=== PATIENT | female | born 1955 | race Hispanic/Latino ===

== ENCOUNTER 2018-11-20 06:31 | Emergency (ER) | payer OTHER ==
[~2018-11-20] VITALS: Ht 157.5 cm; Wt 84.8 kg
--- OUTSIDE RECORDS SUMMARY | 2018-11-20 06:33 | XMS REPORT | Continuity of Care Document ---
Author Author [facility] Interface Address Unknown Phone Unavailable Problems Problem Status Onset Date Classification Date Reported Comments Source Hematuria, gross 01/29/2018 02/01/2018 [facility] BLOOD IN URINE Active 01/29/2018 [facility] Pseudohyperkalemia [place] 01/21/2018 01/24/2018 [facility] ABNORMAL LABS Active 01/21/2018 [facility] Near syncope 01/16/2018 01/19/2018 [facility] HYPOTENSION Active 01/16/2018 [facility] Acute pain of right knee Active Diagnosis 09/09/2018 [facility] Renal cell carcinoma of right kidney Active Diagnosis 10/06/2018 [facility] Prediabetes Active Diagnosis 10/06/2018 [facility] Hyperlipidemia, unspecified hyperlipidemia type Active Diagnosis 10/06/2018 [facility] Essential hypertension Active Diagnosis 10/06/2018 [facility] Encounter for screening mammogram for malignant neoplasm of breast Active Diagnosis 10/06/2018 [facility] Special screening for malignant neoplasms, colon Active Diagnosis 10/06/2018 [facility] Medications Medication Details Route Status Patient Instructions Ordering Provider Order Date Source Sulfamethoxazole 800 MG / Trimethoprim 160 MG Oral Tablet [Bactrim] 1 tab, PO, BID, for UTI, X 3 day, # 6 tab, 0 Refill(s) Active 01/29/2018 [facility] Sodium Chloride 0.9% (Bolus) IV 1,000 mL, 1000 ml/hr, Infuse Over: 1 hr, Route: IV, 1,000, Drug form: INJ, ONCE, Priority: STAT, Dosing Weight 75.455 kg, Start date: 01/16/18 11:52:00 CDT, Stop date: 01/16/18 11:52:00 CDT Inactive 01/16/2018 [facility] Saline Flush 0.9% 10 mL, Route: IVP, Drug Form: INJ, Dosing Weight 75.455, kg, PRN, PRN Line Flush, Start date: 01/16/18 11:52:00 CDT, Duration: 30 day, Stop date: 02/15/18 11:51:00 CDTNotes: (Same as: BD Posiflush) Inactive 01/16/2018 [facility] Opdivo IV Intravenous Active 240 MG/24ML Intravenous once per month [facility] Carvedilol 1 tablet Orally Active 6.25 MG Orally twice a day (bid) [facility] Eliquis as directed Orally Active 5 MG Orally twice a day (bid) [facility] Amlodipine Besylate TK 1 T PO QD Oral Active 10 MG Oral [facility] NIFEdipine ER 1 tablet on an empty stomach Orally Active 30 mg Orally Once a day [facility] Atorvastatin Calcium 1 tablet Orally Active 40 mg Orally Once a day [facility] MetFORMIN HCl ER TK 1 T PO QPM WITH DINNER Oral Active 500 MG Oral [facility] Allergies, Adverse Reactions, Alerts Substance Category Reaction Severity Reaction type Status Date Reported Comments Source Levothyroxine Sodium Adverse Reaction vomiting Adverse Reaction Active 09/27/2018 [facility] levothyroxine Assertion Drug allergy Active [facility] Immunizations Immunization Date Given Site Status Last Updated Comments Source Results Order Name Results Value Reference Range Date Interpretation Comments Source URINE AND STOOL UA Color Red *ABN* (01/29/18 10:20 AM) Yellow 01/29/2018 [facility] URINE AND STOOL UA Urobilinogen <=1.0 mg/dL 0.1 - 1.0 01/29/2018 [facility] URINE AND STOOL UA Mucus Few /LPF None Seen /LPF 01/29/2018 [facility] URINE AND STOOL UA Bacteria Few /HPF None Seen /HPF 01/29/2018 [facility] URINE AND STOOL UA WBC 182 /HPF 0 - 5 01/29/2018 [facility] URINE AND STOOL UA RBC null 0 - 2 01/29/2018 [facility] URINE AND STOOL UA Sq Epi Occasional /LPF Few /LPF 01/29/2018 [facility] URINE AND STOOL UA Leuk Est Trace *ABN* (01/29/18 10:20 AM) Negative 01/29/2018 [facility] URINE AND STOOL UA Blood Moderate *ABN* (7/7/18 10:20 AM) Negative 01/29/2018 [facility] URINE AND STOOL UA Nitrite Negative (01/29/18 10:20 AM) Negative 01/29/2018 [facility] URINE AND STOOL UA Turbidity Clear (01/29/18 10:20 AM) Clear 01/29/2018 [facility] URINE AND STOOL UA Protein 100 mg/dL Negative mg/dL 01/29/2018 [facility] URINE AND STOOL UA Spec Grav 1.008 <=1.030 01/29/2018 [facility] URINE AND STOOL UA pH 6.0 5.0 - 8.0 01/29/2018 [facility] URINE AND STOOL UA Bili Negative *NA* (01/29/18 10:20 AM) Negative 01/29/2018 [facility] URINE AND STOOL UA Ketones Negative mg/dL Negative mg/dL 01/29/2018 [facility] URINE AND STOOL UA Glucose 50 mg/dL Negative mg/dL 01/29/2018 [facility] Culture: Urine No Growth 01/29/2018 [facility] CHEM PANEL A/G Ratio 1.0 0.7 - 1.6 01/29/2018 [facility] CHEM PANEL Globulin 3.7 g/dL 2.7 - 4.2 01/29/2018 [facility] CHEM PANEL AGAP 14.7 meq/L 10.0 - 20.0 01/29/2018 [facility] CHEM PANEL B/C Ratio 20 6 - 25 01/29/2018 [facility] CHEM PANEL eGFR 55 mL/min/1.73m2 01/29/2018 Result Comment: The eGFR is calculated using the CKD-EPI formula. In most young, healthy individuals the eGFR will be >90 mL/min/1.73m2. The eGFR declines with age. An eGFR of 60-89 may be normal in some populations, particularly the elderly, for whom the CKD-EPI formula has not been extensively validated. Use of the eGFR is not recommended in the following populations: Individuals with unstable creatinine concentrations, including patients and those with serious co-morbid conditions. Patients with extremes in muscle mass or diet. The data above are obtained from the National Kidney Disease Education Program (NKDEP) which additionally recommends that when the eGFR is used in patients with extremes of body mass index for purposes of drug dosing, the eGFR should be multiplied by the estimated BMI. [facility] CHEM PANEL Glucose Lvl 120 mg/dL 70 - 99 01/29/2018 [facility] CHEM PANEL Sodium Lvl 141 meq/L 135 - 145 01/29/2018 [facility] CHEM PANEL Creatinine Lvl 1.10 mg/dL 0.50 - 1.40 01/29/2018 [facility] CHEM PANEL BUN 22 mg/dL 7 - 22 01/29/2018 [facility] CHEM PANEL Chloride Lvl 107 meq/L 95 - 109 01/29/2018 [facility] CHEM PANEL Potassium Lvl 4.7 meq/L 3.5 - 5.1 01/29/2018 [facility] CHEM PANEL Albumin Lvl 3.7 g/dL 3.5 - 5.0 01/29/2018 [facility] CHEM PANEL Total Protein 7.4 g/dL 6.4 - 8.4 01/29/2018 [facility] CHEM PANEL Calcium Lvl 9.0 mg/dL 8.5 - 10.5 01/29/2018 [facility] CHEM PANEL CO2 24 meq/L 24 - 32 01/29/2018 [facility] CHEM PANEL ALT 36 unit/L 0 - 65 01/29/2018 [facility] CHEM PANEL Bili Total 0.3 mg/dL 0.2 - 1.3 01/29/2018 [facility] CHEM PANEL Alk Phos 143 unit/L 39 - 136 01/29/2018 [facility] CHEM PANEL AST 22 unit/L 0 - 37 01/29/2018 [facility] HEMATOLOGY Monocytes 4.3 % 2.0 - 12.0 01/29/2018 [facility] HEMATOLOGY Eosinophils 0.6 % 0.0 - 4.0 01/29/2018 [facility] HEMATOLOGY Lymphocytes 20.6 % 20.0 - 40.0 01/29/2018 [facility] HEMATOLOGY Segs 74.3 % 45.0 - 75.0 01/29/2018 [facility] HEMATOLOGY Lymphocytes # 1.3 K/CMM 1.0 - 5.5 01/29/2018 [facility] HEMATOLOGY Segs-Bands # 4.6 K/CMM 1.5 - 8.1 01/29/2018 [facility] HEMATOLOGY Basophils 0.2 % 0.0 - 1.0 01/29/2018 [facility] HEMATOLOGY Monocytes # 0.3 K/CMM 0.0 - 0.8 01/29/2018 [facility] HEMATOLOGY PTT 32.6 s 22.9 - 35.8 01/29/2018 [facility] HEMATOLOGY PT 14.7 s 12.0 - 14.7 01/29/2018 [facility] HEMATOLOGY INR 1.15 0.85 - 1.17 01/29/2018 [facility] RDW 20.2 % 11.5 - 14.5 01/29/2018 [facility] MPV 8.0 fL 7.4 - 10.4 01/29/2018 [facility] Platelet 203 K/CMM 133 - 450 01/29/2018 [facility] RBC 3.74 M/CMM 4.20 - 5.40 01/29/2018 [facility] Hgb 11.1 g/dL 12.0 - 16.0 01/29/2018 [facility] MCV 89.9 fL 80.0 - 98.0 01/29/2018 [facility] MCH 29.8 pg 27.0 - 31.0 01/29/2018 [facility] MCHC 33.2 g/dL 32.0 - 36.0 01/29/2018 [facility] WBC 6.2 K/CMM 3.7 - 10.4 01/29/2018 [facility] Hct 33.6 % 36.0 - 48.0 01/29/2018 [facility] Retroperitoneal Complete US Retroperitoneal Complete US Patient Name: ANGELLA MAHONEY : 1955 Age: 62 years, Female MR: [id number] Study: Retroperitoneal Complete US 01/29/2018 9:25 AM CDT Examination: Renal ultrasound (retroperitoneal) Indication: Hematuria. Clinical information: Hematuria - hx of right nephrectomy, on eliquis, with blood clots in urine. Comparison: None Technique: Transverse and longitudinal images of the kidneys and bladder were obtained. Findings: Right kidney: Right nephrectomy. Left kidney: Length 13.2 x 6.6 x 5.4 cm. Cortex: normal Echogenicity: Normal Collecting system: No echogenic calculi. No hydronephrosis. Cyst/mass: None Urinary bladder: Pulido catheter is present in the decompressed urinary bladder. Aorta: Normal. No aneurysm is identified. Inferior vena cava: Not visualized. Ascites: None IMPRESSION: No acute sonographic abnormality. Right nephrectomy. SL: WR2-M 01/29/2018 - - Read by: Wyatt Mcgrath MD Dictated Date/time: 01/29/18 10:44 Electronically Signed by: Wyatt Mcgrath MD 01/29/18 10:50 FINAL REPORT [facility] Retroperitoneal Complete US Retroperitoneal Complete US Common iliac arteries: Normal. Patient Name: ANGELLA MAHONEY : 1955 Age: 62 years, Female MR: [id number] Study: Retroperitoneal Complete US 01/29/2018 9:25 AM CDT Examination: Renal ultrasound (retroperitoneal) Indication: Hematuria. Clinical information: Hematuria - hx of right nephrectomy, on eliquis, with blood clots in urine. Comparison: None Technique: Transverse and longitudinal images of the kidneys and bladder were obtained. Findings: Right kidney: Right nephrectomy. Left kidney: Length 13.2 x 6.6 x 5.4 cm. Cortex: normal Echogenicity: Normal Collecting system: No echogenic calculi. No hydronephrosis. Cyst/mass: None Urinary bladder: Pulido catheter is present in the decompressed urinary bladder. Aorta: Normal. No aneurysm is identified. Inferior vena cava: Not visualized. Ascites: None IMPRESSION: No acute sonographic abnormality. Right nephrectomy. SL: WR2-M 01/29/2018 - - Read by: Wyatt Mcgrath MD Dictated Date/time: 03/24/18 16:15 Electronically Signed by: Wyatt Mcgrath MD 03/24/18 16:18 FINAL REPORT - - Read by: Wyatt Mcgrath MD Dictated Date/time: 01/29/18 10:44 Electronically Signed by: Wyatt Mcgrath MD 01/29/18 10:50 FINAL REPORT [facility] CHEM PANEL eGFR 66 mL/min/1.73m2 01/21/2018 Result Comment: The eGFR is calculated using the CKD-EPI formula. In most young, healthy individuals the eGFR will be >90 mL/min/1.73m2. The eGFR declines with age. An eGFR of 60-89 may be normal in some populations, particularly the elderly, for whom the CKD-EPI formula has not been extensively validated. Use of the eGFR is not recommended in the following populations: Individuals with unstable creatinine concentrations, including patients and those with serious co-morbid conditions. Patients with extremes in muscle mass or diet. The data above are obtained from the National Kidney Disease Education Program (NKDEP) which additionally recommends that when the eGFR is used in patients with extremes of body mass index for purposes of drug dosing, the eGFR should be multiplied by the estimated BMI. [facility] CHEM PANEL Calcium Lvl 8.7 mg/dL 8.5 - 10.5 01/21/2018 [facility] CHEM PANEL CO2 24 meq/L 24 - 32 01/21/2018 [facility] CHEM PANEL Glucose Lvl 76 mg/dL 70 - 99 01/21/2018 [facility] CHEM PANEL BUN 19 mg/dL 7 - 01/21/2018 [facility] CHEM PANEL Creatinine Lvl 0.95 mg/dL 0.50 - 1.40 01/21/2018 [facility] CHEM PANEL Sodium Lvl 136 meq/L 135 - 145 01/21/2018 [facility] CHEM PANEL Chloride Lvl 105 meq/L 95 - 109 01/21/2018 [facility] CHEM PANEL Potassium Lvl 4.4 meq/L 3.5 - 5.1 01/21/2018 [facility] CHEM PANEL AGAP 11.4 meq/L 10.0 - 20.0 01/21/2018 [facility] CHEM PANEL eGFR 56 mL/min/1.73m2 01/21/2018 Result Comment: The eGFR is calculated using the CKD-EPI formula. In most young, healthy individuals the eGFR will be >90 mL/min/1.73m2. The eGFR declines with age. An eGFR of 60-89 may be normal in some populations, particularly the elderly, for whom the CKD-EPI formula has not been extensively validated. Use of the eGFR is not recommended in the following populations: Individuals with unstable creatinine concentrations, including patients and those with serious co-morbid conditions. Patients with extremes in muscle mass or diet. The data above are obtained from the National Kidney Disease Education Program (NKDEP) which additionally recommends that when the eGFR is used in patients with extremes of body mass index for purposes of drug dosing, the eGFR should be multiplied by the estimated BMI. [facility] CHEM PANEL Calcium Lvl 8.8 mg/dL 8.5 - 10.5 01/21/2018 [facility] CHEM PANEL CO2 26 meq/L 24 - 32 01/21/2018 [facility] CHEM PANEL Chloride Lvl 106 meq/L 95 - 109 01/21/2018 [facility] CHEM PANEL Potassium Lvl 5.4 meq/L 3.5 - 5.1 01/21/2018 [facility] CHEM PANEL Sodium Lvl 139 meq/L 135 - 145 01/21/2018 [facility] CHEM PANEL Glucose Lvl 81 mg/dL 70 - 99 01/21/2018 [facility] CHEM PANEL Creatinine Lvl 1.08 mg/dL 0.50 - 1.40 01/21/2018 [facility] CHEM PANEL BUN 20 mg/dL 7 - 01/21/2018 [facility] CHEM PANEL AGAP 12.4 meq/L 10.0 - 20.0 01/21/2018 [facility] HEMATOLOGY RDW 19.2 % 11.5 - 14.5 01/21/2018 [facility] Platelet 166 K/CMM 133 - 450 01/21/2018 [facility] MPV 8.0 fL 7.4 - 10.4 01/21/2018 [facility] WBC 3.2 K/CMM 3.7 - 10.4 01/21/2018 [facility] MCV 89.3 fL 80.0 - 98.0 01/21/2018 [facility] MCH 29.9 pg 27.0 - 31.0 01/21/2018 [facility] Hgb 12.3 g/dL 12.0 - 16.0 01/21/2018 [facility] MCHC 33.4 g/dL 32.0 - 36.0 01/21/2018 [facility] RBC 4.10 M/CMM 4.20 - 5.40 01/21/2018 [facility] Hct 36.6 % 36.0 - 48.0 01/21/2018 [facility] PT 14.5 s 12.0 - 14.7 01/21/2018 [facility] PTT 36.2 s 22.9 - 35.8 01/21/2018 [facility] INR 1.13 0.85 - 1.17 01/21/2018 [facility] Eosinophils # 0.1 K/CMM 0.0 - 0.5 01/21/2018 [facility] HEMATOLOGY Monocytes # 0.2 K/CMM 0.0 - 0.8 01/21/2018 [facility] Lymphocytes # 1.3 K/CMM 1.0 - 5.5 01/21/2018 [facility] Segs-Bands # 1.6 K/CMM 1.5 - 8.1 01/21/2018 [facility] HEMATOLOGY Basophils 0.8 % 0.0 - 1.0 01/21/2018 [facility] HEMATOLOGY Eosinophils 3.2 % 0.0 - 4.0 01/21/2018 [facility] HEMATOLOGY Lymphocytes 41.5 % 20.0 - 40.0 01/21/2018 [facility] HEMATOLOGY Monocytes 5.3 % 2.0 - 12.0 01/21/2018 [facility] HEMATOLOGY Segs 49.2 % 45.0 - 75.0 01/21/2018 [facility] URINE AND STOOL UA pH 5.0 5.0 - 8.0 01/16/2018 [facility] URINE AND STOOL UA Glucose Negative mg/dL Negative mg/dL 01/16/2018 [facility] URINE AND STOOL UA Protein Negative mg/dL Negative mg/dL 01/16/2018 [facility] URINE AND STOOL UA Urobilinogen <=1.0 mg/dL 0.1 - 1.0 01/16/2018 [facility] URINE AND STOOL UA Sq Epi None Seen 01/16/2018 [facility] URINE AND STOOL UA Hyal Cast 3 /LPF 0 - 2 01/16/2018 [facility] URINE AND STOOL UA Leuk Est Negative (01/16/18 2:28 PM) Negative 01/16/2018 [facility] URINE AND STOOL UA Bacteria Occasional /HPF None Seen /HPF 01/16/2018 [facility] URINE AND STOOL UA RBC 6 /HPF 0 - 2 01/16/2018 [facility] URINE AND STOOL UA WBC 1 /HPF 0 - 5 01/16/2018 [facility] URINE AND STOOL UA Blood Moderate *ABN* (01/16/18 2:28 PM) Negative 01/16/2018 [facility] URINE AND STOOL UA Bili Negative *NA* (01/16/18 2:28 PM) Negative 01/16/2018 [facility] URINE AND STOOL UA Ketones Negative mg/dL Negative mg/dL 01/16/2018 [facility] URINE AND STOOL UA Nitrite Negative (01/16/18 2:28 PM) Negative 01/16/2018 [facility] URINE AND STOOL UA Color Yellow *NA* (01/16/18 2:28 PM) Yellow 01/16/2018 [facility] URINE AND STOOL UA Spec Grav 1.006 <=1.030 01/16/2018 [facility] URINE AND STOOL UA Turbidity Clear (01/16/18 2:28 PM) Clear 01/16/2018 [facility] CARDIAC ENZYMES Total CK 57 unit/L 12 - 191 01/16/2018 [facility] CARDIAC ENZYMES BNP 113 pg/mL <=100 pg/mL 01/16/2018 [facility] CARDIAC ENZYMES CK MB null 0.5 - 3.6 01/16/2018 [facility] CARDIAC ENZYMES Troponin-I null 0.00 - 0.40 01/16/2018 [facility] CARDIAC ENZYMES CK MB Index null 0.0 - 2.5 01/16/2018 [facility] CHEM PANEL eGFR 39 mL/min/1.73m2 01/16/2018 Result Comment: The eGFR is calculated using the CKD-EPI formula. In most young, healthy individuals the eGFR will be >90 mL/min/1.73m2. The eGFR declines with age. An eGFR of 60-89 may be normal in some populations, particularly the elderly, for whom the CKD-EPI formula has not been extensively validated. Use of the eGFR is not recommended in the following populations: Individuals with unstable creatinine concentrations, including patients and those with serious co-morbid conditions. Patients with extremes in muscle mass or diet. The data above are obtained from the National Kidney Disease Education Program (NKDEP) which additionally recommends that when the eGFR is used in patients with extremes of body mass index for purposes of drug dosing, the eGFR should be multiplied by the estimated BMI. [facility] CHEM PANEL Total Protein 7.7 g/dL 6.4 - 8.4 01/16/2018 [facility] CHEM PANEL Albumin Lvl 3.7 g/dL 3.5 - 5.0 01/16/2018 [facility] CHEM PANEL Calcium Lvl 8.8 mg/dL 8.5 - 10.5 01/16/2018 [facility] CHEM PANEL ALT 148 unit/L 0 - 65 01/16/2018 [facility] CHEM PANEL A/G Ratio 0.9 0.7 - 1.6 01/16/2018 [facility] CHEM PANEL Chloride Lvl 103 meq/L 95 - 109 01/16/2018 [facility] CHEM PANEL CO2 22 meq/L 24 - 32 01/16/2018 [facility] CHEM PANEL B/C Ratio 18 6 - 25 01/16/2018 [facility] CHEM PANEL Globulin 4.0 g/dL 2.7 - 4.2 01/16/2018 [facility] CHEM PANEL Bili Total 0.4 mg/dL 0.2 - 1.3 01/16/2018 [facility] CHEM PANEL AGAP 16.3 meq/L 10.0 - 20.0 01/16/2018 [facility] CHEM PANEL Alk Phos 279 unit/L 39 - 136 01/16/2018 [facility] CHEM PANEL AST 70 unit/L 0 - 37 01/16/2018 [facility] CHEM PANEL Glucose Lvl 106 mg/dL 70 - 99 01/16/2018 [facility] CHEM PANEL Sodium Lvl 137 meq/L 135 - 145 01/16/2018 [facility] CHEM PANEL Creatinine Lvl 1.47 mg/dL 0.50 - 1.40 01/16/2018 [facility] CHEM PANEL Potassium Lvl 4.3 meq/L 3.5 - 5.1 01/16/2018 [facility] CHEM PANEL BUN 27 mg/dL 7 - 22 01/16/2018 [facility] MCH 29.0 pg 27.0 - 31.0 01/16/2018 [facility] MCHC 33.1 g/dL 32.0 - 36.0 01/16/2018 [facility] RDW 18.6 % 11.5 - 14.5 01/16/2018 [facility] Platelet 112 K/CMM 133 - 450 01/16/2018 [facility] MCV 87.8 fL 80.0 - 98.0 01/16/2018 [facility] MPV 8.9 fL 7.4 - 10.4 01/16/2018 [facility] Hct 37.0 % 36.0 - 48.0 01/16/2018 [facility] Hgb 12.2 g/dL 12.0 - 16.0 01/16/2018 [facility] RBC 4.21 M/CMM 4.20 - 5.40 01/16/2018 [facility] WBC 2.8 K/CMM 3.7 - 10.4 01/16/2018 [facility] Segs 61.9 % 45.0 - 75.0 01/16/2018 [facility] Lymphocytes 27.0 % 20.0 - 40.0 01/16/2018 [facility] Monocytes 6.1 % 2.0 - 12.0 01/16/2018 [facility] Eosinophils 4.1 % 0.0 - 4.0 01/16/2018 [facility] Basophils 0.9 % 0.0 - 1.0 01/16/2018 [facility] Segs-Bands # 1.7 K/CMM 1.5 - 8.1 01/16/2018 [facility] Lymphocytes # 0.8 K/CMM 1.0 - 5.5 01/16/2018 [facility] Monocytes # 0.2 K/CMM 0.0 - 0.8 01/16/2018 [facility] Eosinophils # 0.1 K/CMM 0.0 - 0.5 01/16/2018 [facility] Chest 1view DX Chest 1view DX Clinical Indication: - near syncope Comparison: None FINDINGS: The frontal chest radiograph shows normal lung volumes without interstitial or airspace opacities, pleural effusions or pneumothorax. The cardiomediastinal contours are normal. The trachea is midline. There is mild elevation of the right hemidiaphragm. There are no clinically significant osseous abnormalities noted. IMPRESSION: No chest radiographic evidence of acute cardiopulmonary disease. SL: [id number] 01/16/2018 - - Read by: Alyssa Mendoza DO Dictated Date/time: 01/16/18 13:29 Electronically Signed by: Alyssa Mendoza DO 01/16/18 13:30 FINAL REPORT [facility] Brain wo contrast CT Brain wo contrast CT Clinical Indication: - syncope; Comparison: None TECHNIQUE: CT images were obtained from the foramen magnum to the vertex without the use of intravenous contrast on a multidetector CT. Coronal and sagittal reconstructions were obtained. CT radiation dose DLP: 1196.82 mGy-cm FINDINGS: BRAIN PARENCHYMA: There are normal sykes-white interfaces, sulci and gyri. There are no focal mass lesions on this noncontrast head CT. There is no mass effect, midline shift or edema. There are no intra-axial or extra-axial fluid collections, intraventricular or intraparenchymal hemorrhage. The pineal, sellar, brainstem, cerebellum and skull base regions appear unremarkable. VENTRICLES: The lateral ventricles, third and fourth ventricles appear unremarkable. The basilar cisterns are normal. ORBITS, MASTOIDS AND PARANASAL SINUSES: The visualized orbits and paranasal sinuses are unremarkable. The mastoid air cells are clear. SKULL: There are no osseous abnormalities. If there is further concern for intracranial pathology or acute stroke, MRI of the brain may be performed for complete assessment. IMPRESSION: Unremarkable noncontrast head CT with no mass, hemorrhage or subacute stroke. SL: WR3-M 01/16/2018 - - Read by: Derrick Wooten MD Dictated Date/time: 01/16/18 13:19 Electronically Signed by: Derrick Wooten MD 01/16/18 13:20 FINAL REPORT [facility] Vital Signs Vital Sign Value Date Comments Source Weight 196 09/27/2018 [facility] Height 62 09/27/2018 [facility] Heart Rate 94 09/27/2018 [facility] Diastolic (mm Hg) 68 09/27/2018 [facility] Systolic (mm Hg) 130 09/27/2018 [facility] Weight 192 08/23/2018 [facility] Height 62 08/23/2018 [facility] Heart Rate 85 08/23/2018 [facility] Diastolic (mm Hg) 70 08/23/2018 [facility] Systolic (mm Hg) 134 08/23/2018 [facility] Systolic (mm Hg) 123 01/29/2018 [facility] Diastolic (mm Hg) 85 01/29/2018 [facility] Temperature Oral (F) 98.0 F 01/29/2018 [facility] Heart Rate 68 01/29/2018 [facility] Respitory Rate 8 01/29/2018 [facility] Respitory Rate 18 01/29/2018 [facility] Diastolic (mm Hg) 62 01/29/2018 [facility] Heart Rate 70 01/29/2018 [facility] Systolic (mm Hg) 115 01/29/2018 [facility] Temperature Oral (F) 98.0 F 01/29/2018 [facility] Respitory Rate 18 01/29/2018 [facility] Heart Rate 80 01/29/2018 [facility] Systolic (mm Hg) 135 01/29/2018 [facility] Diastolic (mm Hg) 73 01/29/2018 [facility] Systolic (mm Hg) 178 01/21/2018 [facility] Diastolic (mm Hg) 77 01/21/2018 [facility] Respitory Rate 15 01/21/2018 [facility] Systolic (mm Hg) 126 01/21/2018 [facility] Diastolic (mm Hg) 66 01/21/2018 [facility] Respitory Rate 18 01/21/2018 [facility] Heart Rate 72 01/21/2018 [facility] Temperature Oral (F) 98.3 F 01/21/2018 [facility] Respitory Rate 18 01/16/2018 [facility] Systolic (mm Hg) 147 01/16/2018 [facility] Diastolic (mm Hg) 62 01/16/2018 [facility] Heart Rate 63 01/16/2018 [facility] Systolic (mm Hg) 123 01/16/2018 [facility] Diastolic (mm Hg) 55 01/16/2018 [facility] Respitory Rate 18 01/16/2018 [facility] Weight 75.455 01/16/2018 [facility] Height 157.48 cm 01/16/2018 [facility] BMI Calculated 30.43 01/16/2018 [facility] Heart Rate 63 01/16/2018 [facility] Temperature Oral (F) 98.6 F 01/16/2018 [facility] Systolic (mm Hg) 106 01/16/2018 [facility] Diastolic (mm Hg) 65 01/16/2018 [facility] Respitory Rate 18 01/16/2018 [facility] Encounters Location Location Details Encounter Type Encounter Number Reason For Visit Attending Provider ADM Date DC Date Status Source [facility] Emergency [id number] Charles Ly 01/16/2018 01/16/2018 [facility] Emergency [id number] Charles Ly 01/21/2018 01/21/2018 [facility] Emergency [id number] Chapis William 01/29/2018 01/29/2018 [facility] Procedures Procedure Code Date Perfomer Comments Source
--- OUTSIDE RECORDS SUMMARY | 2018-11-20 06:33 | XMS REPORT | Clinical Summary ---
Author Author [facility] Organization [facility] Address Unknown Phone Unavailable Care Team Providers Care Student Support Services Director Name Role Phone Mustapha White PCP Wyatt Beltre 33 Unavailable Allergies Comments Active Allergy Reactions Severity Noted Date Other reaction(s): vomiting Levothyroxine 12/10/2017 Lisinopril 12/10/2017 Medications End Date Status Medication Sig Dispensed Refills Start Date Active metFORMIN (GLUCOPHAGE-XR) . 0 500 MG 24 hr tablet 8 Active atorvastatin (LIPITOR) 40 Take 40 mg by 0 MG tablet mouth daily. Active NIFEdipine (ADALAT CC) 30 Take 30 mg by 0 MG 24 hr tablet mouth daily. Active carvedilol (COREG) 6.25 Take 6.25 mg 0 MG tablet by mouth 2 (two) times daily with breakfast and dinner. Active apixaban (ELIQUIS) 5 mg Take 5 mg by 0 Tab tablet mouth 2 (two) times daily. Active NIVOLUMAB IV Inject 0 intravenously . 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) 09/27/2017 (S/P Neprectomy, Right 09/26/2017) S/P nephrectomy, right (09/26/2017) 09/27/2017 Obesity, Class I, BMI 30-34.9 09/27/2017 S/P tubal ligation 09/27/2017 CKD (chronic kidney disease) 09/27/2017 Anemia (Hgb 7.7 on admit) 09/27/2017 Diastolic dysfunction (L atrium, grade 1) 09/27/2017 Encounters Care Team Description Date Type Specialty Lianet He MD Liver metastases (HCC) 10/17/2018 Hospital Encounter Lianet He MD Right renal mass 10/17/2018 Hospital Encounter Lianet He MD Liver metastases (HCC) (Primary Dx); Right renal mass 10/03/2018 Outside Orders Central Scheduling [facility]ignant neoplasm of right kidney, except renal pelvis (HCC) 09/19/2018 Hospital Computed Tomography Encounter Lianet He MD 1, [facility] [address] Room Malignant neoplasm of right kidney, except renal pelvis (HCC) 09/19/2018 Hospital Computed Tomography Encounter Lianet He MD Malignant neoplasm of right kidney, except renal pelvis (HCC) (Primary Dx) 09/02/2018 Outside Orders Central Scheduling after 11/19/2017 Social History Date Tobacco Use Types Packs/Day Years Used Never Smoker Smokeless Tobacco: Never Used Alcohol Use Drinks/Week oz/Week Comments No Sex Assigned at Date Recorded Not on file Industry Job Start Date Occupation Not on file Not on file Not on file Travel End Travel History Travel Start No recent travel history available. Last Filed Vital Signs Time Taken Vital Sign Reading 10/17/2018 7:47 PM CDT Blood Pressure 158/72 10/17/2018 7:47 PM CDT Pulse 75 10/17/2018 12:15 PM CDT Temperature 37.1 C (98.7 F) 10/17/2018 7:47 PM CDT Respiratory Rate 20 10/17/2018 3:00 PM CDT Oxygen Saturation 98% - Inhaled Oxygen - Concentration 10/17/2018 6:19 AM CDT Weight 85.7 kg (189 lb) 10/17/2018 6:19 AM CDT Height 157.5 cm (5' 2") 10/17/2018 6:19 AM CDT Body Mass Index 34.57 Plan of Treatment Not on file Implants Device Identifier Shelf Expiration Date Model / Serial / Lot Implanted Type Area Manufactur er 06/22/2022 [id number] / NONE / [id number] Patch Vasc Dwarf 1.65mm 1x6in Graft/Patc [id number] - Snone h BARD:PERIP Implanted: Qty: 1 on 09/26/2017 by Ming Rush MD Procedures Comments Procedure Name Priority Date/Time Associated Diagnosis TISSUE EXAM AP Routine 10/17/2018 2:26 PM CDT US LIVER BIOPSY Routine 10/17/2018 1:15 PM CDT IR PORT-A-CATH PLACEMENT Routine 10/17/2018 11:05 AM CDT CBC W/PLT COUNT & AUTO STAT 10/17/2018 DIFFERENTIAL 7:17 AM CDT PT/APTT STAT 10/17/2018 7:17 AM CDT CBC W/PLT COUNT & AUTO STAT 10/17/2018 DIFFERENTIAL 7:[address] CHEST WITH IV CONTRAST Routine 09/19/2018 Malignant neoplasm of 7:38 AM [employer] right kidney, except renal pelvis (HCC) CT ABDOMEN/PELVIS WITH IV Routine 09/19/2018 Malignant neoplasm of CONTRAST 7:38 AM [employer] right kidney, except renal pelvis (HCC) POCT-CREATININE Routine 09/19/2018 7:03 AM [employer] after 11/19/2017 Results * Tissue Exam (10/17/2018 2:26 PM CDT) Case Report Surgical Pathology [facility] Report [facility] Case: [id number] Authorizing Provider:Lianet eH MD Collected: 10/17/2018 1426 Ordering Location: [facility] Radiology AngioReceived: 10/17/2018 1524 Pathologist: Eddie Zuniga MD Specimen:Biopsy, Liver DIAGNOSIS LIVER, MASS, BIOPSY: [facility] - CARCINOMA WITH [facility] EOSINOPHILIC AND CLEAR CELL FEATURES, COMPATIBLE WITH METASTASIS FROM PATIENT'S RENAL PRIMARY (SEE COMMENT) Signing Pathologist Direct Phone Line: [phone] COMMENT Sections show sheets of [facility] malignant cells with abundant [facility] eosinophilic and clear cell features. Small pieces of benign liver parenchyma are noted in the background. By immunohistochemistry, the tumor cells are positive for PAX8, while predominantly negative for arginase and HepPar. MOC31 shows weak focal staining in tumor cells. In light of patient's history of renal cell carcinoma, the findings are supportive of a diagnosis of metastatic carcinoma of renal origin. CPT Code(s) 75580, 75354, 91826 x 3 [facility] CLINICAL HISTORY Platinum liver mass 4.8 x 4.4 x [facility] 5.3 cm, malignant neoplasm of [facility] liver SPECIMEN SOURCE Platinum liver biopsy [facility] GROSS DESCRIPTION The specimen is received in a [facility] formalin-filled container [facility] labeled with the patient's information and labeled "pechanga liver mass biopsy" and consists of multiple stringy fragments of smalls cores ranging from 0.1 to 0.5 cm, submitted entirely in A1. CG/ew SPECIAL STUDIES The interpretation of this [facility] case included the use of [facility] immunohistochemistry or special stains. Please see the immunohistochemistry results in the COMMENT section. Immunohistochemistry technical testing was performed at [facility], Pathology Laboratory where it was developed and its performance characteristics were determined. It has not been cleared or approved by the U.S. Food and Drug Administration. The FDA has determined that such clearance or approval is not necessary. The test is used for clinical purposes. It should not be regarded as investigational or for research. This laboratory is certified under the Clinical Laboratory Improvement Amendments of 1988 (CLIA-88) as qualified to perform high complexity clinical laboratory testing. Specimen Tissue - Biopsy, Liver Performing Organization Address City/State/Zipcode Phone Number [facility] [address] [place] [address] [facility] * US liver biopsy (10/17/2018 1:15 PM CDT) Specimen Narrative Performed At FINAL REPORT [employer] PROCEDURE: Ultrasound-guided core biopsy of a liver mass. INDICATION: Liver mass. COMPARISON: CT from 09/19/2018. SEDATION: Intravenous moderate sedation was administered by radiology nursing and monitored under the direction of the undersigned radiologist. The patient's vital signs were monitored throughout the procedure and recorded in the patient's medical record by radiology nursing. Total intraservice time of sedation was 25 minutes. MEDICATIONS: 0.5 mg Versed, 25 mcg fentanyl DESCRIPTION: After obtaining informed written consent, the patient was brought to the procedure room and placed in the supine position. Preliminary ultrasound scan revealed a 5.1 x 4.8 x 4.4 cm mass in the inferior right hepatic lobe. This mass was targeted for biopsy. The overlying skin was prepped and draped in the usual, sterile fashion and local 1% lidocaine anesthesia was administered. Under ultrasound guidance, a 19-gauge introducer needle was placed into the mass, and three, 20-gauge core biopsy samples were obtained. The introducer needle was repositioned, and two additional 20-gauge core biopsies were obtained in a slightly different location within the mass. Gelfoam was instilled to obtain hemostasis. Follow-up exam revealed no evidence for hematoma. There were no immediate complications. IMPRESSION: Successful core biopsy of a right inferior hepatic lobe mass. Signed: Nilson Nielson MD Report Verified Date/Time:10/17/2018 19:32:11 Reading Location: [facility] [id number] Ultrasound Reading Room Procedure Note Interface, External Ris In - 10/17/2018 7:34 PM CDT FINAL REPORT PROCEDURE: Ultrasound-guided core biopsy of a liver mass. INDICATION: Liver mass. COMPARISON: CT from 09/19/2018. SEDATION: Intravenous moderate sedation was administered by radiology nursing and monitored under the direction of the undersigned radiologist. The patient's vital signs were monitored throughout the procedure and recorded in the patient's medical record by radiology nursing. Total intraservice time of sedation was 25 minutes. MEDICATIONS: 0.5 mg Versed, 25 mcg fentanyl DESCRIPTION: After obtaining informed written consent, the patient was brought to the procedure room and placed in the supine position. Preliminary ultrasound scan revealed a 5.1 x 4.8 x 4.4 cm mass in the inferior right hepatic lobe. This mass was targeted for biopsy. The overlying skin was prepped and draped in the usual, sterile fashion and local 1% lidocaine anesthesia was administered. Under ultrasound guidance, a 19-gauge introducer needle was placed into the mass, and three, 20-gauge core biopsy samples were obtained. The introducer needle was repositioned, and two additional 20-gauge core biopsies were obtained in a slightly different location within the mass. Gelfoam was instilled to obtain hemostasis. Follow-up exam revealed no evidence for hematoma. There were no immediate complications. IMPRESSION: Successful core biopsy of a right inferior hepatic lobe mass. Signed: Nilson Nielson MD Report Verified Date/Time: 10/17/2018 19:32:11 Reading Location: [facility] [id number] Ultrasound Reading Room Performing Organization Address City/State/Zipcode Phone Number [facility] * IR Port-a-Cath Placement (10/17/2018 11:05 AM CDT) Specimen Narrative Performed At FINAL REPORT [facility] HISTORY: Hepatocellular carcinoma PROCEDURE: Following informed written consent, the patient's right cervical region and anterior chest wall were prepped draped in the usual sterile manner and maximum sterile barrier techniques were utilized. 2% lidocaine was given locally for anesthesia. Additionally, the patient received 1 mg IV Versed and 50 mcg IV fentanyl for conscious sedation and pain control. Vital signs were monitored and remained stable. 1 g IV Ancef was given prior to the procedure for antibiotic prophylaxis. Conscious sedation and continuous patient monitoring were performed by the attending radiologist and a registered nurse for approximately 30 minutes during the procedure. Access was gained to the right internal jugular vein using ultrasound guidance a micropuncture needle. A short transverse incision was made in the right anterior chest wall. Using blunt dissection, a subcutaneous pocket was created just beneath the incision. The va catheter was tunneled from the pocket to the jugular access site in place through a peel-away sheath into position centrally under fluoroscopic control. The catheter was cut to appropriate length and attached to the portacatheter reservoir which was subsequently buried in the subcutaneous. The pocket was irrigated using an antibiotic solution enclosed using 3-0 Monocryl resorbable suture. Steri-Strips, dermabond and a sterile bandage were applied. There were no immediate complications. Patient was discharged from the department in stable condition. FINDINGS: Spot film of the chest following portacatheter placement demonstrates the portacatheter to lie in expected position with its tip over the caval atrial junction. There is no pneumothorax. Ultrasound image obtained prior to port placement demonstrates a patent and compressible right internal jugular vein without evidence for thrombosis. Ultrasound image of the right internal jugular vein was obtained and archived on PACs. IMPRESSION: 1. Successful uncomplicated placement of a right internal jugular chest port. Fluoroscopy time: 1.4 minutes Estimated dose in (Ka,r): 10.7 mGy Signed: Nupur Luke MD Report Verified Date/Time:10/17/2018 18:04:41 Reading Location: [place] [id number] Angio Body Reading Room Procedure Note Interface, External Ris In - 10/17/2018 6:06 PM CDT FINAL REPORT HISTORY: Hepatocellular carcinoma PROCEDURE: Following informed written consent, the patient's right cervical region and anterior chest wall were prepped draped in the usual sterile manner and maximum sterile barrier techniques were utilized. 2% lidocaine was given locally for anesthesia. Additionally, the patient received 1 mg IV Versed and 50 mcg IV fentanyl for conscious sedation and pain control. Vital signs were monitored and remained stable. 1 g IV Ancef was given prior to the procedure for antibiotic prophylaxis. Conscious sedation and continuous patient monitoring were performed by the attending radiologist and a registered nurse for approximately 30 minutes during the procedure. Access was gained to the right internal jugular vein using ultrasound guidance a micropuncture needle. A short transverse incision was made in the right anterior chest wall. Using blunt dissection, a subcutaneous pocket was created just beneath the incision. The va catheter was tunneled from the pocket to the jugular access site in place through a peel-away sheath into position centrally under fluoroscopic control. The catheter was cut to appropriate length and attached to the portacatheter reservoir which was subsequently buried in the subcutaneous. The pocket was irrigated using an antibiotic solution enclosed using 3-0 Monocryl resorbable suture. Steri-Strips, dermabond and a sterile bandage were applied. There were no immediate complications. Patient was discharged from the department in stable condition. FINDINGS: Spot film of the chest following portacatheter placement demonstrates the portacatheter to lie in expected position with its tip over the caval atrial junction. There is no pneumothorax. Ultrasound image obtained prior to port placement demonstrates a patent and compressible right internal jugular vein without evidence for thrombosis. Ultrasound image of the right internal jugular vein was obtained and archived on PACs. IMPRESSION: 1. Successful uncomplicated placement of a right internal jugular chest port. Fluoroscopy time: 1.4 minutes Estimated dose in (Ka,r): 10.7 mGy Signed: Nupur Luke MD Report Verified Date/Time: 10/17/2018 18:04:41 Reading Location: [facility] P048 Angio Body Reading Room Performing Organization Address City/State/Zipcode Phone Number [facility] * PT/aPTT (10/17/2018 7:17 AM CDT) Protime 13.7 11.7 - 14.7 seconds [facility] INR 1.0 <=5.9 [facility] PTT 31.0 22.5 - 36.0 seconds [facility] Specimen Blood Narrative Performed At RECOMMENDED COUMADIN/WARFARIN INR THERAPY RANGES [facility] STANDARD DOSE: 2.0 - 3.0 Includes: PROPHYLAXIS for venous thrombosis, [facility] systemic embolization; TREATMENT for venous thrombosis and/or pulmonary embolus. HIGH RISK: Target INR is 2.5-3.5 for patients with mechanical heart valves. Performing Organization Address City/[facility]/Zipcode Phone Number [place] [phone] [place] [address] [facility] * CBC with platelet count + automated diff (10/17/2018 7:17 AM CDT) WBC 7.5 3.5 - 10.5 K/L [facility] RBC 3.75 (L) 3.93 - 5.22 M/L [facility] Hemoglobin 11.0 (L) 11.2 - 15.7 GM/DL [facility] Hematocrit 36.1 34.1 - 44.9 % [facility] MCV 96.3 (H) 79.4 - 94.8 fL [facility] MCH 29.3 25.6 - 32.2 pg [facility] MCHC 30.5 (L) 32.2 - 35.5 GM/DL [facility] RDW 14.1 11.7 - 14.4 % [facility] Platelets 229 150 - 450 K/CU MM [facility] MPV 11.3 9.4 - 12.3 fL [facility] nRBC 0 0 - 0 /100 WBC [facility] % Neutros 71 % [facility] % Lymphs 22 % [facility] % Monos 5 % [facility] % Eos 1 % [facility] % Baso 1 % [facility] # Neutros 5.35 1.56 - 6.13 K/L [facility] # Lymphs 1.66 1.18 - 3.74 K/L [facility] # Monos 0.36 0.24 - 0.36 K/L [facility] # Eos 0.08 0.04 - 0.36 K/L [facility] # Baso 0.05 0.01 - 0.08 K/L [facility] Immature 0 0 - 1 % [facility] Granulocytes-[facility] Specimen Blood Performing Organization Address City/State/Zipcode Phone Number [facility] [address] [place] [address] MED[facility]ENTER * CT Abdomen/Pelvis with IV Contrast (09/19/2018 7:38 AM [employer]) Specimen Narrative Performed At FINAL REPORT [facility] EXAM: CT Chest, Abdomen and Pelvis WITH contrast INDICATION: Renal cell [id number] COMPARISON: May 09, 2018 TECHNIQUE: Chest, abdomen and pelvis were scanned utilizing a multidetector helical scanner from the lung apex to the pubic symphysis after administration of IV contrast. Coronal and sagittal reformations were obtained. Routine protocol was performed. Scan was performed when during portal venous phase. IV CONTRAST: 150 mL of Omnipaque 300 ORAL CONTRAST: Water COMPLICATIONS: None RADIATION DOSE: Total DLP: 1067 mGy*cm Estimated effective dose: (DLP x 0.015 x size factor) mSv CTDIvol has been reviewed. It is below the limits set by the Radiation Protocol Committee (RPC).Dose modulation, iterative reconstruction, and/or weight based adjustment of the mA/kV was utilized to reduce the radiation dose to as low as reasonably achievable. FINDINGS: LINES and TUBES: None LUNGS AND AIRWAYS: Right lung nodules: *Right middle lobe nodule 1.1 cm image 60, stable *Right lower lobe nodule 0.8 cm image 80, stable PLEURA: The pleural spaces are clear. HEART AND MEDIASTINUM: The thyroid gland is normal.No mediastinal, hilar or axillary lymphadenopathy.The heart is normal in size. There is no pericardial effusion. HEPATOBILIARY: Hepatic lesions: The phase of the contrast currently is in the venous phase and in the prior scan more arterial. *Right hepatic lobe 2.3 cm lesion image 46, previously 1.4 cm *Right hepatic lobe 5 cm lesion image 59, previously 4.9 cm *Left hepatic lobe 1.2 cm lesion image 46, previously 0.8 cm *Additional subcentimeter scattered lesions. GALLBLADDER: No radio-opaque stones or sludge.No wall thickening. SPLEEN: No splenomegaly. PANCREAS: No focal masses or ductal dilatation. ADRENALS: Right adrenal gland not well visualized. KIDNEYS/URETERS: Right nephrectomy with extensive postsurgical clips. Left kidney normal. No cystic or solid mass lesions.No stones. GI TRACT: No abnormal distention, wall thickening, or evidence of bowel obstruction. Appendix is normal. PELVIC ORGANS/BLADDER: Unremarkable. LYMPH NODES: No lymphadenopathy. VESSELS: Unremarkable. PERITONEUM / RETROPERITONEUM: No free air or fluid. BONES: Unremarkable. SOFT TISSUES: Unremarkable. IMPRESSION: 1.Right nephrectomy. Increase in size of the hepatic lobe lesions and stable size of pulmonary lesions. Signed: Derek Suh MD Report Verified Date/Time:09/19/2018 09:47:22 Procedure Note Interface, External Ris In - 09/19/2018 9:49 AM [employer] FINAL REPORT EXAM: CT Chest, Abdomen and Pelvis WITH contrast INDICATION: Renal cell carcinoma C64.1 COMPARISON: May 09, 2018 TECHNIQUE: Chest, abdomen and pelvis were scanned utilizing a multidetector helical scanner from the lung apex to the pubic symphysis after administration of IV contrast. Coronal and sagittal reformations were obtained. Routine protocol was performed. Scan was performed when during portal venous phase. IV CONTRAST: 150 mL of Omnipaque 300 ORAL CONTRAST: Water COMPLICATIONS: None RADIATION DOSE: Total DLP: 1067 mGy*cm Estimated effective dose: (DLP x 0.015 x size factor) mSv CTDIvol has been reviewed. It is below the limits set by the Radiation Protocol Committee (RPC).Dose modulation, iterative reconstruction, and/or weight based adjustment of the mA/kV was utilized to reduce the radiation dose to as low as reasonably achievable. FINDINGS: LINES and TUBES: None LUNGS AND AIRWAYS: Right lung nodules: *Right middle lobe nodule 1.1 cm image 60, stable *Right lower lobe nodule 0.8 cm image 80, stable PLEURA: The pleural spaces are clear. HEART AND MEDIASTINUM: The thyroid gland is normal. No mediastinal, hilar or axillary lymphadenopathy. The heart is normal in size. There is no pericardial effusion. HEPATOBILIARY: Hepatic lesions: The phase of the contrast currently is in the venous phase and in the prior scan more arterial. *Right hepatic lobe 2.3 cm lesion image 46, previously 1.4 cm *Right hepatic lobe 5 cm lesion image 59, previously 4.9 cm *Left hepatic lobe 1.2 cm lesion image 46, previously 0.8 cm *Additional subcentimeter scattered lesions. GALLBLADDER: No radio-opaque stones or sludge. No wall thickening. SPLEEN: No splenomegaly. PANCREAS: No focal masses or ductal dilatation. ADRENALS: Right adrenal gland not well visualized. KIDNEYS/URETERS: Right nephrectomy with extensive postsurgical clips. Left kidney normal. No cystic or solid mass lesions. No stones. GI TRACT: No abnormal distention, wall thickening, or evidence of bowel obstruction. Appendix is normal. PELVIC ORGANS/BLADDER: Unremarkable. LYMPH NODES: No lymphadenopathy. VESSELS: Unremarkable. PERITONEUM / RETROPERITONEUM: No free air or fluid. BONES: Unremarkable. SOFT TISSUES: Unremarkable. IMPRESSION: 1.Right nephrectomy. Increase in size of the hepatic lobe lesions and stable size of pulmonary lesions. Signed: Derek Suh MD Report Verified Date/Time: 09/19/2018 09:47:22 Performing Organization Address City/State/Zipcode Phone Number [facility] * CT Chest with IV Contrast (09/19/2018 7:38 AM [employer]) Specimen Narrative Performed At FINAL REPORT [facility] EXAM: CT Chest, Abdomen and Pelvis WITH contrast INDICATION: Renal cell [id number] COMPARISON: May 09, 2018 TECHNIQUE: Chest, abdomen and pelvis were scanned utilizing a multidetector helical scanner from the lung apex to the pubic symphysis after administration of IV contrast. Coronal and sagittal reformations were obtained. Routine protocol was performed. Scan was performed when during portal venous phase. IV CONTRAST: 150 mL of Omnipaque 300 ORAL CONTRAST: Water COMPLICATIONS: None RADIATION DOSE: Total DLP: 1067 mGy*cm Estimated effective dose: (DLP x 0.015 x size factor) mSv CTDIvol has been reviewed. It is below the limits set by the Radiation Protocol Committee (RPC).Dose modulation, iterative reconstruction, and/or weight based adjustment of the mA/kV was utilized to reduce the radiation dose to as low as reasonably achievable. FINDINGS: LINES and TUBES: None LUNGS AND AIRWAYS: Right lung nodules: *Right middle lobe nodule 1.1 cm image 60, stable *Right lower lobe nodule 0.8 cm image 80, stable PLEURA: The pleural spaces are clear. HEART AND MEDIASTINUM: The thyroid gland is normal.No mediastinal, hilar or axillary lymphadenopathy.The heart is normal in size. There is no pericardial effusion. HEPATOBILIARY: Hepatic lesions: The phase of the contrast currently is in the venous phase and in the prior scan more arterial. *Right hepatic lobe 2.3 cm lesion image 46, previously 1.4 cm *Right hepatic lobe 5 cm lesion image 59, previously 4.9 cm *Left hepatic lobe 1.2 cm lesion image 46, previously 0.8 cm *Additional subcentimeter scattered lesions. GALLBLADDER: No radio-opaque stones or sludge.No wall thickening. SPLEEN: No splenomegaly. PANCREAS: No focal masses or ductal dilatation. ADRENALS: Right adrenal gland not well visualized. KIDNEYS/URETERS: Right nephrectomy with extensive postsurgical clips. Left kidney normal. No cystic or solid mass lesions.No stones. GI TRACT: No abnormal distention, wall thickening, or evidence of bowel obstruction. Appendix is normal. PELVIC ORGANS/BLADDER: Unremarkable. LYMPH NODES: No lymphadenopathy. VESSELS: Unremarkable. PERITONEUM / RETROPERITONEUM: No free air or fluid. BONES: Unremarkable. SOFT TISSUES: Unremarkable. IMPRESSION: 1.Right nephrectomy. Increase in size of the hepatic lobe lesions and stable size of pulmonary lesions. Signed: Derek Suh MD Report Verified Date/Time:09/19/2018 09:47:22 Procedure Note Interface, External Ris In - 09/19/2018 9:49 AM RESOURCE MANAGER FORESTER FINAL REPORT EXAM: CT Chest, Abdomen and Pelvis WITH contrast INDICATION: Renal cell carcinoma C64.1 COMPARISON: May 09, 2018 TECHNIQUE: Chest, abdomen and pelvis were scanned utilizing a multidetector helical scanner from the lung apex to the pubic symphysis after administration of IV contrast. Coronal and sagittal reformations were obtained. Routine protocol was performed. Scan was performed when during portal venous phase. IV CONTRAST: 150 mL of Omnipaque 300 ORAL CONTRAST: Water COMPLICATIONS: None RADIATION DOSE: Total DLP: 1067 mGy*cm Estimated effective dose: (DLP x 0.015 x size factor) mSv CTDIvol has been reviewed. It is below the limits set by the Radiation Protocol Committee (RPC).Dose modulation, iterative reconstruction, and/or weight based adjustment of the mA/kV was utilized to reduce the radiation dose to as low as reasonably achievable. FINDINGS: LINES and TUBES: None LUNGS AND AIRWAYS: Right lung nodules: *Right middle lobe nodule 1.1 cm image 60, stable *Right lower lobe nodule 0.8 cm image 80, stable PLEURA: The pleural spaces are clear. HEART AND MEDIASTINUM: The thyroid gland is normal. No mediastinal, hilar or axillary lymphadenopathy. The heart is normal in size. There is no pericardial effusion. HEPATOBILIARY: Hepatic lesions: The phase of the contrast currently is in the venous phase and in the prior scan more arterial. *Right hepatic lobe 2.3 cm lesion image 46, previously 1.4 cm *Right hepatic lobe 5 cm lesion image 59, previously 4.9 cm *Left hepatic lobe 1.2 cm lesion image 46, previously 0.8 cm *Additional subcentimeter scattered lesions. GALLBLADDER: No radio-opaque stones or sludge. No wall thickening. SPLEEN: No splenomegaly. PANCREAS: No focal masses or ductal dilatation. ADRENALS: Right adrenal gland not well visualized. KIDNEYS/URETERS: Right nephrectomy with extensive postsurgical clips. Left kidney normal. No cystic or solid mass lesions. No stones. GI TRACT: No abnormal distention, wall thickening, or evidence of bowel obstruction. Appendix is normal. PELVIC ORGANS/BLADDER: Unremarkable. LYMPH NODES: No lymphadenopathy. VESSELS: Unremarkable. PERITONEUM / RETROPERITONEUM: No free air or fluid. BONES: Unremarkable. SOFT TISSUES: Unremarkable. IMPRESSION: 1.Right nephrectomy. Increase in size of the hepatic lobe lesions and stable size of pulmonary lesions. Signed: Derek Suh MD Report Verified Date/Time: 09/19/2018 09:47:22 Performing Organization Address [facility] Number GE RIS * POC-Creatinine (09/19/2018 7:03 AM RESOURCE MANAGER FORESTER) POC-Creatinine 1.1Comment: TESTED AT [facility] 0.6 - 1.3 mg/dL [facility] [address] [place] [facility] [place] [address] POC-EGFR 51 mL/min/1.73M2 [facility] Specimen Blood Performing Organization Address [facility] Cent[facility]ode Phone Number [address] [address] [facility] after 11/19/2017 Insurance Payer Benefit Subscriber ID Type Phone Address Plan / Group [employer] xxxxxxxxxx [employer] EXCHANGE Advance Directives For more information, please contact: [address] [address] Date Inactivated Comments Code Status Date Activated 10/17/2018 4:44 PM Full Code 10/17/2018 2:21 PM This code status was determined by: Patient 10/07/2017 3:09 PM Full Code 09/24/2017 5:35 PM This code status was determined by: Patient 09/24/2017 5:35 PM Full Code 09/24/2017 4:47 PM This code status was determined by: Patient
--- OUTSIDE RECORDS SUMMARY | 2018-11-20 06:33 | XMS REPORT ---
Author Author Amberly Dubois Organization [employer] Address Unknown Phone Unavailable Care Team Providers Care Produce Sorter Name Role Phone Gopal Torres Amberly CP Unavailable Allergies, Adverse Reactions, Alerts Substance Reaction Event Type Levothyroxine Sodium vomiting Drug Allergy Problems Problem Type Condition Code Onset Dates Condition Status Assessment Hyperlipidemia, unspecified hyperlipidemia type E78.5 Active Assessment Encounter for screening mammogram for malignant neoplasm of breast Z12.31 Active Assessment Essential hypertension I10 Active Assessment Prediabetes R73.03 Active Assessment Renal cell carcinoma of right kidney C64.1 Active Problem Hyperlipidemia, unspecified hyperlipidemia type E78.5 Active Problem Prediabetes R73.03 Active Problem Essential hypertension I10 Active Assessment Encounter for routine gynecological examination Z01.419 Active Assessment Special screening for malignant neoplasms, colon Z12.11 Active Problem Renal cell carcinoma of right kidney C64.1 Active Medications Medication Code System Code Instructions Start Date End Date Status Dosage NIFEdipine ER [facility] 34858722095 30 mg Orally Once a day Active 1 tablet on an empty stomach Eliquis [facility] 76124326570 5 MG Orally twice a day (bid) Active as directed Atorvastatin Calcium [facility] 29234491546 40 mg Orally Once a day Active 1 tablet Carvedilol [facility] 96676948059 6.25 MG Orally twice a day (bid) Active 1 tablet Opdivo [facility] 25723822185 240 MG/24ML Intravenous once per month Active IV Vital Signs Date/Time: September 27, 2018 BMI 35.84 Index Weight 196 lbs Height 62 in Cardiac Monitoring Heart Rate 94 /min Blood Pressure Diastolic 68 mm Hg Blood Pressure Systolic 130 mm Hg Results Name Result Date Reference Range Unit Abnormality Flag THINPREP TIS PAP W/REFL HPV RNA HR E6/E7,TMA ----SOURCE: None given [id number] N ----CLINICAL INFORMATION: None given [id number] N ----LMP: NONE GIVEN [id number] N ----PREV. PAP: NONE GIVEN [id number] N ----PREV. BX: NONE GIVEN [id number] N Summary Purpose [employer] Submission
--- OUTSIDE RECORDS SUMMARY | 2018-11-20 06:33 | XMS REPORT ---
Author Author Amberly Dubois Organization [employer] Address Unknown Phone Unavailable Care Team Providers Care Salesperson [employer] Name Role Phone Amberly Dubois CP Unavailable Allergies, Adverse Reactions, Alerts Substance Reaction Event Type Levothyroxine Sodium vomiting Drug Allergy Problems Problem Type Condition Code Onset Dates Condition Status Assessment Acute pain of right knee M25.561 Active Assessment Renal cell carcinoma of right kidney C64.1 Active Assessment Prediabetes R73.03 Active Problem Hyperlipidemia, unspecified hyperlipidemia type E78.5 Active Problem Prediabetes R73.03 Active Problem Essential hypertension I10 Active Assessment Essential hypertension I10 Active Assessment Hyperlipidemia, unspecified hyperlipidemia type E78.5 Active Problem Renal cell carcinoma of right kidney C64.1 Active Medications Medication Code System Code Instructions Start Date End Date Status Dosage Opdivo [facility] 71136457433 240 MG/24ML Intravenous once per month Active IV Carvedilol [facility] 88153439671 6.25 MG Orally twice a day (bid) Active 1 tablet Eliquis [facility] 09456766591 5 MG Orally twice a day (bid) Active as directed Amlodipine Besylate [facility] 09494012583 10 MG Oral Active TK 1 T PO QD NIFEdipine ER [facility] 46792070495 30 mg Orally Once a day Active 1 tablet on an empty stomach Atorvastatin Calcium [facility] 81780957992 40 mg Orally Once a day Active 1 tablet MetFORMIN HCl ER [facility] 32345944089 500 MG Oral Active TK 1 T PO QPM WITH DINNER Vital Signs Date/Time: Aug 23, 2018 BMI 35.11 Index Weight 192 lbs Height 62 in Cardiac Monitoring Heart Rate 85 /min Blood Pressure Diastolic 70 mm Hg Blood Pressure Systolic 134 mm Hg Results No Known Results Summary Purpose [employer] Submission
--- OUTSIDE RECORDS SUMMARY | 2018-11-20 06:34 | XMS REPORT | Summary of Care ---
Author Author [facility] Organization [facility] Address Unknown Phone Unavailable Encounter HQ Julita(FIN) [id number] Date(s): 01/29/18 - 01/29/18 [facility] [address] [place] [address]- Encounter Diagnosis Hematuria, gross (Discharge Diagnosis) - 01/29/18 Discharge Disposition: Home or Self Care Attending Physician: Chapis William MD Vital Signs 1 2 3 Most recent to oldest [Reference Range]: 98.0 DegF (01/29/18 11:33 AM) 98.0 DegF (01/29/18 8:52 AM) Temperature Oral [96.4-99.1 DegF] 123/85 mmHg (01/29/18 11:33 AM) 135/73 mmHg (01/29/18 8:52 AM) Blood Pressure [90-140/60-90 mmHg] 115 mmHg (01/29/18 10:20 AM) Systolic Blood Pressure [90-140 mmHg] 62 mmHg (01/29/18 10:20 AM) Diastolic Blood Pressure [60-90 mmHg] 8 BRMIN *LOW* (01/29/18 11:33 AM) 18 BRMIN (01/29/18 10:20 AM) 18 BRMIN (01/29/18 8:52 AM) Respiratory Rate [14-20 BRMIN] 68 bpm (01/29/18 11:33 AM) 70 bpm (01/29/18 10:20 AM) 80 bpm (01/29/18 8:52 AM) Peripheral Pulse Rate [60-100 bpm] Problem List No data available for this section Allergies, Adverse Reactions, Alerts Substance Reaction Severity Status levothyroxine Active Medications Bactrim DS 800 mg- 160 mg oral tablet 1 tab, PO, BID, for UTI, X 3 day, # 6 tab, 0 Refill(s) Start Date: 01/29/18 Stop Date: 02/01/18 Status: Ordered Results ELECTROLYTES Most recent to 1 oldest [Reference Range]: Sodium Lvl [135-145 141 mEq/L mEq/L] (01/29/18 9:41 AM) Potassium Lvl 4.7 mEq/L [3.5-5.1 mEq/L] (01/29/18 9:41 AM) Chloride Lvl [95-109 107 mEq/L mEq/L] (01/29/18 9:41 AM) CO2 [24-32 mEq/L] 24 mEq/L (01/29/18 9:41 AM) AGAP [10.0-20.0 14.7 mEq/L mEq/L] (01/29/18 9:41 AM) CHEM PANEL Most recent to 1 oldest [Reference Range]: Creatinine Lvl 1.10 mg/dL [0.50-1.40 mg/dL] (01/29/18 9:41 AM) eGFR 55 mL/min/1.73m2 1 *NA* (01/29/18 9:41 AM) BUN [7-22 mg/dL] 22 mg/dL (01/29/18 9:41 AM) B/C Ratio [6-25] 20 (01/29/18 9:41 AM) Glucose Lvl [70-99 120 mg/dL mg/dL] *HI* (01/29/18 9:41 AM) Total Protein 7.4 g/dL [6.4-8.4 g/dL] (01/29/18 9:41 AM) Albumin Lvl [3.5-5.0 3.7 g/dL g/dL] (01/29/18 9:41 AM) Globulin [2.7-4.2 3.7 g/dL g/dL] (01/29/18 9:41 AM) A/G Ratio [0.7-1.6] 1.0 (01/29/18 9:41 AM) Calcium Lvl 9.0 mg/dL [8.5-10.5 mg/dL] (01/29/18 9:41 AM) ALT [0-65 unit/L] 36 unit/L (01/29/18 9:41 AM) AST [0-37 unit/L] 22 unit/L (01/29/18 9:41 AM) Alk Phos [39-136 143 unit/L unit/L] *HI* (01/29/18 9:41 AM) Bili Total [0.2-1.3 0.3 mg/dL mg/dL] (01/29/18 9:41 AM) 1Result Comment: The eGFR is calculated using the [...] from the National Kidney Disease Education Program ( NKDEP) which additionally recommends that when the eGFR is used in patients with extremes of body mass index for purposes of drug dosing, the eGFR should be mul tiplied by the estimated BMI. URINE AND STOOL Most recent to 1 oldest [Reference Range]: UA Turbidity [Clear] Clear (01/29/18 10:20 AM) UA Color [Yellow] Red *ABN* (01/29/18 10:20 AM) UA pH [5.0-8.0] 6.0 (01/29/18 10:20 AM) UA Spec Grav 1.008 [<=1.030] (01/29/18 10:20 AM) UA Glucose [Negative 50 mg/dL mg/dL] *ABN* (01/29/18 10:20 AM) UA Blood [Negative] Moderate *ABN* (01/29/18 10:20 AM) UA Ketones [Negative Negative mg/dL mg/dL] *NA* (01/29/18 10:20 AM) UA Protein [Negative 100 mg/dL mg/dL] *ABN* (01/29/18 10:20 AM) UA Urobilinogen <=1.0 mg/dL [0.1-1.0 mg/dL] *NA* (01/29/18 10:20 AM) UA Bili [Negative] Negative *NA* (01/29/18 10:20 AM) UA Leuk Est Trace [Negative] *ABN* (01/29/18 10:20 AM) UA Nitrite Negative [Negative] (01/29/18 10:20 AM) UA WBC [0-5 /HPF] 182 /HPF *HI* (01/29/18 10:20 AM) UA RBC [0-2 /HPF] >182 /HPF *HI* (01/29/18 10:20 AM) UA Bacteria [None Few /HPF Seen /HPF] *NA* (01/29/18 10:20 AM) UA Sq Epi [Few /LPF] Occasional /LPF *NA* (01/29/18 10:20 AM) UA Mucus [None Seen Few /LPF /LPF] *NA* (01/29/18 10:20 AM) HEMATOLOGY Most recent to 1 oldest [Reference Range]: WBC [3.7-10.4 K/CMM] 6.2 K/CMM (01/29/18 9:41 AM) RBC [4.20-5.40 3.74 M/CMM M/CMM] *LOW* (01/29/18 9:41 AM) Hgb [12.0-16.0 g/dL] 11.1 g/dL *LOW* (01/29/18 9:41 AM) Hct [36.0-48.0 %] 33.6 % *LOW* (01/29/18 9:41 AM) MCV [80.0-98.0 fL] 89.9 fL (01/29/18 9:41 AM) MCH [27.0-31.0 pg] 29.8 pg (01/29/18 9:41 AM) MCHC [32.0-36.0 33.2 g/dL g/dL] (01/29/18 9:41 AM) RDW [11.5-14.5 %] 20.2 % *HI* (01/29/18 9:41 AM) MPV [7.4-10.4 fL] 8.0 fL (01/29/18 9:41 AM) Platelet [133-450 203 K/CMM K/CMM] (01/29/18 9:41 AM) Segs [45.0-75.0 %] 74.3 % (01/29/18 9:41 AM) Lymphocytes 20.6 % [20.0-40.0 %] (01/29/18 9:41 AM) Monocytes [2.0-12.0 4.3 % %] (01/29/18 9:41 AM) Eosinophils [0.0-4.0 0.6 % %] (01/29/18 9:41 AM) Basophils [0.0-1.0 0.2 % %] (01/29/18 9:41 AM) Segs-Bands # 4.6 K/CMM [1.5-8.1 K/CMM] (01/29/18 9:41 AM) Lymphocytes # 1.3 K/CMM [1.0-5.5 K/CMM] (01/29/18 9:41 AM) Monocytes # [0.0-0.8 0.3 K/CMM K/CMM] (01/29/18 9:41 AM) PT [12.0-14.7 14.7 seconds seconds] (01/29/18 9:41 AM) INR [0.85-1.17] 1.15 (01/29/18 9:41 AM) PTT [22.9-35.8 32.6 seconds seconds] (01/29/18 9:41 AM) Microbiology Reports TEST: Culture: Urine STATUS: Auth (Verified) BODY SITE: SOURCE: Urine, Clean Catch COLLECTED DATE/TIME: 01/29/18 10:20 AM FINAL REPORT No Growth Immunizations No data available for this section Procedures No data available for this section Social History Social History Type Response Smoking Status Never smoker; Exposure to Tobacco Smoke None; Cigarette Smoking Last 365 Days No; Reg Smoking Cessation Counseling No entered on: 01/29/18 Assessment and Plan No data available for this section
--- OUTSIDE RECORDS SUMMARY | 2018-11-20 06:34 | XMS REPORT | Summary of Care ---
Author Author [facility] Organization [facility] Address Unknown Phone Unavailable Encounter HQ Julita(FIN) [id number] Date(s): 01/21/18 - 01/21/18 [facility] [address] [place] [address]- [phone] Encounter Diagnosis Pseudohyperkalemia [place] (Discharge Diagnosis) - 01/21/18 Discharge Disposition: Home or Self Care Attending Physician: Charles Ly MD Vital Signs Most recent to 1 2 oldest [Reference Range]: Temperature Oral 98.3 DegF [96.4-99.1 DegF] (01/21/18 11:13 AM) Blood Pressure 178/77 mmHg 126/66 mmHg [90-140/60-90 mmHg] *HI* (01/21/18 11:13 AM) (01/21/18 4:24 PM) Respiratory Rate 15 BRMIN 18 BRMIN [14-20 BRMIN] (01/21/18 4:24 PM) (01/21/18 11:13 AM) Peripheral Pulse 72 bpm Rate [60-100 bpm] (01/21/18 11:13 AM) Problem List No data available for this section Allergies, Adverse Reactions, Alerts Substance Reaction Severity Status levothyroxine Active Medications No data available for this section Results ELECTROLYTES Most recent to 1 2 oldest [Reference Range]: Sodium Lvl [135-145 136 mEq/L 139 mEq/L mEq/L] (01/21/18 3:23 PM) (01/21/18 1:14 PM) Potassium Lvl 4.4 mEq/L 5.4 mEq/L [3.5-5.1 mEq/L] (01/21/18 3:23 PM) *HI* (01/21/18 1:14 PM) Chloride Lvl [95-109 105 mEq/L 106 mEq/L mEq/L] (01/21/18 3:23 PM) (01/21/18 1:14 PM) CO2 [24-32 mEq/L] 24 mEq/L 26 mEq/L (01/21/18 3:23 PM) (01/21/18 1:14 PM) AGAP [10.0-20.0 11.4 mEq/L 12.4 mEq/L mEq/L] (01/21/18 3:23 PM) (01/21/18 1:14 PM) CHEM PANEL Most recent to 1 2 oldest [Reference Range]: Creatinine Lvl 0.95 mg/dL 1.08 mg/dL [0.50-1.40 mg/dL] (01/21/18 3:23 PM) (01/21/18 1:14 PM) eGFR 66 mL/min/1.73m2 1 56 mL/min/1.73m2 2 *NA* *NA* (01/21/18 3:23 PM) (01/21/18 1:14 PM) BUN [7-22 mg/dL] 19 mg/dL 20 mg/dL (01/21/18 3:23 PM) (01/21/18 1:14 PM) Glucose Lvl [70-99 76 mg/dL 81 mg/dL mg/dL] (01/21/18 3:23 PM) (01/21/18 1:14 PM) Calcium Lvl 8.7 mg/dL 8.8 mg/dL [8.5-10.5 mg/dL] (01/21/18 3:23 PM) (01/21/18 1:14 PM) 1Result Comment: The eGFR is calculated using [...] be mul tiplied by the estimated BMI. 2Result Comment: The eGFR is calculated using the [...] be mul tiplied by the estimated BMI. HEMATOLOGY Most recent to 1 2 oldest [Reference Range]: WBC [3.7-10.4 K/CMM] 3.2 K/CMM *LOW* (01/21/18 1:14 PM) RBC [4.20-5.40 4.10 M/CMM M/CMM] *LOW* (01/21/18 1:14 PM) Hgb [12.0-16.0 g/dL] 12.3 g/dL (01/21/18 1:14 PM) Hct [36.0-48.0 %] 36.6 % (01/21/18 1:14 PM) MCV [80.0-98.0 fL] 89.3 fL (01/21/18 1:14 PM) MCH [27.0-31.0 pg] 29.9 pg (01/21/18 1:14 PM) MCHC [32.0-36.0 33.4 g/dL g/dL] (01/21/18 1:14 PM) RDW [11.5-14.5 %] 19.2 % *HI* (01/21/18 1:14 PM) MPV [7.4-10.4 fL] 8.0 fL (01/21/18 1:14 PM) Platelet [133-450 166 K/CMM K/CMM] (01/21/18 1:14 PM) Segs [45.0-75.0 %] 49.2 % (01/21/18 1:14 PM) Lymphocytes 41.5 % [20.0-40.0 %] *HI* (01/21/18 1:14 PM) Monocytes [2.0-12.0 5.3 % %] (01/21/18 1:14 PM) Eosinophils [0.0-4.0 3.2 % %] (01/21/18 1:14 PM) Basophils [0.0-1.0 0.8 % %] (01/21/18 1:14 PM) Segs-Bands # 1.6 K/CMM [1.5-8.1 K/CMM] (01/21/18 1:14 PM) Lymphocytes # 1.3 K/CMM [1.0-5.5 K/CMM] (01/21/18 1:14 PM) Monocytes # [0.0-0.8 0.2 K/CMM K/CMM] (01/21/18 1:14 PM) Eosinophils # 0.1 K/CMM [0.0-0.5 K/CMM] (01/21/18 1:14 PM) PT [12.0-14.7 14.5 seconds seconds] (01/21/18 1:14 PM) INR [0.85-1.17] 1.13 (01/21/18 1:14 PM) PTT [22.9-35.8 36.2 seconds seconds] *HI* (01/21/18 1:14 PM) Immunizations No data available for this section Procedures No data available for this section Social History Social History Type Response Smoking Status Never smoker; Exposure to Tobacco Smoke None; Cigarette Smoking Last 365 Days No; Reg Smoking Cessation Counseling No entered on: 01/16/18 Assessment and Plan No data available for this section
--- OUTSIDE RECORDS SUMMARY | 2018-11-20 06:34 | XMS REPORT | Summary of Care ---
Author Author [facility] Organization [facility] Address Unknown Phone Unavailable Encounter HQ Julita(FIN) [id number] Date(s): 01/16/18 - 01/16/18 [facility] [address] [place] [address]- Encounter Diagnosis Near syncope (Discharge Diagnosis) - 01/16/18 Discharge Disposition: Home or Self Care Attending Physician: Charles Ly MD Vital Signs 1 2 3 Most recent to oldest [Reference Range]: 157.48 cm (01/16/18 11:38 AM) Height 98.6 DegF (01/16/18 11:38 AM) Temperature Oral [96.4-99.1 DegF] 147/62 mmHg *HI* (01/16/18 3:57 PM) 123/55 mmHg (01/16/18 2:00 PM) 106/65 mmHg (01/16/18 11:38 AM) Blood Pressure [90-140/60-90 mmHg] 18 BRMIN (01/16/18 3:57 PM) 18 BRMIN (01/16/18 2:00 PM) 18 BRMIN (01/16/18 11:38 AM) Respiratory Rate [14-20 BRMIN] 63 bpm (01/16/18 3:57 PM) 63 bpm (01/16/18 11:38 AM) Peripheral Pulse Rate [60-100 bpm] 75.455 kg (01/16/18 11:38 AM) Weight 30.43 m2 (01/16/18 11:38 AM) Body Mass Index Problem List No data available for this section Allergies, Adverse Reactions, Alerts Substance Reaction Severity Status levothyroxine Active Medications Saline Flush 0.9% 10 mL, Route: IVP, Drug Form: INJ, Dosing Weight 75.455, kg, PRN, PRN Line Flush , Start date: 01/16/18 11:52:00 CDT, Duration: 30 day, Stop date: 02/15/18 11:51 :00 CDT Notes: (Same as: BD Posiflush) Start Date: 01/16/18 Stop Date: 01/16/18 Status: Discontinued Sodium Chloride 0.9% (Bolus) IV 1,000 mL, 1000 ml/hr, Infuse Over: 1 hr, Route: IV, 1,000, Drug form: INJ, ONCE, Priority: STAT, Dosing Weight 75.455 kg, Start date: 01/16/18 11:52:00 CDT, Stop date: 01/16/18 11:52:00 CDT Start Date: 01/16/18 Stop Date: 01/16/18 Status: Completed Results ELECTROLYTES Most recent to 1 oldest [Reference Range]: Sodium Lvl [135-145 137 mEq/L mEq/L] (01/16/18 12:14 PM) Potassium Lvl 4.3 mEq/L [3.5-5.1 mEq/L] (01/16/18 12:14 PM) Chloride Lvl [95-109 103 mEq/L mEq/L] (01/16/18 12:14 PM) CO2 [24-32 mEq/L] 22 mEq/L *LOW* (01/16/18 12:14 PM) AGAP [10.0-20.0 16.3 mEq/L mEq/L] (01/16/18 12:14 PM) CHEM PANEL Most recent to 1 oldest [Reference Range]: Creatinine Lvl 1.47 mg/dL [0.50-1.40 mg/dL] *HI* (01/16/18 12:14 PM) eGFR 39 mL/min/1.73m2 1 *NA* (01/16/18 12:14 PM) BUN [7-22 mg/dL] 27 mg/dL *HI* (01/16/18 12:14 PM) B/C Ratio [6-25] 18 (01/16/18 12:14 PM) Glucose Lvl [70-99 106 mg/dL mg/dL] *HI* (01/16/18 12:14 PM) Total Protein 7.7 g/dL [6.4-8.4 g/dL] (01/16/18 12:14 PM) Albumin Lvl [3.5-5.0 3.7 g/dL g/dL] (01/16/18 12:14 PM) Globulin [2.7-4.2 4.0 g/dL g/dL] (01/16/18 12:14 PM) A/G Ratio [0.7-1.6] 0.9 (01/16/18 12:14 PM) Calcium Lvl 8.8 mg/dL [8.5-10.5 mg/dL] (01/16/18 12:14 PM) ALT [0-65 unit/L] 148 unit/L *HI* (01/16/18 12:14 PM) AST [0-37 unit/L] 70 unit/L *HI* (01/16/18 12:14 PM) Alk Phos [39-136 279 unit/L unit/L] *HI* (01/16/18 12:14 PM) Bili Total [0.2-1.3 0.4 mg/dL mg/dL] (01/16/18 12:14 PM) 1Result Comment: The eGFR is calculated [...] be mul tiplied by the estimated BMI. CARDIAC ENZYMES Most recent to 1 oldest [Reference Range]: Total CK [12-191 57 unit/L unit/L] (01/16/18 12:14 PM) CK MB [0.5-3.6 <1.0 ng/mL ng/mL] (01/16/18 12:14 PM) CK MB Index <1.8 [0.0-2.5] (01/16/18 12:14 PM) Troponin-I <0.02 ng/mL [0.00-0.40 ng/mL] (01/16/18 12:14 PM) BNP [<=100 pg/mL] 113 pg/mL *HI* (01/16/18 12:14 PM) URINE AND STOOL Most recent to 1 oldest [Reference Range]: UA Turbidity [Clear] Clear (01/16/18 2:28 PM) UA Color [Yellow] Yellow *NA* (01/16/18 2:28 PM) UA pH [5.0-8.0] 5.0 (01/16/18 2:28 PM) UA Spec Grav 1.006 [<=1.030] (01/16/18 2:28 PM) UA Glucose [Negative Negative mg/dL mg/dL] *NA* (01/16/18 2:28 PM) UA Blood [Negative] Moderate *ABN* (01/16/18 2:28 PM) UA Ketones [Negative Negative mg/dL mg/dL] *NA* (01/16/18 2:28 PM) UA Protein [Negative Negative mg/dL mg/dL] (01/16/18 2:28 PM) UA Urobilinogen <=1.0 mg/dL [0.1-1.0 mg/dL] *NA* (01/16/18 2:28 PM) UA Bili [Negative] Negative *NA* (01/16/18 2:28 PM) UA Leuk Est Negative [Negative] (01/16/18 2:28 PM) UA Nitrite Negative [Negative] (01/16/18 2:28 PM) UA WBC [0-5 /HPF] 1 /HPF (01/16/18 2:28 PM) UA RBC [0-2 /HPF] 6 /HPF *HI* (01/16/18 2:28 PM) UA Bacteria [None Occasional /HPF Seen /HPF] *NA* (01/16/18 2:28 PM) UA Sq Epi None Seen *NA* (01/16/18 2:28 PM) UA Hyal Cast [0-2 3 /LPF /LPF] *HI* (01/16/18 2:28 PM) HEMATOLOGY Most recent to 1 oldest [Reference Range]: WBC [3.7-10.4 K/CMM] 2.8 K/CMM *LOW* (01/16/18 12:14 PM) RBC [4.20-5.40 4.21 M/CMM M/CMM] (01/16/18 12:14 PM) Hgb [12.0-16.0 g/dL] 12.2 g/dL (01/16/18 12:14 PM) Hct [36.0-48.0 %] 37.0 % (01/16/18 12:14 PM) MCV [80.0-98.0 fL] 87.8 fL (01/16/18 12:14 PM) MCH [27.0-31.0 pg] 29.0 pg (01/16/18 12:14 PM) MCHC [32.0-36.0 33.1 g/dL g/dL] (01/16/18 12:14 PM) RDW [11.5-14.5 %] 18.6 % *HI* (01/16/18 12:14 PM) MPV [7.4-10.4 fL] 8.9 fL (01/16/18 12:14 PM) Platelet [133-450 112 K/CMM K/CMM] *LOW* (01/16/18 12:14 PM) Segs [45.0-75.0 %] 61.9 % (01/16/18 12:14 PM) Lymphocytes 27.0 % [20.0-40.0 %] (01/16/18 12:14 PM) Monocytes [2.0-12.0 6.1 % %] (01/16/18 12:14 PM) Eosinophils [0.0-4.0 4.1 % %] *HI* (01/16/18 12:14 PM) Basophils [0.0-1.0 0.9 % %] (01/16/18 12:14 PM) Segs-Bands # 1.7 K/CMM [1.5-8.1 K/CMM] (01/16/18 12:14 PM) Lymphocytes # 0.8 K/CMM [1.0-5.5 K/CMM] *LOW* (01/16/18 12:14 PM) Monocytes # [0.0-0.8 0.2 K/CMM K/CMM] (01/16/18 12:14 PM) Eosinophils # 0.1 K/CMM [0.0-0.5 K/CMM] (01/16/18 12:14 PM) Immunizations No data available for this section Procedures No data available for this section Social History Social History Type Response Smoking Status Never smoker; Exposure to Tobacco Smoke None; Cigarette Smoking Last 365 Days No; Reg Smoking Cessation Counseling No entered on: 01/16/18 Assessment and Plan No data available for this section
--- OUTSIDE RECORDS SUMMARY | 2018-11-20 06:34 | XMS REPORT | Clinical Summary ---
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 Active apixaban (ELIQUIS) 5 mg Take 5 mg by 0 tablet mouth 2 times daily. Active metFORMIN (GLUCOPHAGE-XR) Take by mouth 0 500 mg ER extended daily. release tablet Active carvedilol (COREG) 6.25 Take 6.25 mg 0 mg tablet by mouth 2 times daily (with meals). Active valsartan-hydrochlorothia Take 1 tablet 90 tablet 1 zide (DIOVAN HCT) by mouth 8 160-12.5 mg daily. tabletIndications: Essential hypertension 11/11/2017 Discontinued Valsartan-Hydrochlorothia Take 1 tablet 0 zide 80-12.5 mg per by mouth tablet daily. 05/10/2018 tropicamide (MYDRIACYL) Instill 1 15 mL 0 0.5 % ophthalmic Drop in each 8 solutionIndications: Type eye daily as 2 diabetes mellitus with needed for up complication, without to 1 dose long-term current use of (for poor insulin retina scan image). Active Problems Problem Noted Date Essential hypertension 11/11/2017 Type 2 diabetes mellitus with complication, without long-term current use 11/11/2017 of insulin Renal cell cancer, right 11/11/2017 Lung mass 11/11/2017 Encounters Care Team Description Date Type Specialty Trinidad Cain MD Essential hypertension (Primary Dx); Type 2 diabetes mellitus with complication, without long-term current use of insulin; Renal cell cancer, right; Lung mass; Palpitation; Screen for colon cancer 11/11/2017 Office Visit Family Practice Trinidad Cain MD Essential hypertension; Palpitation 11/11/2017 Orders Only Family Practice after 09/25/2017 Family History Relation Name Status Comments Brother Alive 3 brother Father Dm, Heart, Kidney (Age 70+) Mother Brain Tumor Sister Alive 7 sisters Sister 2 sisters Social History Date Tobacco Use Types Packs/Day Years Used Never Smoker Smokeless Tobacco: Never Used Alcohol Use Drinks/Week oz/Week Comments No Sex Assigned at Date Recorded Not on file Industry Job Start Date Occupation Not on file Not on file Not on file Travel End Travel History Travel Start No recent travel history available. Last Filed Vital Signs Time Taken Vital Sign Reading 11/11/2017 1:43 PM CDT Blood Pressure 169/83 11/11/2017 1:43 PM CDT Pulse 77 11/11/2017 1:43 PM CDT Temperature 36.8 C (98.2 F) 11/11/2017 1:43 PM CDT Respiratory Rate 18 - Oxygen Saturation - - Inhaled Oxygen - Concentration 11/11/2017 1:43 PM CDT Weight 76.4 kg (168 lb 6.4 oz) 11/11/2017 1:43 PM CDT Height 160 cm (5' 3") 11/11/2017 1:43 PM CDT Body Mass Index 29.83 Plan of Treatment Health Maintenance Due Date Last Done Comments DM HGBA1C (Yearly) 1955 DM Retinal Exam (Yearly) 11/13/1975 Cervical Cancer Scrn (3 1978 Yrs) Breast Cancer Scrn 1997 (Yearly) IMM Influenza Seasonal 04/25/2018Apr to September (>/=19 yrs) Colorectal Cancer Scrn 11/11/2018 11/11/2017 Annual (FIT/FOBT) Age 50 to 75 DM Foot Exam (Yearly) 11/11/2018 11/11/2017 Procedures Comments Procedure Name Priority Date/Time Associated Diagnosis DIABETIC FOOT EXAM Routine 11/11/2017 Type 2 diabetes mellitus 4:14 PM CDT with complication, without long-term current use of insulin OCCULT BLOOD ICT Routine 11/11/2017 4:00 PM CDT after 09/25/2017 Results * DIABETIC FOOT EXAM (11/11/2017 4:14 PM CDT) Narrative Performed At Trinidad Cain MD 11/11/20179:29 PM Diabetic Foot Exam was performed at 11/11/2017 9:25 PM.Right foot sensation is normal, right foot pulses are normal, right foot appearance is normal.Left foot sensation is normal,left foot pulses are normal, left foot appearance is normal. * OCCULT BLOOD ICT (11/11/2017 4:00 PM CDT) Occult Blood Negative [facility] I[facility] Performing Organization Address City/State/Zipcode Phone Number [facility] after 09/25/2017 Insurance Type Payer Benefit Subscriber ID Effective Phone Address Plan / Dates Group COMMERCIAL GENERIC COMMERCIAL xxxxxxxxxx 2017 GENERIC -Present [employer] [facility] SELF-PAY [facility] PLAN xxxxxxx 2017-3 [address] [address] [place] [address]
--- OUTSIDE RECORDS SUMMARY | 2018-11-20 06:35 | XMS REPORT ---
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 Allergies, Adverse Reactions, Alerts This patient has no known allergies or adverse reactions. Medications This patient has no known medications. Encounters Start Date/Time End Date/Time Encounter Type Admission Type Attending Clinicians Care Facility Care Department Encounter ID 2017-12-02 00:00:00 2017-12-02 00:00:00 Outpatient [facility] [id number] 2017-12-02 00:00:00 2017-12-02 00:00:00 Outpatient [facility] [id number] 2017-11-18 00:00:00 2017-11-18 00:00:00 Outpatient [facility] [id number] 2017-11-11 13:43:16 2017-11-11 13:43:16 Outpatient [facility] [id number] Results Test Description Test Time Test Comments Text Results Atomic Results Result Comments TISSUE EXAM 2018-10-20 10:57:00 Surgical Pathology Report Case: [id number] Authorizing Provider: Lianet Hearn MD Collected: 10/17/2018 1426 Ord ering Location: [facility] Radiology Angio Received: 10/17/2018 1524 Pathologist: Eddie Zuniga MD Specimen: Biopsy, Liver LIVER, MASS, BIOPSY: - CARCINOMA WITH EOSINOPHILIC AND CLEAR CELL FEATURES, COMPATIBLE WITH METASTASIS FROM PATIENT'S RENAL PRIMARY (SEE COMMENT) Signing Pathologist Direct Phone Line: [phone] signed by Eddie Zuniga MD on 10/20/2018 at 10:57 AMSections show sheets of malignant cells with abundant eosinophilic and clear cell features. Small pieces of benign liver parenchyma are noted in the background. By immunohistochemistry, the tumor cells are positive for PAX8, while predominantly negative for arginase and HepPar. MOC31 shows weak focal staining in tumor cells. In light of patient's history of renal cell carcinoma, the findings are supportive of a diagnosis of metastatic carcinoma of renal origin. 96271, 29043, 21601 x 3Native liver mass 4.8 x 4.4 x 5.3 cm, malignant neoplasm of liverNative liver biopsyThe specimen is received in a formalin-filled container labeled with the patient's information and labeled "[place] liver mass biopsy" and consists of multiple stringy fragments of smalls cores ranging from 0.1 to 0.5 cm, submitted entirely in A1. CG/ew The interpretation of this case included the use of immunohistochemistry or special stains. Please see the immunohistochemistry results in the COMMENT section. Immunohistochemistry technical testing was performed at [facility], Pathology Laboratory where it was developed and [...] to perform high complexity clinical laboratory testing. U/S, BIOPSY, LIVER 2018-10-17 19:32:00 Reason for Exam:->C78.7 FINAL REPORT PROCEDURE: Ultrasound-guided core biopsy of [...] of a right inferior hepatic lobe mass. Day d: Nilson Nielson MDReport Verified Date/Time: 10/17/2018 19:32:11 Reading Location: [address] Ultrasound Reading Room , [facility] CATH CENTRAL INS W/PORT C 2018-10-17 18:04:00 FINAL REPORT HISTORY: Hepatocellular carcinoma PROCEDURE: Following [...] internal jugular chest port. Fluoroscopy time: 1.4 minutesEstimated dose in (Ka,r): 10.7 mGy Signed: Nupur Whaley MDReport Verified Date/Time: 10/17/2018 18:04:41 Reading Location: [facility] P048 Angio Body Reading Room /APTT 2018-10-17 07:36:00 PROTIME (BEAKER) (test rcyf=868) 13.7 seconds 11.7-14.7 INR (BEAKER) (test gziw=355) 1.0 <=5.9 PARTIAL THROMBOPLASTIN TIME (BEAKER) (test asqp=736) 31.0 seconds 22.5-36.0 RECOMMENDED COUMADIN/WARFARIN INR THERAPY RANGESSTANDARD DOSE: 2.0 - 3.0 Inclu gloria: PROPHYLAXIS for venous thrombosis, systemic embolization; TREATMENT for gilbert ous thrombosis and/or pulmonary embolus.HIGH RISK: Target INR is 2.5-3.5 for pat ients with mechanical heart valves.CBC W/PLT COUNT & AUTO [id number] 07:26:00* Test Item Value Reference Range Comments WHITE BLOOD CELL COUNT (BEAKER) (test cinc=038) 7.5 K/ L 3.5-10.5 RED BLOOD CELL COUNT (BEAKER) (test aptb=109) 3.75 M/ L 3.93-5.22 HEMOGLOBIN (BEAKER) (test nlhq=761) 11.0 GM/DL 11.2-15.7 HEMATOCRIT (BEAKER) (test xtfo=746) 36.1 % 34.1-44.9 MEAN CORPUSCULAR VOLUME (BEAKER) (test cmyr=813) 96.3 fL 79.4-94.8 MEAN CORPUSCULAR HEMOGLOBIN (BEAKER) (test dugr=351) 29.3 pg 25.6-32.2 MEAN CORPUSCULAR HEMOGLOBIN CONC (BEAKER) (test lwsl=089) 30.5 GM/DL 32.2-35.5 RED CELL DISTRIBUTION WIDTH (BEAKER) (test snjj=737) 14.1 % 11.7-14.4 PLATELET COUNT (BEAKER) (test amex=123) 229 K/CU MM 150-450 MEAN PLATELET VOLUME (BEAKER) (test ukci=992) 11.3 fL 9.4-12.3 NUCLEATED RED BLOOD CELLS (BEAKER) (test ehqm=515) 0 /100 WBC 0-0 NEUTROPHILS RELATIVE PERCENT (BEAKER) (test euth=284) 71 % LYMPHOCYTES RELATIVE PERCENT (BEAKER) (test qvca=498) 22 % MONOCYTES RELATIVE PERCENT (BEAKER) (test qnnp=343) 5 % EOSINOPHILS RELATIVE PERCENT (BEAKER) (test sxvx=518) 1 % BASOPHILS RELATIVE PERCENT (BEAKER) (test garc=663) 1 % NEUTROPHILS ABSOLUTE COUNT (BEAKER) (test cedp=867) 5.35 K/ L 1.56-6.13 LYMPHOCYTES ABSOLUTE COUNT (BEAKER) (test tsgx=166) 1.66 K/ L 1.18-3.74 MONOCYTES ABSOLUTE COUNT (BEAKER) (test rrrs=734) 0.36 K/ L 0.24-0.36 EOSINOPHILS ABSOLUTE COUNT (BEAKER) (test rrsu=084) 0.08 K/ L 0.04-0.36 BASOPHILS ABSOLUTE COUNT (BEAKER) (test ljtn=458) 0.05 K/ L 0.01-0.08 IMMATURE GRANULOCYTES-RELATIVE PERCENT (BEAKER) (test khjn=2783) 0 % 0-1 SCR MAMM BILATERAL CONNOR CAD [id number] 15:02:22 - SCR MAMM BILATERAL CONNOR CAD DIGITALBILATERAL DIGITAL SCREENING MAMMOGRAM 3D/2D WITH CAD: 10/04/2018CLINICAL: Asymptomatic. Digital breast tomosynthesis was performed in addition to routine CC and MLO views. Current mammographic images were evaluated by either a [employer] M-Vu or a [employer] ImageChecker CAD (computer aided detection system). Comparison is made to exams dated 05/21/2017 mammogram, 11/01/2014 mammogram, 09/01/2012 mammogram, and 04/01/2011 mammogram - [facility]-. There are scattered fibroglandular tissues in both breasts. There are benign calcifications in both breasts. No suspicious mass, architectural distortion, malignant type calcification, or lymph node abnormality detected. B reast architecture is stable compared to prior exams.IMPRESSION: BENIGNThere is no mammographic evidence of malignancy. Resume annual screening mammography in o ne year. Based on this patient's reported personal and/or family history, consu ltation with Genetic Counseling (Italia Ryder, Certified Genetic Counselor, ) may be helpful to determine her lifetime risk for breast cancer and to make recommendations for future breast cancer screening. The [place] [employer] [place] [employer] recommends annual screening breast MRI in addition to mammography fo r women with a lifetime risk of breast cancer greater than 20%.Benjamin polanco M.D. ss/:10/04/2018 15:02:22 Internet Sourcer: Julius HERNÁNDEZ, [facility]-FWletter sent: BIRADS 1-2 Normal Mammogram BI-RADS: [address], [id number] 09:47:00FINAL REPORT EXAM: CT Chest, Abdomen and Pelvis WITH contrast INDICATION: Renal cell carcinoma C64.1 COMPARISON: May 09, 2018TECHNIQUE: Chest, abdomen and pelvis were scanned utilizing [...] TUBES: None LUNGS AND AIRWAYS: Right lung nodules:*Right middle lobe nodule 1.1 cm image 60, stable*Right lower lobe nodule 0.8 cm image 80, stable PLEURA: The pleural spaces are clear. HEART AND MEDIASTINUM: The thyroid gland is normal. No mediastinal, hilar or axillary lymphadenopathy. The heart is normal in size. There is no pericardial effusion. HEPATOBILIARY: Hepatic lesions: The phase of the contrast currently is in the venous phase and in the prior scan more arterial.*Right hepatic lobe 2.3 cm lesion image 46, previously 1.4 cm*Right hepatic lobe 5 cm lesion image 59, previously 4.9 cm*Left hepatic lobe 1.2 cm lesion image 46, previously 0.8 cm*Additional subcentimeter scattered lesions. GALLBLADDER: No radio-opaque stones or sludge. No wall thickening. SPLEEN: No splenomegaly. PANCREAS: No focal masses or ductal dilatation. ADRENALS: Right adrenal gland not well visualized. KIDNEYS/URETERS: Right nephrectomy with extensive postsurgical clips. Left kidney normal. No cystic or solid mass lesions. No stones. GI TRACT: No abnormal distention, wall thickening, or evidence of bowel obstructio n. Appendix is normal. PELVIC ORGANS/BLADDER: Unremarkable. LYMPH NODES: N o lymphadenopathy. VESSELS: Unremarkable. PERITONEUM / RETROPERITONEUM: No free air or fluid. BONES: Unremarkable. SOFT TISSUES: Unremarkable. IMPRE SSION: 1.Right nephrectomy. Increase in size of the hepatic lobe lesions and sta ble size of pulmonary lesions. Signed: Aries Suh MDReport Verified Date/Ti me: 09/19/2018 09:47:22 Electronically signed by: Aries Suh on 0 09/19/2018 09:[address], CHEST, WITH IV [id number] 09:47:00FINAL REPORT EXAM: CT Chest, Abdomen and Pelvis WITH contrast INDICATION: Renal cell carcinoma C64.1 COMPARISON: May 09, 2018TECHNIQUE: Chest, abdomen and pelvis were scanned utilizing [...] the Radiation Protocol Committee (RPC).Dose modulation, iterative reconstructio n, and/or weight based adjustment of the mA/kV was utilized to reduce the radiat ion dose to as low as reasonably achievable. FINDINGS: LINES and TUBES: None MCKENZIE GS AND AIRWAYS: Right lung nodules:*Right middle lobe nodule 1.1 cm image 60, stable*Right lower lobe nodule 0.8 cm image 80, stable PLEURA: The pleural spaces are clear. HEART AND MEDIASTINUM: The thyroid gland is normal. No medias tinal, hilar or axillary lymphadenopathy. The heart is normal in size. There is no pericardial effusion. HEPATOBILIARY: Hepatic lesions: The phase of the contrast currently is in the venous phase and in the prior scan more arterial.*R ight hepatic lobe 2.3 cm lesion image 46, previously 1.4 cm*Right hepatic lobe 5 cm lesion image 59, previously 4.9 cm*Left hepatic lobe 1.2 cm lesion image 46, previously 0.8 cm*Additional subcentimeter scattered lesions. GALLBLADDER: No r adio-opaque stones or sludge. No wall thickening. SPLEEN: No splenomegaly. JOSEPH CREAS: No focal masses or ductal dilatation. ADRENALS: Right adrenal gland not well visualized. KIDNEYS/URETERS: Right nephrectomy with extensive postsurg ical clips. Left kidney normal. No cystic or solid mass lesions. No stones. GI TRACT: No abnormal distention, wall thickening, or evidence of bowel obstructio n. Appendix is normal. PELVIC ORGANS/BLADDER: Unremarkable. LYMPH NODES: N o lymphadenopathy. VESSELS: Unremarkable. PERITONEUM / RETROPERITONEUM: No free air or fluid. BONES: Unremarkable. SOFT TISSUES: Unremarkable. IMPRE SSION: 1.Right nephrectomy. Increase in size of the hepatic lobe lesions and sta ble size of pulmonary lesions. Signed: Aries Suh MDReport Verified Date/Ti me: 09/19/2018 09:47:22 Electronically signed by: Aries Suh on 0 09/19/2018 09:47 AM [id number] 07:06:00* Test Item Value Reference Range Comments POC-CREATININE (BEAKER) (test ublh=9304) 1.1 mg/dL 0.6-1.3 TESTED AT [facility] [address] [address] POC-EGFR (BEAKER) (test kezw=9369) 51 mL/min/1.73M2 POCT-GLUCOSE [id number] 12:10:00* Test Item Value Reference Range Comments POC-GLUCOSE METER (BEAKER) (test qugk=0658) 120 mg/dL 70-110 TESTED AT [facility] [address] [facility] [address] POCT-GLUCOSE [id number] 07:39:00* Test Item Value Reference Range Comments POC-GLUCOSE METER (BEAKER) (test drtb=6019) 112 mg/dL 70-110 TESTED AT [facility] [address] [facility] [address] [id number] 07:12:00* Test Item Value Reference Range Comments PHOSPHORUS (BEAKER) (test wwid=757) 2.5 mg/dL 2.3-4.7 [id number] 07:12:00* Test Item Value Reference Range Comments MAGNESIUM (BEAKER) (test ztsw=886) 2.0 mg/dL 1.6-2.6 BASIC METABOLIC [id number] 07:12:00* Test Item Value Reference Range Comments SODIUM (BEAKER) (test tqgn=806) 136 meq/L 136-145 POTASSIUM (BEAKER) (test ydpa=260) 3.9 meq/L 3.5-5.1 CHLORIDE (BEAKER) (test cnhq=559) 105 meq/L 98-107 CO2 (BEAKER) (test kvio=118) 23 meq/L 22-29 BLOOD UREA NITROGEN (BEAKER) (test fqsf=766) 9 mg/dL 7-21 CREATININE (BEAKER) (test muzq=812) 0.71 mg/dL 0.57-1.25 GLUCOSE RANDOM (BEAKER) (test senv=790) 81 mg/dL 70-105 CALCIUM (BEAKER) (test jljq=242) 8.3 mg/dL 8.4-10.2 EGFR (BEAKER) (test vkfl=1322) 84 mL/min/1.73 sq m ESTIMATED GFR IS NOT ACCURATE CREATININE CLEARANCE IN PREDICTING GLOMERULAR FILTRATION RATE. ESTIMATED GFR IS NOT APPLICABLE FOR DIALYSIS PATIENTS. PROTHROMBIN TIME/[id number] 06:45:00* Test Item Value Reference Range Comments PROTIME (BEAKER) (test bbxl=475) 17.9 seconds 11.7-14.7 INR (BEAKER) (test dkwm=172) 1.5 <=5.9 RECOMMENDED COUMADIN/WARFARIN INR THERAPY RANGESSTANDARD DOSE: 2.0 - 3.0 Inclu gloria: PROPHYLAXIS for venous thrombosis, systemic embolization; TREATMENT for gilbert ous thrombosis and/or pulmonary embolus.HIGH RISK: Target INR is 2.5-3.5 for pat ients with mechanical heart valves.[id number] 06:45:00* Test Item Value Reference Range Comments PARTIAL THROMBOPLASTIN TIME (BEAKER) (test zrid=852) 28.5 seconds 22.5-36.0 CBC (HEMOGRAM ONLY)2017-10-07 06:35:00* Test Item Value Reference Range Comments WHITE BLOOD CELL COUNT (BEAKER) (test vrxm=511) 11.8 K/ L 3.5-10.5 RED BLOOD CELL COUNT (BEAKER) (test ovml=541) 3.52 M/ L 3.93-5.22 HEMOGLOBIN (BEAKER) (test zsrc=478) 10.1 GM/DL 11.2-15.7 HEMATOCRIT (BEAKER) (test zjpw=126) 32.5 % 34.1-44.9 MEAN CORPUSCULAR VOLUME (BEAKER) (test duyl=804) 92.3 fL 79.4-94.8 MEAN CORPUSCULAR HEMOGLOBIN (BEAKER) (test sncu=262) 28.7 pg 25.6-32.2 MEAN CORPUSCULAR HEMOGLOBIN CONC (BEAKER) (test ufyx=378) 31.1 GM/DL 32.2-35.5 RED CELL DISTRIBUTION WIDTH (BEAKER) (test iwiw=824) 15.5 % 11.7-14.4 PLATELET COUNT (BEAKER) (test yjvb=252) 340 K/CU MM 150-450 MEAN PLATELET VOLUME (BEAKER) (test bsuy=551) 10.4 fL 9.4-12.3 NUCLEATED RED BLOOD CELLS (BEAKER) (test gijl=359) 0 /100 WBC 0-0 POCT-GLUCOSE [id number] 21:01:00* Test Item Value Reference Range Comments POC-GLUCOSE METER (BEAKER) (test cknq=1707) 137 mg/dL 70-110 TESTED AT [address] [address] POCT-GLUCOSE [id number] 17:10:00* Test Item Value Reference Range Comments POC-GLUCOSE METER (BEAKER) (test wxfs=4105) 134 mg/dL 70-110 TESTED AT [address] [address] POCT-GLUCOSE [id number] 12:17:00* Test Item Value Reference Range Comments POC-GLUCOSE METER (BEAKER) (test elbc=5853) 128 mg/dL 70-110 TESTED AT [address] [address] TISSUE [id number] 11:27:00Surgical Pathology Report Case: [id number] Authorizing Provider: Ming Rubio MD Collected: 09/26/2017 1055 Ordering Location: [address] Received: 09/27/2017 0816 Service Pathologist: Chelo Azar MD Specimens: A) - Lymph Node, INTRA AORTA LYMPH NODE B) - Lymph Node, Paracaval Lymph Node C) - Kidney, Right, Right Radical Nephrectomy D) - Soft Tissue, Other, Vena Cava with Thrombus E) - Soft Tissue, Other, Proximal Thrombus Margin F) - Soft Tissue, Other, Priximal Vena Cava Margin A. LYMPH NODE, INTRA AORTAL, EXCISION: - THREE LYMPH NODES, NEGATIVE FOR MALIGNANCY (0/3)B. LYMPH NODE, PARACAVAL, EXCISION: - TWO LYMPH NODES, NEGATIVE FOR MALIGNANCY (0/2)C. KIDNEY, RIGHT, RADICAL NEPHRECTOMY: - CLEAR CELL RENAL CELL CARCINOMA, RICHARD NUCLEAR GRADE 3 - TUMOR MEASURES 9.5 X 9.0 X 3.5 CM - TUMOR EXTENDS INTO THE RENAL VEIN FORMING TUMOR THROMBUS - NO DEFINITE INVASION INTO THE RENAL SINUS FAT OR PERINEPHRIC ADIPOSE TISSUE - RENAL VEIN MARGIN, POSITIVE FOR CARCINOMA - URETERAL AND RENAL ARTERY MARGINS, NEGATIVE FOR CARCINOMA - ADRENAL GLAND, UNINVOLVED BY MALIGNANCY - UNINVOLVED KIDNEY WITH FOCAL GLOBAL GLOMERULOSCLEROSIS AND CHRONIC TUBULOINTERSTITIAL NEPHRITIS - PATHOLOGIC STAGING: rP3vQ3ArN. SOFT TISSUE, VENACAVA WITH THROMBUS, EXCISION: - RENAL CELL CARCINOMA FORMING INTRAVASCULAR TUMOR THROMBUS - TUMOR EXTENDS TO BOTH END MARGINS AND THE INKED OUTER SURFACEE. SOFT TISSUE, PROXIMAL THROMBUS MARGIN, EXCISION: - SMALL CLUSTER OF RENAL CELL CARCINOMA IN A BACKGROUND OF BLOOD CLOTF. SOFT TISSUE, PROXIMAL VENACAVA MARGIN, EXCISION: - SEGMENT OF VESSEL AND BLOOD CLOT, NEGATIVE FOR MALIGNANCY Signing Pathologist Direct Phone Line: [phone] signed by Chelo Azar MD on 10/06/2017 at 11:27 [facility].The tumor closely approaches the renal sinus fat, however no definite invasion is identified. Immunostain for calretinin fails to identify any adrenal tissue in the tumor thrombus adjacent to adrenal gland. F. Immunostain for PAX8 highlights few inflammatory cells, however no definite tu mor cells are seen, supporting the above diagnosis.KIDNEY: Nephrectomy (Kidney Res - All Specimens)SPECIMEN Procedure: Radical nephrectomy Specimen Lat erality: Right TUMOR Tumor Site: Upper pole Tumor Site: Middle Tumor Site: Lower pole Histologic Type: Clear cell renal cell carcinoma Histologic Grade (WHO / ISUP Grade): G3: Nucleoli conspicuous and eosinop hilic at 100x magnification Tumor Size: Greatest dimension in Centimeters (cm): 9.5 Centimeters (cm) Additional Dimension in Centimeters (cm): 9 Ce ntimeters (cm) Additional Dimension in Centimeters (cm): 3 Centimeters (c m) Tumor Focality: Unifocal Tumor Extension: Tumor extension into m ajor vein (renal vein or its segmental branches, inferior vena cava) Sarcom atoid Features: Not identified Rhabdoid Features: Not identified Tumor Necrosis: Not identified Lymphovascular Invasion: Present MARCELLA INS Margins: Cannot be assessed: Specimen E is positive, while specimen F i s negative for malignancy. Clinical correlation is required to determine which o f these margins represents the final margin. LYMPH NODES Regional Lymph Nodes: Number of Lymph Nodes Involved: Number of Lymph Nodes Involve d: 0 Number of Lymph Nodes Examined: 5 PATHOLOGIC STAGE CLASSIFICATIO N (pTNM, AJCC 8th Edition) Primary Tumor (pT): pT3b Regional Lymph Nodes (pN): pN0 ADDITIONAL FINDINGS Pathologic Findings in Nonneoplastic Kidney: Glomerular disease: focal global glomerulosclerosis [id number] Carcinoma of right kidneyA. Intra-aortal lymph node; B. Paracaval lymph node; C. Right radical nephrectomy; D. Vena cava with thrombus; E. Proximal thrombus mar gin; F. Proximal vena cava marginThe specimen is received in six containers of f DrFirstin all labeled with the patient's information.Part A labeled "intra-aorta l ymph node" consists of adipose tissue measuring 3 x .5 x 0.8 cm yielding three l ymph nodes ranging from 0.3 to 1.4 cm. Lymph nodes are entirely submitted as fol lows. A1, two lymph nodes; A2, one lymph node bisected.Part B labeled "paracaval lymph node" consists of two smalls lymph nodes measuring up to 1.2 cm. Both lymph nodes are bisected, submitted B1 and B2. Part C labeled "right radical nephrecto my" consists of 1,161 gm radical nephrectomy measuring 22 x 10.5 x 7 cm with kid westley without perinephric fat measuring 13.5 x 10 x 5 cm and ureter measuring 7 cm in length x 0.4 cm in diameter. The adrenal gland is found measuring 6.5 x 2 x 1.8 cm. Kidney is bivalved to show a well-defined thinly encapsulated smalls-orange hemorrhagic mass with cystic component encompassing approximately 90% of the ki dney measuring 9.5 x 9 cm. The third measurement is 3.5 cm. The mass grossly jacques ears to bulge the cortex but does not infiltrate through it into the surrounding perirenal fat. The mass involves pelvicalyceal system pushes up through the jacky al vein up to the margin. The adrenal gland is serially sectioned and shows a ta n hemorrhagic nodule at one end and also part of the tumor thrombus abutting the adrenal gland, measuring up to 2 x 0.5 x 0.5 cm. Remainder of the adrenal gland is unremarkable. Mass does grossly appear to be involved with the renal sinus. The ureter is grossly unremarkable. Adipose tissue yields no lymph node tissue. Section code: C1, vascular margin and ureteral margin; C2 and C3, mass kidney pa renchyma and Gerota's fascia perpendicular sections; C4 to C6, mass and renal si nus; C7 through C8, additional random sections of mass and kidney parenchyma; C9 , tumor abutting adrenal gland; C10, adrenal gland, uninvolved, equal opportunity representative C 11, tumor with perisinus fat; C12, uninvolved kidney parenchyma; C13, additional random sections of vascular tissue with thrombus. Part D labeled "vena cava with thrombus" consists of a large mottled smalls-orange dusky mass measuring 12 x 4 x 4 cm infiltrating attached vessels measuring 6.5 cm in length x 3 cm in diameter. Proximal and distal have not been oriented. The specimen is entirely inked black and serially sectioned showing the mass to completely occlude the vessels. S ection code: D1, one full-thickness section of thrombus and vessel; D2 and D3, o ne continuous section of vessel and thrombus; D4 through D7, entire segment of t hrombus and vessel; D8, random section of mass without vessel. D9, one end of th e specimen; D10 through D14, opposite end of the specimen serially sectioned. Pa rt E labeled "proximal thrombus margin" consists of an irregular unoriented segm ent of hemorrhagic tissue measuring 1.5 x 1 x 1 cm. Tissue is sectioned, submitt ed entirely E and E2. Part F labeled "proximal vena cava margin" consists of a v essel measuring 2.5 cm in diameter x 0.8 cm in length with separate hemorrhagic tissue measuring 1.5 x 1 x 0.5 cm. Vessel is entirely submitted F1. Hemorrhagic tissue is submitted F2. CG/pl Performed.POCT-GLUCOSE [id number] 07:21:00* Test Item Value Reference Range Comments POC-GLUCOSE METER (BEAKER) (test htep=8724) 87 mg/dL 70-110 TESTED AT [facility] [address] [place] [address] BASIC METABOLIC [id number] 06:12:00* Test Item Value Reference Range Comments SODIUM (BEAKER) (test vern=781) 135 meq/L 136-145 POTASSIUM (BEAKER) (test mgcz=383) 3.7 meq/L 3.5-5.1 CHLORIDE (BEAKER) (test xkqa=024) 106 meq/L 98-107 CO2 (BEAKER) (test zkwf=305) 24 meq/L 22-29 BLOOD UREA NITROGEN (BEAKER) (test iyrw=204) 10 mg/dL 7-21 CREATININE (BEAKER) (test fnsg=672) 0.72 mg/dL 0.57-1.25 GLUCOSE RANDOM (BEAKER) (test nppr=139) 79 mg/dL 70-105 CALCIUM (BEAKER) (test tger=011) 7.6 mg/dL 8.4-10.2 EGFR (BEAKER) (test xiuv=6538) 83 mL/min/1.73 sq m ESTIMATED GFR IS NOT ACCURATE CREATININE CLEARANCE IN PREDICTING GLOMERULAR FILTRATION RATE. ESTIMATED GFR IS NOT APPLICABLE FOR DIALYSIS PATIENTS. [id number] 06:04:00* Test Item Value Reference Range Comments PHOSPHORUS (BEAKER) (test wnid=800) 2.7 mg/dL 2.3-4.7 [id number] 06:04:00* Test Item Value Reference Range Comments MAGNESIUM (BEAKER) (test upim=385) 2.0 mg/dL 1.6-2.6 [id number] 05:34:00* Test Item Value Reference Range Comments PARTIAL THROMBOPLASTIN TIME (BEAKER) (test rsqn=029) 35.3 seconds 22.5-36.0 PROTHROMBIN TIME/[id number] 05:33:00* Test Item Value Reference Range Comments PROTIME (BEAKER) (test cydr=316) 22.3 seconds 11.7-14.7 INR (BEAKER) (test ffkg=928) 2.0 <=5.9 RECOMMENDED COUMADIN/WARFARIN INR THERAPY RANGESSTANDARD DOSE: 2.0 - 3.0 Inclu gloria: PROPHYLAXIS for venous thrombosis, systemic embolization; TREATMENT for gilbert ous thrombosis and/or pulmonary embolus.HIGH RISK: Target INR is 2.5-3.5 for pat ients with mechanical heart valves.CBC (HEMOGRAM ONLY)2017-10-06 05:23:00* Test Item Value Reference Range Comments WHITE BLOOD CELL COUNT (BEAKER) (test mwcc=544) 7.9 K/ L 3.5-10.5 RED BLOOD CELL COUNT (BEAKER) (test cllv=842) 3.15 M/ L 3.93-5.22 HEMOGLOBIN (BEAKER) (test fsxe=042) 9.2 GM/DL 11.2-15.7 HEMATOCRIT (BEAKER) (test jwtr=071) 28.9 % 34.1-44.9 MEAN CORPUSCULAR VOLUME (BEAKER) (test yfia=148) 91.7 fL 79.4-94.8 MEAN CORPUSCULAR HEMOGLOBIN (BEAKER) (test ootw=941) 29.2 pg 25.6-32.2 MEAN CORPUSCULAR HEMOGLOBIN CONC (BEAKER) (test okdo=520) 31.8 GM/DL 32.2-35.5 RED CELL DISTRIBUTION WIDTH (BEAKER) (test eoou=627) 15.7 % 11.7-14.4 PLATELET COUNT (BEAKER) (test syzs=999) 287 K/CU MM 150-450 MEAN PLATELET VOLUME (BEAKER) (test uxgb=006) 10.2 fL 9.4-12.3 NUCLEATED RED BLOOD CELLS (BEAKER) (test nmtt=958) 0 /100 WBC 0-0 POCT-GLUCOSE [id number] 21:08:00* Test Item Value Reference Range Comments POC-GLUCOSE METER (BEAKER) (test ntmq=8977) 108 mg/dL 70-110 TESTED AT [facility] [address] [facility] [address] POCT-GLUCOSE [id number] 16:53:00* Test Item Value Reference Range Comments POC-GLUCOSE METER (BEAKER) (test qkyb=9370) 97 mg/dL 70-110 TESTED AT [facility] [address] [facility] [address] POCT-GLUCOSE [id number] 12:31:00* Test Item Value Reference Range Comments POC-GLUCOSE METER (BEAKER) (test fydk=5175) 111 mg/dL 70-110 TESTED AT [facility] [address] [facility] [address] CALCIUM, [id number] 09:16:00* Test Item Value Reference Range Comments CALCIUM IONIZED (BEAKER) (test gmjb=645) 1.07 mmol/L 1.12-1.27 PH, BLOOD (BEAKER) (test xguk=2981) 7.32 POCT-GLUCOSE [id number] 08:26:00* Test Item Value Reference Range Comments POC-GLUCOSE METER (BEAKER) (test ukir=6703) 102 mg/dL 70-110 TESTED AT [facility] [address] [facility] [address] [id number] 05:34:00* Test Item Value Reference Range Comments PARTIAL THROMBOPLASTIN TIME (BEAKER) (test rbcq=691) 30.7 seconds 22.5-36.0 PROTHROMBIN TIME/[id number] 05:33:00* Test Item Value Reference Range Comments PROTIME (BEAKER) (test lxke=207) 19.1 seconds 11.7-14.7 INR (BEAKER) (test lmbo=084) 1.6 <=5.9 RECOMMENDED COUMADIN/WARFARIN INR THERAPY RANGESSTANDARD DOSE: 2.0 - 3.0 Inclu gloria: PROPHYLAXIS for venous thrombosis, systemic embolization; TREATMENT for gilbert ous thrombosis and/or pulmonary embolus.HIGH RISK: Target INR is 2.5-3.5 for pat ients with mechanical heart valves.BASIC METABOLIC [id number] 05:29:00* Test Item Value Reference Range Comments SODIUM (BEAKER) (test sogw=357) 136 meq/L 136-145 POTASSIUM (BEAKER) (test euhm=829) 3.7 meq/L 3.5-5.1 CHLORIDE (BEAKER) (test ewqs=903) 110 meq/L 98-107 CO2 (BEAKER) (test zjfa=773) 20 meq/L 22-29 BLOOD UREA NITROGEN (BEAKER) (test exur=915) 14 mg/dL 7-21 CREATININE (BEAKER) (test wewb=005) 0.70 mg/dL 0.57-1.25 GLUCOSE RANDOM (BEAKER) (test qqsv=720) 82 mg/dL 70-105 CALCIUM (BEAKER) (test qdpz=031) 7.7 mg/dL 8.4-10.2 EGFR (BEAKER) (test rclx=6612) 86 mL/min/1.73 sq m ESTIMATED GFR IS NOT ACCURATE CREATININE CLEARANCE IN PREDICTING GLOMERULAR FILTRATION RATE. ESTIMATED GFR IS NOT APPLICABLE FOR DIALYSIS PATIENTS. [id number] 05:22:00* Test Item Value Reference Range Comments PHOSPHORUS (BEAKER) (test hlut=551) 2.4 mg/dL 2.3-4.7 [id number] 05:22:00* Test Item Value Reference Range Comments MAGNESIUM (BEAKER) (test svjj=525) 2.2 mg/dL 1.6-2.6 CBC (HEMOGRAM ONLY)2017-10-05 05:00:00* Test Item Value Reference Range Comments WHITE BLOOD CELL COUNT (BEAKER) (test ubgl=501) 7.9 K/ L 3.5-10.5 RED BLOOD CELL COUNT (BEAKER) (test kssk=299) 3.09 M/ L 3.93-5.22 HEMOGLOBIN (BEAKER) (test felk=603) 9.0 GM/DL 11.2-15.7 HEMATOCRIT (BEAKER) (test bhyw=779) 28.8 % 34.1-44.9 MEAN CORPUSCULAR VOLUME (BEAKER) (test cjhq=659) 93.2 fL 79.4-94.8 MEAN CORPUSCULAR HEMOGLOBIN (BEAKER) (test ewog=912) 29.1 pg 25.6-32.2 MEAN CORPUSCULAR HEMOGLOBIN CONC (BEAKER) (test rqvo=089) 31.3 GM/DL 32.2-35.5 RED CELL DISTRIBUTION WIDTH (BEAKER) (test xgds=407) 15.9 % 11.7-14.4 PLATELET COUNT (BEAKER) (test gbll=418) 241 K/CU MM 150-450 MEAN PLATELET VOLUME (BEAKER) (test wdek=977) 10.1 fL 9.4-12.3 NUCLEATED RED BLOOD CELLS (BEAKER) (test zock=790) 0 /100 WBC 0-0 POCT-GLUCOSE [id number] 20:53:00* Test Item Value Reference Range Comments POC-GLUCOSE METER (BEAKER) (test arjc=1950) 95 mg/dL 70-110 TESTED AT [facility] [address] [facility] [address] POCT-GLUCOSE [id number] 12:16:00* Test Item Value Reference Range Comments POC-GLUCOSE METER (BEAKER) (test ccbg=0019) 114 mg/dL 70-110 TESTED AT [address] [address] POCT-GLUCOSE [id number] 08:07:00* Test Item Value Reference Range Comments POC-GLUCOSE METER (BEAKER) (test crka=7450) 104 mg/dL 70-110 TESTED AT [address] [address] BASIC METABOLIC [id number] 05:50:00* Test Item Value Reference Range Comments SODIUM (BEAKER) (test znig=158) 139 meq/L 136-145 POTASSIUM (BEAKER) (test fdrl=497) 3.7 meq/L 3.5-5.1 CHLORIDE (BEAKER) (test rmqh=700) 111 meq/L 98-107 CO2 (BEAKER) (test yxsq=126) 19 meq/L 22-29 BLOOD UREA NITROGEN (BEAKER) (test ylfi=293) 18 mg/dL 7-21 CREATININE (BEAKER) (test gdbk=680) 0.73 mg/dL 0.57-1.25 GLUCOSE RANDOM (BEAKER) (test vywy=961) 93 mg/dL 70-105 CALCIUM (BEAKER) (test fecv=022) 7.5 mg/dL 8.4-10.2 EGFR (BEAKER) (test ejmg=6466) 82 mL/min/1.73 sq m ESTIMATED GFR IS NOT ACCURATE CREATININE CLEARANCE IN PREDICTING GLOMERULAR FILTRATION RATE. ESTIMATED GFR IS NOT APPLICABLE FOR DIALYSIS PATIENTS. [id number] 05:49:00* Test Item Value Reference Range Comments PHOSPHORUS (BEAKER) (test cggd=642) 2.3 mg/dL 2.3-4.7 [id number] 05:49:00* Test Item Value Reference Range Comments MAGNESIUM (BEAKER) (test nuab=529) 1.7 mg/dL 1.6-2.6 [id number] 04:33:00* Test Item Value Reference Range Comments PARTIAL THROMBOPLASTIN TIME (BEAKER) (test zfzn=787) 36.9 seconds 22.5-36.0 PROTHROMBIN TIME/[id number] 04:32:00* Test Item Value Reference Range Comments PROTIME (BEAKER) (test faut=373) 19.1 seconds 11.7-14.7 INR (BEAKER) (test pxyy=745) 1.6 <=5.9 RECOMMENDED COUMADIN/WARFARIN INR THERAPY RANGESSTANDARD DOSE: 2.0 - 3.0 Inclu gloria: PROPHYLAXIS for venous thrombosis, systemic embolization; TREATMENT for gilbert ous thrombosis and/or pulmonary embolus.HIGH RISK: Target INR is 2.5-3.5 for pat ients with mechanical heart valves.CBC (HEMOGRAM ONLY)2017-10-04 04:26:00* Test Item Value Reference Range Comments WHITE BLOOD CELL COUNT (BEAKER) (test hxlk=781) 10.0 K/ L 3.5-10.5 RED BLOOD CELL COUNT (BEAKER) (test dnpu=159) 2.64 M/ L 3.93-5.22 HEMOGLOBIN (BEAKER) (test lzdn=652) 7.7 GM/DL 11.2-15.7 HEMATOCRIT (BEAKER) (test qoov=392) 24.8 % 34.1-44.9 MEAN CORPUSCULAR VOLUME (BEAKER) (test epda=488) 93.9 fL 79.4-94.8 MEAN CORPUSCULAR HEMOGLOBIN (BEAKER) (test buta=045) 29.2 pg 25.6-32.2 MEAN CORPUSCULAR HEMOGLOBIN CONC (BEAKER) (test sdjk=376) 31.0 GM/DL 32.2-35.5 RED CELL DISTRIBUTION WIDTH (BEAKER) (test pfvl=410) 15.6 % 11.7-14.4 PLATELET COUNT (BEAKER) (test zafw=656) 240 K/CU MM 150-450 MEAN PLATELET VOLUME (BEAKER) (test vyxu=316) 10.2 fL 9.4-12.3 NUCLEATED RED BLOOD CELLS (BEAKER) (test cnvj=772) 0 /100 WBC 0-0 POCT-GLUCOSE [id number] 19:52:00* Test Item Value Reference Range Comments POC-GLUCOSE METER (BEAKER) (test vmdy=5661) 134 mg/dL 70-110 TESTED AT [address] [address] CBC (HEMOGRAM ONLY)2017-10-03 13:31:00* Test Item Value Reference Range Comments WHITE BLOOD CELL COUNT (BEAKER) (test iowp=449) 12.3 K/ L 3.5-10.5 RED BLOOD CELL COUNT (BEAKER) (test grih=328) 2.79 M/ L 3.93-5.22 HEMOGLOBIN (BEAKER) (test dmhn=492) 8.3 GM/DL 11.2-15.7 HEMATOCRIT (BEAKER) (test aptx=972) 25.6 % 34.1-44.9 MEAN CORPUSCULAR VOLUME (BEAKER) (test fspg=573) 91.8 fL 79.4-94.8 MEAN CORPUSCULAR HEMOGLOBIN (BEAKER) (test kcks=256) 29.7 pg 25.6-32.2 MEAN CORPUSCULAR HEMOGLOBIN CONC (BEAKER) (test wckx=223) 32.4 GM/DL 32.2-35.5 RED CELL DISTRIBUTION WIDTH (BEAKER) (test wuia=599) 15.5 % 11.7-14.4 PLATELET COUNT (BEAKER) (test deep=398) 216 K/CU MM 150-450 MEAN PLATELET VOLUME (BEAKER) (test sesh=239) 10.4 fL 9.4-12.3 NUCLEATED RED BLOOD CELLS (BEAKER) (test ipie=575) 1 /100 WBC 0-0 POCT-GLUCOSE [id number] 12:30:00* Test Item Value Reference Range Comments POC-GLUCOSE METER (BEAKER) (test fgrr=0942) 151 mg/dL 70-110 TESTED AT [address] [address] RAD, CHEST, 1 VIEW, NON [id number] 06:24:00Reason for exam:->Post-opShould this be performed at the bedside?->YesFINAL REPORT RAD, CHEST, 1 VIEW, NON DEPT INDICATION: Post-op COMPARISON: Prior day's exam TECHNIQUE: Portable frontal view of the chest. IMPRESSION: Stable right IJ line.Cardiomediastinal silhouette stable.Stable right-sided hydropneumothorax.Grossly clear left lung.No acute osseous abnormality. Signed: Ray Wei MDReport Verified Date/Time: 10/03/2017 06:24:35 Reading Location: [address] Ortho Consult Reading Room C METABOLIC [id number] 04:37:00* Test Item Value Reference Range Comments SODIUM (BEAKER) (test mxbf=821) 139 meq/L 136-145 POTASSIUM (BEAKER) (test dgbe=829) 4.0 meq/L 3.5-5.1 CHLORIDE (BEAKER) (test aajg=703) 112 meq/L 98-107 CO2 (BEAKER) (test owhj=458) 19 meq/L 22-29 BLOOD UREA NITROGEN (BEAKER) (test bdls=242) 22 mg/dL 7-21 CREATININE (BEAKER) (test fzsj=291) 0.76 mg/dL 0.57-1.25 GLUCOSE RANDOM (BEAKER) (test lvoi=374) 88 mg/dL 70-105 CALCIUM (BEAKER) (test fcro=128) 7.6 mg/dL 8.4-10.2 EGFR (BEAKER) (test mocv=4984) 78 mL/min/1.73 sq m ESTIMATED GFR IS NOT ACCURATE CREATININE CLEARANCE IN PREDICTING GLOMERULAR FILTRATION RATE. ESTIMATED GFR IS NOT APPLICABLE FOR DIALYSIS PATIENTS. [id number] 04:35:00* Test Item Value Reference Range Comments PHOSPHORUS (BEAKER) (test ejzo=161) 2.5 mg/dL 2.3-4.7 [id number] 04:35:00* Test Item Value Reference Range Comments MAGNESIUM (BEAKER) (test xjib=222) 2.0 mg/dL 1.6-2.6 PROTHROMBIN TIME/[id number] 04:22:00* Test Item Value Reference Range Comments PROTIME (BEAKER) (test qlbl=758) 18.7 seconds 11.7-14.7 INR (BEAKER) (test opey=243) 1.6 <=5.9 RECOMMENDED COUMADIN/WARFARIN INR THERAPY RANGESSTANDARD DOSE: 2.0 - 3.0 Inclu gloria: PROPHYLAXIS for venous thrombosis, systemic embolization; TREATMENT for gilbert ous thrombosis and/or pulmonary embolus.HIGH RISK: Target INR is 2.5-3.5 for pat ients with mechanical heart valves.[id number] 04:22:00* Test Item Value Reference Range Comments PARTIAL THROMBOPLASTIN TIME (BEAKER) (test reki=480) 34.5 seconds 22.5-36.0 CBC (HEMOGRAM ONLY)2017-10-03 04:11:00* Test Item Value Reference Range Comments WHITE BLOOD CELL COUNT (BEAKER) (test lfbs=184) 13.3 K/ L 3.5-10.5 RED BLOOD CELL COUNT (BEAKER) (test jekt=753) 2.72 M/ L 3.93-5.22 HEMOGLOBIN (BEAKER) (test rhdh=864) 8.0 GM/DL 11.2-15.7 HEMATOCRIT (BEAKER) (test zddr=471) 24.9 % 34.1-44.9 MEAN CORPUSCULAR VOLUME (BEAKER) (test oall=693) 91.5 fL 79.4-94.8 MEAN CORPUSCULAR HEMOGLOBIN (BEAKER) (test xmpn=960) 29.4 pg 25.6-32.2 MEAN CORPUSCULAR HEMOGLOBIN CONC (BEAKER) (test zqft=942) 32.1 GM/DL 32.2-35.5 RED CELL DISTRIBUTION WIDTH (BEAKER) (test uvyd=869) 15.5 % 11.7-14.4 PLATELET COUNT (BEAKER) (test hjvu=528) 191 K/CU MM 150-450 MEAN PLATELET VOLUME (BEAKER) (test qpds=009) 10.7 fL 9.4-12.3 NUCLEATED RED BLOOD CELLS (BEAKER) (test qxuw=414) 1 /100 WBC 0-0 POCT-GLUCOSE [id number] 21:28:00* Test Item Value Reference Range Comments POC-GLUCOSE METER (BEAKER) (test eoxj=0851) 118 mg/dL 70-110 TESTED AT [facility] [address] [facility] [address] POCT-GLUCOSE [id number] 18:06:00* Test Item Value Reference Range Comments POC-GLUCOSE METER (BEAKER) (test xoxt=1246) 135 mg/dL 70-110 TESTED AT [facility] [address] [facility] [address] POCT-GLUCOSE [id number] 12:43:00* Test Item Value Reference Range Comments POC-GLUCOSE METER (BEAKER) (test yabz=7204) 91 mg/dL 70-110 TESTED AT [facility] [address] [facility] [address] RAD, CHEST, 1 VIEW, NON [id number] 05:22:00Reason for exam:->Post-opShould this be performed at the bedside?->YesFINAL REPORT RAD, CHEST, 1 VIEW, NON DEPT INDICATION: Post-op COMPARISON: Prior day's exam TECHNIQUE: Portable frontal view of the chest. IMPRESSION: Interval extubation. Stable right IJ line.Cardiomediastinal silhouette stable.Right-sided hydropneumothorax. There air component is stable. The fluid component has increased since the prior exam.Grossly clear left hemithorax.No acute osseous abnormality. Signed: Ray Wei MDReport Verified Date/Time: 10/02/2017 05:22:17 Reading Location: [facility] [id number] Ortho Consult Reading Room PHORUS 2017-10-02 04:50:00* Test Item Value Reference Range Comments PHOSPHORUS (BEAKER) (test gaxi=442) 3.1 mg/dL 2.3-4.7 [id number] 04:50:00* Test Item Value Reference Range Comments MAGNESIUM (BEAKER) (test dvpc=142) 2.0 mg/dL 1.6-2.6 BASIC METABOLIC [id number] 04:50:00* Test Item Value Reference Range Comments SODIUM (BEAKER) (test fhoe=339) 137 meq/L 136-145 POTASSIUM (BEAKER) (test xica=414) 4.3 meq/L 3.5-5.1 CHLORIDE (BEAKER) (test ksuo=036) 112 meq/L 98-107 CO2 (BEAKER) (test ikky=347) 19 meq/L 22-29 BLOOD UREA NITROGEN (BEAKER) (test nkbv=996) 26 mg/dL 7-21 CREATININE (BEAKER) (test wiiw=215) 0.90 mg/dL 0.57-1.25 GLUCOSE RANDOM (BEAKER) (test ychh=551) 82 mg/dL 70-105 CALCIUM (BEAKER) (test xnfi=852) 7.9 mg/dL 8.4-10.2 EGFR (BEAKER) (test yrej=4855) 64 mL/min/1.73 sq m ESTIMATED GFR IS NOT ACCURATE CREATININE CLEARANCE IN PREDICTING GLOMERULAR FILTRATION RATE. ESTIMATED GFR IS NOT APPLICABLE FOR DIALYSIS PATIENTS. CBC (HEMOGRAM ONLY)2017-10-02 04:45:00* Test Item Value Reference Range Comments WHITE BLOOD CELL COUNT (BEAKER) (test bjqz=995) 14.1 K/ L 3.5-10.5 RED BLOOD CELL COUNT (BEAKER) (test wfmv=896) 3.02 M/ L 3.93-5.22 HEMOGLOBIN (BEAKER) (test pstx=633) 9.0 GM/DL 11.2-15.7 HEMATOCRIT (BEAKER) (test kmzg=627) 26.8 % 34.1-44.9 MEAN CORPUSCULAR VOLUME (BEAKER) (test pyca=148) 88.7 fL 79.4-94.8 MEAN CORPUSCULAR HEMOGLOBIN (BEAKER) (test lrqc=533) 29.8 pg 25.6-32.2 MEAN CORPUSCULAR HEMOGLOBIN CONC (BEAKER) (test eljf=299) 33.6 GM/DL 32.2-35.5 RED CELL DISTRIBUTION WIDTH (BEAKER) (test lhdd=987) 15.4 % 11.7-14.4 PLATELET COUNT (BEAKER) (test vimu=977) 184 K/CU MM 150-450 MEAN PLATELET VOLUME (BEAKER) (test tycx=796) 10.7 fL 9.4-12.3 NUCLEATED RED BLOOD CELLS (BEAKER) (test gsss=423) 1 /100 WBC 0-0 [id number] 04:37:00* Test Item Value Reference Range Comments PARTIAL THROMBOPLASTIN TIME (BEAKER) (test pfba=616) 36.1 seconds 22.5-36.0 PROTHROMBIN TIME/[id number] 04:36:00* Test Item Value Reference Range Comments PROTIME (BEAKER) (test tibm=923) 18.4 seconds 11.7-14.7 INR (BEAKER) (test tjcy=919) 1.5 <=5.9 RECOMMENDED COUMADIN/WARFARIN INR THERAPY RANGESSTANDARD DOSE: 2.0 - 3.0 Inclu gloria: PROPHYLAXIS for venous thrombosis, systemic embolization; TREATMENT for gilbert ous thrombosis and/or pulmonary embolus.HIGH RISK: Target INR is 2.5-3.5 for pat ients with mechanical heart valves.POCT-GLUCOSE [id number] 22:17:00* Test Item Value Reference Range Comments POC-GLUCOSE METER (BEAKER) (test gpbh=3823) 94 mg/dL 70-110 TESTED AT [address] [address] POCT-GLUCOSE [id number] 17:59:00* Test Item Value Reference Range Comments POC-GLUCOSE METER (BEAKER) (test phhp=9402) 107 mg/dL 70-110 TESTED AT [address] [address] POCT-GLUCOSE [id number] 12:46:00* Test Item Value Reference Range Comments POC-GLUCOSE METER (BEAKER) (test gmsx=1354) 125 mg/dL 70-110 TESTED AT [address] [address] BASIC METABOLIC [id number] 04:26:00* Test Item Value Reference Range Comments SODIUM (BEAKER) (test hjry=995) 135 meq/L 136-145 POTASSIUM (BEAKER) (test pqit=086) 4.7 meq/L 3.5-5.1 CHLORIDE (BEAKER) (test lhac=475) 108 meq/L 98-107 CO2 (BEAKER) (test tiax=933) 19 meq/L 22-29 BLOOD UREA NITROGEN (BEAKER) (test lrjw=000) 27 mg/dL 7-21 CREATININE (BEAKER) (test zkgf=305) 1.31 mg/dL 0.57-1.25 GLUCOSE RANDOM (BEAKER) (test okaf=625) 128 mg/dL 70-105 CALCIUM (BEAKER) (test nfpi=490) 8.8 mg/dL 8.4-10.2 EGFR (BEAKER) (test lqmk=6016) 42 mL/min/1.73 sq m ESTIMATED GFR IS NOT ACCURATE CREATININE CLEARANCE IN PREDICTING GLOMERULAR FILTRATION RATE. ESTIMATED GFR IS NOT APPLICABLE FOR DIALYSIS PATIENTS. Specimen slightly [id number] 04:22:00* Test Item Value Reference Range Comments PHOSPHORUS (BEAKER) (test rcbp=235) 4.4 mg/dL 2.3-4.7 [id number] 04:22:00* Test Item Value Reference Range Comments MAGNESIUM (BEAKER) (test pkzw=178) 1.8 mg/dL 1.6-2.6 RAD, CHEST, 1 VIEW, NON [id number] 04:18:00Reason for exam:->Post-opShould this be performed at the bedside?->YesFINAL REPORT RAD, CHEST, 1 VIEW, NON DEPT INDICATION: Post-op COMPARISON: Prior day's exam TECHNIQUE: Portable frontal view of the chest. IMPRESSION: Stable right IJ line.ET tube terminates 3.7 cm away from the christy.Cardiomediastinal silhouette stable.New moderate-sized right apical pneumothorax.Stable vascular congestion.No acute osseous abnormality. Findings were communicated to Charlee Love RN at the time of this dictation. Signed: Ray Wei MDReport Verified Date/Time: 10/01/2017 04:18:06 Reading Location: [address] Ortho Consult Reading Room [id number] 04:13:00* Test Item Value Reference Range Comments PARTIAL THROMBOPLASTIN TIME (BEAKER) (test bqvz=912) 46.5 seconds 22.5-36.0 PROTHROMBIN TIME/[id number] 04:12:00* Test Item Value Reference Range Comments PROTIME (BEAKER) (test kipe=615) 22.2 seconds 11.7-14.7 INR (BEAKER) (test xhsw=675) 2.0 <=5.9 RECOMMENDED COUMADIN/WARFARIN INR THERAPY RANGESSTANDARD DOSE: 2.0 - 3.0 Inclu gloria: PROPHYLAXIS for venous thrombosis, systemic embolization; TREATMENT for gilbert ous thrombosis and/or pulmonary embolus.HIGH RISK: Target INR is 2.5-3.5 for pat ients with mechanical heart valves.CBC (HEMOGRAM ONLY)2017-10-01 04:06:00* Test Item Value Reference Range Comments WHITE BLOOD CELL COUNT (BEAKER) (test bdpg=152) 8.8 K/ L 3.5-10.5 RED BLOOD CELL COUNT (BEAKER) (test txsq=423) 2.98 M/ L 3.93-5.22 HEMOGLOBIN (BEAKER) (test gtps=607) 8.7 GM/DL 11.2-15.7 HEMATOCRIT (BEAKER) (test ehpw=986) 25.5 % 34.1-44.9 MEAN CORPUSCULAR VOLUME (BEAKER) (test adnx=696) 85.6 fL 79.4-94.8 MEAN CORPUSCULAR HEMOGLOBIN (BEAKER) (test irdm=904) 29.2 pg 25.6-32.2 MEAN CORPUSCULAR HEMOGLOBIN CONC (BEAKER) (test gdrj=147) 34.1 GM/DL 32.2-35.5 RED CELL DISTRIBUTION WIDTH (BEAKER) (test pqxd=589) 14.3 % 11.7-14.4 PLATELET COUNT (BEAKER) (test pgcn=750) 124 K/CU MM 150-450 MEAN PLATELET VOLUME (BEAKER) (test yrpm=317) 11.0 fL 9.4-12.3 NUCLEATED RED BLOOD CELLS (BEAKER) (test oldt=877) 0 /100 WBC 0-0 BLOOD GAS, [id number] 23:35:00* Test Item Value Reference Range Comments PH ARTERIAL (BEAKER) (test iocn=540) 7.36 7.35-7.45 PCO2 ARTERIAL (BEAKER) (test zohi=027) 36 mmHg 35-45 PO2 ARTERIAL (BEAKER) (test twgg=579) 356 mmHg 80-90 O2 SATURATION ARTERIAL (BEAKER) (test bmnj=733) 99.8 % 96.0-97.0 HCO3 ARTERIAL (BEAKER) (test rjzv=657) 20 mmol/L 21-29 BASE EXCESS ARTERIAL (BEAKER) (test bhge=258) -5.0 mmol/L -2.0-3.0 PATIENT TEMPERATURE (BEAKER) (test vijv=3041) 37.0 C FIO2 (BEAKER) (test jikz=7324) 100.0 % SODIUM NA-STAT [id number] 23:35:00* Test Item Value Reference Range Comments SODIUM (BEAKER) (test apsk=072) 133 meq/L 135-148 GLUCOSE-STAT [id number] 23:35:00* Test Item Value Reference Range Comments GLUCOSE RANDOM (BEAKER) (test zymo=394) 155 mg/dL 70-110 HGB/HCT (H&H) - STAT [id number] 23:35:00* Test Item Value Reference Range Comments HEMOGLOBIN (BEAKER) (test zdcr=200) 9.0 g/dL 12.0-15.0 HEMATOCRIT (BEAKER) (test kbql=872) 26.0 % 36.0-45.0 CALCIUM, [id number] 23:35:00* Test Item Value Reference Range Comments CALCIUM IONIZED (BEAKER) (test pqnz=217) 1.03 mmol/L 1.12-1.27 PH, BLOOD (BEAKER) (test dikb=7825) 7.36 POTASSIUM-STAT [id number] 23:34:00* Test Item Value Reference Range Comments POTASSIUM (BEAKER) (test wnbj=333) 4.6 meq/L 3.6-5.5 POTASSIUM-STAT [id number] 22:18:00* Test Item Value Reference Range Comments POTASSIUM (BEAKER) (test ykud=414) 5.5 meq/L 3.6-5.5 HGB/HCT (H&H) - STAT [id number] 22:18:00* Test Item Value Reference Range Comments HEMOGLOBIN (BEAKER) (test besi=096) 12.4 g/dL 12.0-15.0 HEMATOCRIT (BEAKER) (test owgd=861) 36.0 % 36.0-45.0 BLOOD GAS, [id number] 22:18:00* Test Item Value Reference Range Comments PH ARTERIAL (BEAKER) (test vwmj=946) 7.33 7.35-7.45 PCO2 ARTERIAL (BEAKER) (test dbiu=225) 38 mmHg 35-45 PO2 ARTERIAL (BEAKER) (test jnli=615) 194 mmHg 80-90 O2 SATURATION ARTERIAL (BEAKER) (test rght=278) 99.3 % 96.0-97.0 HCO3 ARTERIAL (BEAKER) (test qsam=113) 20 mmol/L 21-29 BASE EXCESS ARTERIAL (BEAKER) (test zbyv=711) -5.4 mmol/L -2.0-3.0 PATIENT TEMPERATURE (BEAKER) (test kjez=0273) 37.0 C SODIUM NA-STAT [id number] 22:18:00* Test Item Value Reference Range Comments SODIUM (BEAKER) (test wurm=629) 130 meq/L 135-148 GLUCOSE-STAT [id number] 22:18:00* Test Item Value Reference Range Comments GLUCOSE RANDOM (BEAKER) (test suzn=586) 156 mg/dL 70-110 CALCIUM, [id number] 22:17:00* Test Item Value Reference Range Comments CALCIUM IONIZED (BEAKER) (test lhpb=255) 0.94 mmol/L 1.12-1.27 PH, BLOOD (BEAKER) (test mwwn=6430) 7.33 [id number] 20:41:00* Test Item Value Reference Range Comments PROTIME (BEAKER) (test etvx=852) 21.7 seconds 11.7-14.7 INR (BEAKER) (test eaek=241) 1.9 <=5.9 PARTIAL THROMBOPLASTIN TIME (BEAKER) (test wnkd=748) 40.2 seconds 22.5-36.0 RECOMMENDED COUMADIN/WARFARIN INR THERAPY RANGESSTANDARD DOSE: 2.0 - 3.0 Inclu gloria: PROPHYLAXIS for venous thrombosis, systemic embolization; TREATMENT for gilbert ous thrombosis and/or pulmonary embolus.HIGH RISK: Target INR is 2.5-3.5 for pat ients with mechanical heart valves.BASIC METABOLIC [id number] 19:50:00* Test Item Value Reference Range Comments SODIUM (BEAKER) (test dtiv=836) 133 meq/L 136-145 POTASSIUM (BEAKER) (test uudb=652) 5.9 meq/L 3.5-5.1 CHLORIDE (BEAKER) (test ziak=774) 106 meq/L 98-107 CO2 (BEAKER) (test qwlx=161) 17 meq/L 22-29 BLOOD UREA NITROGEN (BEAKER) (test rdjw=344) 25 mg/dL 7-21 CREATININE (BEAKER) (test qxuc=076) 1.20 mg/dL 0.57-1.25 GLUCOSE RANDOM (BEAKER) (test euld=549) 124 mg/dL 70-105 CALCIUM (BEAKER) (test lcyx=361) 7.2 mg/dL 8.4-10.2 EGFR (MARYLIN) (test vnwv=1445) 46 mL/min/1.73 sq m ESTIMATED GFR IS NOT ACCURATE CREATININE CLEARANCE IN PREDICTING GLOMERULAR FILTRATION RATE. ESTIMATED GFR IS NOT APPLICABLE FOR DIALYSIS PATIENTS. CT, [id number] 19:39:00FINAL REPORT CT of the Chest, abdomen and pelvis dated 09/30/2017 Clinical information: high suspicion of bleeding post-op Comment: Axial images of the chest, abdomen, and pelvis were obtained from thoracic inlet to the pubic symphysis with intravenous contrast. This exam was performed according to our departmental dose-optimization program, which includes automated exposure control, adjustment of the mA and/or kV according to patient size and/or use of interactive reconstruction technique. Heart is normal in size. Great vessels are unremarkable. No adenopathy in the mediastinum or perihilar region. Trachea and mainstem bronchi are patent. Moderate right pleural effusion is present with right lower lobe compressive atelectasis. A 1.1 cm nodule seen in the right mid lobe. The rest of the lungs are clear. Liver and spleen are normal in size. The margin of the liver is irregular. Hypodense areas are seen in the right hepatic lobe. This may be secondary to mass lesions or perfusion abnormality. Gallbladder is distended. No gallstone or biliary dilatation is noted. Pancreas and left adrenal are unremarkable. Right adrenal is not well seen. Patient is status post right nephrectomy. A large complex hyperdense collection is seen in the right mid abdomen measuring at least 11 x 8.6 x 16 cm suggestive of hemorrhage/hematoma. A curvilinear hyperdense area is noted in the posterior to the right hepatic lobe suggestive active bleeding. Left kidney is normal in size and functioning. The evaluation of the small and large bowel is limited secondary to lack of GI co ntrast. Large amount fecal material is seen in the large bowel and rectum sugges tive of constipation. No small or large bowel dilatation is noted. No pneumoperi toneum is seen. Impression: 1. Right pleural effusion with right lower lobe com pressive atelectasis.2. Right mid lobe nodule.3. 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 Large hematoma in the right mid abdomen with possible active bleeding.5. Heterogeneous appearing liver with hypodense areas i n the right hepatic lobe secondary to perfusion defect or mass lesions. Findings were given to patient's PA Gretta Ureña at the time of the dictation. Signed: Valentine Blount MDReport Verified Date/Time: 09/30/2017 19:39:53 Reading Location: [facility] B1 C013Y CT Body Reading Room , CHEST, WITH [id number] 19:39:00FINAL REPORT CT of the Chest, abdomen and pelvis dated 09/30/2017 Clinical information: high suspicion of bleeding post-op Comment: Axial images of the chest, abdomen, and pelvis were obtained from thoracic inlet to the pubic symphysis with intravenous contrast. This exam was performed according to our departmental dose-optimization program, which includes automated exposure control, adjustment of the mA and/or kV according to patient size and/or use of interactive reconstruction technique. Heart is normal in size. Great vessels a re unremarkable. No adenopathy in the mediastinum or perihilar region. Trachea a nd mainstem bronchi are patent. Moderate right pleural effusion is present with right lower lobe compressive atelectasis. A 1.1 cm nodule seen in the right mid lobe. The rest of the lungs are clear. Liver and spleen are normal in size. The margin of the liver is irregular. Hypodense areas are seen in the right hepatic lobe. This may be secondary to mass lesions or perfusion abnormality. Gallbladd er is distended. No gallstone or biliary dilatation is noted. Pancreas and left adrenal are unremarkable. Right adrenal is not well seen. Patient is status post right nephrectomy. A large complex hyperdense collection is seen in the right m id abdomen measuring at least 11 x 8.6 x 16 cm suggestive of hemorrhage/hematoma . A curvilinear hyperdense area is noted in the posterior to the right hepatic l obe suggestive active bleeding. Left kidney is normal in size and functioning. T he evaluation of the small and large bowel is limited secondary to lack of GI co ntrast. Large amount fecal material is seen in the large bowel and rectum sugges tive of constipation. No small or large bowel dilatation is noted. No pneumoperi toneum is seen. Impression: 1. Right pleural effusion with right lower lobe com pressive atelectasis.2. Right mid lobe nodule.3. 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 Large hematoma in the right mid abdomen with possible active bleeding.5. Heterogeneous appearing liver with hypodense areas i n the right hepatic lobe secondary to perfusion defect or mass lesions. Findings were given to patient's PA Gretta Ureña at the time of the dictation. Signed: Valentine Blount MDReport Verified Date/Time: 09/30/2017 19:39:53 Reading Location: [facility] C013Y CT Body Reading Room (HEMOGRAM ONLY)2017-09-30 19:24:00* Test Item Value Reference Range Comments WHITE BLOOD CELL COUNT (BEAKER) (test srfw=285) 14.6 K/ L 3.5-10.5 RED BLOOD CELL COUNT (BEAKER) (test wdfs=383) 4.46 M/ L 3.93-5.22 HEMOGLOBIN (BEAKER) (test kxkk=620) 13.1 GM/DL 11.2-15.7 HEMATOCRIT (BEAKER) (test rrjv=919) 39.1 % 34.1-44.9 MEAN CORPUSCULAR VOLUME (BEAKER) (test pyxb=661) 87.7 fL 79.4-94.8 MEAN CORPUSCULAR HEMOGLOBIN (BEAKER) (test zgjz=462) 29.4 pg 25.6-32.2 MEAN CORPUSCULAR HEMOGLOBIN CONC (BEAKER) (test vzqy=412) 33.5 GM/DL 32.2-35.5 RED CELL DISTRIBUTION WIDTH (BEAKER) (test heoe=543) 14.6 % 11.7-14.4 PLATELET COUNT (BEAKER) (test kekx=578) 121 K/CU MM 150-450 MEAN PLATELET VOLUME (BEAKER) (test rrle=951) 11.3 fL 9.4-12.3 NUCLEATED RED BLOOD CELLS (BEAKER) (test egqh=755) 0 /100 WBC 0-0 CALCIUM, [id number] 19:22:00* Test Item Value Reference Range Comments CALCIUM IONIZED (BEAKER) (test aupb=269) 0.98 mmol/L 1.12-1.27 PH, BLOOD (BEAKER) (test ssqo=9158) 7.40 RAD, CHEST, 1 VIEW, NON [id number] 16:36:00Reason for exam:->central line placement Should this be performed at the bedside?->YesFINAL REPORT AP chest HISTORY: Central line COMPARISON: 09/29/2017 IMPRESSION:Right IJ central venous catheter placed with tip near cavoatrial junction. Heart size stable. Right diaphragm elevation. Adjacent basilar atelectasis or scarring. Left lung grossly clear. No pneumothorax. Signed: Dora Arriaga MDReport Verified Date/Time: 09/30/2017 16:36:04 Reading Location: [facility] Reading Room [id number] 16:04:00* Test Item Value Reference Range Comments CORTISOL, TOTAL (BEAKER) (test znvn=4235) 29.6 ug/dL 3.7-19.4 CBC W/PLT COUNT & AUTO [id number] 13:41:00* Test Item Value Reference Range Comments WHITE BLOOD CELL COUNT (BEAKER) (test jjik=823) 9.9 K/ L 3.5-10.5 RED BLOOD CELL COUNT (BEAKER) (test rlzj=881) 2.31 M/ L 3.93-5.22 HEMOGLOBIN (BEAKER) (test mtxk=660) 6.5 GM/DL 11.2-15.7 HEMATOCRIT (BEAKER) (test ohcz=643) 20.7 % 34.1-44.9 MEAN CORPUSCULAR VOLUME (BEAKER) (test vpfg=006) 89.6 fL 79.4-94.8 MEAN CORPUSCULAR HEMOGLOBIN (BEAKER) (test afrc=504) 28.1 pg 25.6-32.2 MEAN CORPUSCULAR HEMOGLOBIN CONC (BEAKER) (test lxnb=924) 31.4 GM/DL 32.2-35.5 RED CELL DISTRIBUTION WIDTH (BEAKER) (test hfyk=810) 15.8 % 11.7-14.4 PLATELET COUNT (BEAKER) (test eeig=857) 160 K/CU MM 150-450 MEAN PLATELET VOLUME (BEAKER) (test vpix=241) 11.2 fL 9.4-12.3 NUCLEATED RED BLOOD CELLS (BEAKER) (test txkm=958) 0 /100 WBC 0-0 NEUTROPHILS RELATIVE PERCENT (BEAKER) (test hqan=019) 84 % LYMPHOCYTES RELATIVE PERCENT (BEAKER) (test qlba=028) 11 % MONOCYTES RELATIVE PERCENT (BEAKER) (test joua=869) 4 % EOSINOPHILS RELATIVE PERCENT (BEAKER) (test sjtf=672) 0 % BASOPHILS RELATIVE PERCENT (BEAKER) (test jeoo=006) 0 % NEUTROPHILS ABSOLUTE COUNT (BEAKER) (test bnjv=734) 8.31 K/ L 1.56-6.13 LYMPHOCYTES ABSOLUTE COUNT (BEAKER) (test iwoz=547) 1.07 K/ L 1.18-3.74 MONOCYTES ABSOLUTE COUNT (BEAKER) (test vexd=216) 0.37 K/ L 0.24-0.36 EOSINOPHILS ABSOLUTE COUNT (BEAKER) (test nagm=228) 0.01 K/ L 0.04-0.36 BASOPHILS ABSOLUTE COUNT (BEAKER) (test uyhl=797) 0.02 K/ L 0.01-0.08 IMMATURE GRANULOCYTES-RELATIVE PERCENT (BEAKER) (test jxam=1634) 1 % 0-1 POCT-GLUCOSE [id number] 09:16:00* Test Item Value Reference Range Comments POC-GLUCOSE METER (BEAKER) (test zifn=0673) 176 mg/dL 70-110 TESTED AT [address] [address] POCT-GLUCOSE [id number] 07:54:00* Test Item Value Reference Range Comments POC-GLUCOSE METER (BEAKER) (test jeyf=9065) 135 mg/dL 70-110 TESTED AT [address] [address] [id number] 06:24:00* Test Item Value Reference Range Comments PHOSPHORUS (BEAKER) (test eqfz=610) 2.7 mg/dL 2.3-4.7 [id number] 06:24:00* Test Item Value Reference Range Comments MAGNESIUM (BEAKER) (test silw=365) 2.1 mg/dL 1.6-2.6 BASIC METABOLIC [id number] 06:24:00* Test Item Value Reference Range Comments SODIUM (BEAKER) (test dbhx=392) 134 meq/L 136-145 POTASSIUM (BEAKER) (test napt=711) 4.2 meq/L 3.5-5.1 CHLORIDE (BEAKER) (test bkpi=633) 102 meq/L 98-107 CO2 (BEAKER) (test xepb=482) 27 meq/L 22-29 BLOOD UREA NITROGEN (BEAKER) (test xaoq=636) 19 mg/dL 7-21 CREATININE (BEAKER) (test fupz=644) 0.73 mg/dL 0.57-1.25 GLUCOSE RANDOM (BEAKER) (test yldm=594) 90 mg/dL 70-105 CALCIUM (BEAKER) (test rwzm=003) 8.2 mg/dL 8.4-10.2 EGFR (BEAKER) (test ccga=4781) 82 mL/min/1.73 sq m ESTIMATED GFR IS NOT ACCURATE CREATININE CLEARANCE IN PREDICTING GLOMERULAR FILTRATION RATE. ESTIMATED GFR IS NOT APPLICABLE FOR DIALYSIS PATIENTS. [id number] 06:19:00* Test Item Value Reference Range Comments PARTIAL THROMBOPLASTIN TIME (BEAKER) (test rfme=388) 51.0 seconds 22.5-36.0 PROTHROMBIN TIME/[id number] 06:18:00* Test Item Value Reference Range Comments PROTIME (BEAKER) (test lfcu=328) 16.0 seconds 11.7-14.7 INR (BEAKER) (test ilnl=669) 1.3 <=5.9 RECOMMENDED COUMADIN/WARFARIN INR THERAPY RANGESSTANDARD DOSE: 2.0 - 3.0 Inclu gloria: PROPHYLAXIS for venous thrombosis, systemic embolization; TREATMENT for gilbert ous thrombosis and/or pulmonary embolus.HIGH RISK: Target INR is 2.5-3.5 for pat ients with mechanical heart valves.CBC (HEMOGRAM ONLY)2017-09-30 06:01:00* Test Item Value Reference Range Comments WHITE BLOOD CELL COUNT (BEAKER) (test owtj=323) 9.1 K/ L 3.5-10.5 RED BLOOD CELL COUNT (BEAKER) (test lvvo=026) 2.57 M/ L 3.93-5.22 HEMOGLOBIN (BEAKER) (test nqth=284) 7.3 GM/DL 11.2-15.7 HEMATOCRIT (BEAKER) (test autd=716) 23.3 % 34.1-44.9 MEAN CORPUSCULAR VOLUME (BEAKER) (test sojq=325) 90.7 fL 79.4-94.8 MEAN CORPUSCULAR HEMOGLOBIN (BEAKER) (test lclx=993) 28.4 pg 25.6-32.2 MEAN CORPUSCULAR HEMOGLOBIN CONC (BEAKER) (test ihgw=972) 31.3 GM/DL 32.2-35.5 RED CELL DISTRIBUTION WIDTH (BEAKER) (test fykt=819) 16.3 % 11.7-14.4 PLATELET COUNT (BEAKER) (test evqs=739) 203 K/CU MM 150-450 MEAN PLATELET VOLUME (BEAKER) (test vrie=957) 10.9 fL 9.4-12.3 NUCLEATED RED BLOOD CELLS (BEAKER) (test rtup=889) 0 /100 WBC 0-0 POCT-GLUCOSE [id number] 21:13:00* Test Item Value Reference Range Comments POC-GLUCOSE METER (BEAKER) (test agqr=1142) 122 mg/dL 70-110 TESTED AT [address] [address] POCT-GLUCOSE [id number] 17:16:00* Test Item Value Reference Range Comments POC-GLUCOSE METER (BEAKER) (test qtyg=6619) 103 mg/dL 70-110 TESTED AT [address] [address] POCT-GLUCOSE [id number] 11:39:00* Test Item Value Reference Range Comments POC-GLUCOSE METER (BEAKER) (test bbrt=8049) 163 mg/dL 70-110 TESTED AT [address] [address] RAD, CHEST, 1 VIEW, NON [id number] 09:08:00Reason for exam:->Post-opShould this be performed at the bedside?->YesFINAL REPORT CLINICAL HISTORY: Post-op TECHNIQUE: 1 view of the chest. COMPARISON: 09/28/2017 IMPRESSION: A right jugular sheath is again seen. Mild elevation of the right hemidiaphragm is again seen with right basilar atelectasis and a trace right effusion. The left lung remains well-aerated. The heart is not enlarged. Right upper quadrant surgical clips are again seen. Signed: Aries Ambrosio MDReport Verified Date/Time: 09/29/2017 09:08:07 Reading [facility] Reading [facility] -GLUCOSE [id number] 07:45:00* Test Item Value Reference Range Comments POC-GLUCOSE METER (BEAKER) (test ffbc=8861) 106 mg/dL 70-110 TESTED AT [facility] [address] [facility] [address] [id number] 06:58:00* Test Item Value Reference Range Comments PHOSPHORUS (BEAKER) (test kwmm=710) 3.1 mg/dL 2.3-4.7 [id number] 06:58:00* Test Item Value Reference Range Comments MAGNESIUM (BEAKER) (test sujw=104) 1.6 mg/dL 1.6-2.6 BASIC METABOLIC [id number] 06:58:00* Test Item Value Reference Range Comments SODIUM (BEAKER) (test yoey=853) 137 meq/L 136-145 POTASSIUM (BEAKER) (test eldy=280) 4.1 meq/L 3.5-5.1 CHLORIDE (BEAKER) (test wqbe=758) 103 meq/L 98-107 CO2 (BEAKER) (test cnyp=041) 27 meq/L 22-29 BLOOD UREA NITROGEN (BEAKER) (test mheg=855) 23 mg/dL 7-21 CREATININE (BEAKER) (test iesh=537) 0.77 mg/dL 0.57-1.25 GLUCOSE RANDOM (BEAKER) (test edsi=018) 81 mg/dL 70-105 CALCIUM (BEAKER) (test ltkb=850) 8.6 mg/dL 8.4-10.2 EGFR (BEAKER) (test mzxw=4295) 77 mL/min/1.73 sq m ESTIMATED GFR IS NOT ACCURATE CREATININE CLEARANCE IN PREDICTING GLOMERULAR FILTRATION RATE. ESTIMATED GFR IS NOT APPLICABLE FOR DIALYSIS PATIENTS. [id number] 06:50:00* Test Item Value Reference Range Comments PARTIAL THROMBOPLASTIN TIME (BEAKER) (test bhll=801) 46.2 seconds 22.5-36.0 PROTHROMBIN TIME/[id number] 06:49:00* Test Item Value Reference Range Comments PROTIME (BEAKER) (test ttrs=969) 17.6 seconds 11.7-14.7 INR (BEAKER) (test jusq=810) 1.5 <=5.9 RECOMMENDED COUMADIN/WARFARIN INR THERAPY RANGESSTANDARD DOSE: 2.0 - 3.0 Inclu gloria: PROPHYLAXIS for venous thrombosis, systemic embolization; TREATMENT for gilbert ous thrombosis and/or pulmonary embolus.HIGH RISK: Target INR is 2.5-3.5 for pat ients with mechanical heart valves.CBC (HEMOGRAM ONLY)2017-09-29 06:26:00* Test Item Value Reference Range Comments WHITE BLOOD CELL COUNT (BEAKER) (test fvry=637) 12.5 K/ L 3.5-10.5 RED BLOOD CELL COUNT (BEAKER) (test zwtr=186) 2.93 M/ L 3.93-5.22 HEMOGLOBIN (BEAKER) (test cyab=986) 8.4 GM/DL 11.2-15.7 HEMATOCRIT (BEAKER) (test gmen=248) 26.4 % 34.1-44.9 MEAN CORPUSCULAR VOLUME (BEAKER) (test wlod=312) 90.1 fL 79.4-94.8 MEAN CORPUSCULAR HEMOGLOBIN (BEAKER) (test zbbg=465) 28.7 pg 25.6-32.2 MEAN CORPUSCULAR HEMOGLOBIN CONC (BEAKER) (test tlun=606) 31.8 GM/DL 32.2-35.5 RED CELL DISTRIBUTION WIDTH (BEAKER) (test gjuj=799) 16.8 % 11.7-14.4 PLATELET COUNT (BEAKER) (test ytag=447) 169 K/CU MM 150-450 MEAN PLATELET VOLUME (BEAKER) (test xyht=429) 11.3 fL 9.4-12.3 NUCLEATED RED BLOOD CELLS (BEAKER) (test lwex=692) 0 /100 WBC 0-0 POCT-GLUCOSE [id number] 21:28:00* Test Item Value Reference Range Comments POC-GLUCOSE METER (BEAKER) (test qxwh=1328) 116 mg/dL 70-110 TESTED AT [facility] [address] [facility] [address] POCT-GLUCOSE [id number] 17:30:00* Test Item Value Reference Range Comments POC-GLUCOSE METER (BEAKER) (test wykx=8035) 121 mg/dL 70-110 TESTED AT [facility] [address] [facility] [address] HEMOGLOBIN AND [id number] 13:32:00* Test Item Value Reference Range Comments HEMOGLOBIN (BEAKER) (test yqtg=822) 9.0 GM/DL 11.2-15.7 HEMATOCRIT (BEAKER) (test dxee=230) 27.7 % 34.1-44.9 POCT-GLUCOSE [id number] 11:48:00* Test Item Value Reference Range Comments POC-GLUCOSE METER (BEAKER) (test prwj=8852) 141 mg/dL 70-110 TESTED AT [address] [address] RAD, CHEST, 1 VIEW, NON [id number] 08:35:00Reason for exam:->Post-opShould this be performed at the bedside?->YesFINAL REPORT AP chest HISTORY: Postoperative COMPARISON: 09/27/2017 IMPRESSION:Central line removed. Stable cardiac silhouette. Apparent right hemidiaphragm elevation. Lungs grossly clear. No pneumothorax. Signed: Dora Arriaga MDReport Verified Date/Time: 09/28/2017 08:35:51 Reading Location: [facility] -GLUCOSE [id number] 06:30:00* Test Item Value Reference Range Comments POC-GLUCOSE METER (BEAKER) (test dpfn=0132) 121 mg/dL 70-110 TESTED AT [facility] [address] [facility] [address] POCT-GLUCOSE [id number] 06:18:00* Test Item Value Reference Range Comments POC-GLUCOSE METER (BEAKER) (test izef=4620) 207 mg/dL 70-110 TESTED AT [place] [id number] [facility] [address] [id number] 05:57:00* Test Item Value Reference Range Comments PHOSPHORUS (BEAKER) (test whvx=731) 4.5 mg/dL 2.3-4.7 [id number] 05:57:00* Test Item Value Reference Range Comments MAGNESIUM (BEAKER) (test ztbh=905) 1.6 mg/dL 1.6-2.6 BASIC METABOLIC [id number] 05:57:00* Test Item Value Reference Range Comments SODIUM (BEAKER) (test ywzy=585) 139 meq/L 136-145 POTASSIUM (BEAKER) (test vekw=883) 4.2 meq/L 3.5-5.1 CHLORIDE (BEAKER) (test mmiz=728) 105 meq/L 98-107 CO2 (BEAKER) (test yhpy=756) 27 meq/L 22-29 BLOOD UREA NITROGEN (BEAKER) (test ccbq=457) 26 mg/dL 7-21 CREATININE (BEAKER) (test qymb=057) 1.00 mg/dL 0.57-1.25 GLUCOSE RANDOM (BEAKER) (test jjsi=623) 110 mg/dL 70-105 CALCIUM (BEAKER) (test ipig=028) 9.0 mg/dL 8.4-10.2 EGFR (BEAKER) (test gopg=7237) 57 mL/min/1.73 sq m ESTIMATED GFR IS NOT ACCURATE CREATININE CLEARANCE IN PREDICTING GLOMERULAR FILTRATION RATE. ESTIMATED GFR IS NOT APPLICABLE FOR DIALYSIS PATIENTS. [id number] 05:36:00* Test Item Value Reference Range Comments PARTIAL THROMBOPLASTIN TIME (BEAKER) (test kxax=966) 35.3 seconds 22.5-36.0 PROTHROMBIN TIME/[id number] 05:35:00* Test Item Value Reference Range Comments PROTIME (BEAKER) (test lphc=973) 16.1 seconds 11.7-14.7 INR (BEAKER) (test rbzf=686) 1.3 <=5.9 RECOMMENDED COUMADIN/WARFARIN INR THERAPY RANGESSTANDARD DOSE: 2.0 - 3.0 Inclu gloria: PROPHYLAXIS for venous thrombosis, systemic embolization; TREATMENT for gilbert ous thrombosis and/or pulmonary embolus.HIGH RISK: Target INR is 2.5-3.5 for pat ients with mechanical heart valves.CBC (HEMOGRAM ONLY)2017-09-28 05:27:00* Test Item Value Reference Range Comments WHITE BLOOD CELL COUNT (BEAKER) (test pmhw=947) 13.5 K/ L 3.5-10.5 RED BLOOD CELL COUNT (BEAKER) (test kewv=115) 3.12 M/ L 3.93-5.22 HEMOGLOBIN (BEAKER) (test mxgi=357) 8.8 GM/DL 11.2-15.7 HEMATOCRIT (BEAKER) (test edag=881) 27.4 % 34.1-44.9 MEAN CORPUSCULAR VOLUME (BEAKER) (test vngv=343) 87.8 fL 79.4-94.8 MEAN CORPUSCULAR HEMOGLOBIN (BEAKER) (test euek=260) 28.2 pg 25.6-32.2 MEAN CORPUSCULAR HEMOGLOBIN CONC (BEAKER) (test ksjt=486) 32.1 GM/DL 32.2-35.5 RED CELL DISTRIBUTION WIDTH (BEAKER) (test svgm=485) 16.9 % 11.7-14.4 PLATELET COUNT (BEAKER) (test ftvv=498) 150 K/CU MM 150-450 MEAN PLATELET VOLUME (BEAKER) (test slok=648) 11.2 fL 9.4-12.3 NUCLEATED RED BLOOD CELLS (BEAKER) (test tcdb=438) 0 /100 WBC 0-0 POCT-GLUCOSE [id number] 21:36:00* Test Item Value Reference Range Comments POC-GLUCOSE METER (BEAKER) (test sywi=3593) 164 mg/dL 70-110 TESTED AT [address] [address] POCT-GLUCOSE [id number] 16:44:00* Test Item Value Reference Range Comments POC-GLUCOSE METER (BEAKER) (test hqdj=1519) 188 mg/dL 70-110 TESTED AT [address] [address] POCT-GLUCOSE [id number] 11:46:00* Test Item Value Reference Range Comments POC-GLUCOSE METER (BEAKER) (test fkci=2244) 108 mg/dL 70-110 TESTED AT [address] [address] POCT-GLUCOSE [id number] 07:56:00* Test Item Value Reference Range Comments POC-GLUCOSE METER (BEAKER) (test imye=2085) 131 mg/dL 70-110 TESTED AT [address] [address] POCT-GLUCOSE [id number] 05:54:00* Test Item Value Reference Range Comments POC-GLUCOSE METER (BEAKER) (test uwpz=2303) 98 mg/dL 70-110 TESTED AT [address] [place] [address] [id number] 05:51:00* Test Item Value Reference Range Comments PHOSPHORUS (BEAKER) (test cvga=158) 4.4 mg/dL 2.3-4.7 [id number] 05:51:00* Test Item Value Reference Range Comments MAGNESIUM (BEAKER) (test dvxw=993) 1.6 mg/dL 1.6-2.6 BASIC METABOLIC [id number] 05:51:00* Test Item Value Reference Range Comments SODIUM (BEAKER) (test cgpk=607) 140 meq/L 136-145 POTASSIUM (BEAKER) (test wcxa=099) 4.1 meq/L 3.5-5.1 CHLORIDE (BEAKER) (test txdj=792) 108 meq/L 98-107 CO2 (BEAKER) (test snzc=866) 21 meq/L 22-29 BLOOD UREA NITROGEN (BEAKER) (test bsap=354) 21 mg/dL 7-21 CREATININE (BEAKER) (test axbp=058) 0.92 mg/dL 0.57-1.25 GLUCOSE RANDOM (BEAKER) (test fvyd=213) 108 mg/dL 70-105 CALCIUM (BEAKER) (test mhqx=725) 9.7 mg/dL 8.4-10.2 EGFR (BEAKER) (test lnka=3875) 62 mL/min/1.73 sq m ESTIMATED GFR IS NOT ACCURATE CREATININE CLEARANCE IN PREDICTING GLOMERULAR FILTRATION RATE. ESTIMATED GFR IS NOT APPLICABLE FOR DIALYSIS PATIENTS. Specimen slightly ictericRAD, CHEST, 1 VIEW, NON [id number] 05:42:00Reason for exam:->Post-opShould this be performed at the bedside?->YesFINAL REPORT Chest one view. Clinical history: Post-op Comparison: Chest radiograph 10/10 Technique: A single frontal view of the chest was obtained. Findings: Previously noted endotracheal and feeding tubes have been removed. Right IJ pulmonary arterial catheter is present. The distal portion of the catheter is partially coiled in the right ventricle. The heart is normal in size. The aorta is uncoiled. There are low lung volumes. There are mild atel ectatic changes in the bilateral lung bases. There is no pleural effusion or pne umothorax. There are multiple surgical clips in the right upper quadrant. Impres mara:Interval removal of endotracheal and feeding tubes.Distal portion of right IJ pulmonary arterial catheter is coiled in the right ventricle.Low lung volumes . Mild bibasilar atelectatic changes. Findings discussed with LUCI Rivas 5:40 AM on 09/27/2017. Signed: Lakshmi Galan Verified Date/Time: 11/2017 05:42:15 Reading Location: [address] Transitional Reading Room Elec tronically signed by: LAKSHMI GALAN MD on 09/27/2017 05:42 AM APTT 2017-09-27 05:03:00* Test Item Value Reference Range Comments PARTIAL THROMBOPLASTIN TIME (BEAKER) (test jhnq=053) 32.0 seconds 22.5-36.0 PROTHROMBIN TIME/[id number] 05:02:00* Test Item Value Reference Range Comments PROTIME (BEAKER) (test djhs=259) 16.6 seconds 11.7-14.7 INR (BEAKER) (test ohpk=753) 1.4 <=5.9 RECOMMENDED COUMADIN/WARFARIN INR THERAPY RANGESSTANDARD DOSE: 2.0 - 3.0 Inclu gloria: PROPHYLAXIS for venous thrombosis, systemic embolization; TREATMENT for gilbert ous thrombosis and/or pulmonary embolus.HIGH RISK: Target INR is 2.5-3.5 for pat ients with mechanical heart valves.CBC (HEMOGRAM ONLY)2017-09-27 04:53:00* Test Item Value Reference Range Comments WHITE BLOOD CELL COUNT (BEAKER) (test pucj=448) 11.3 K/ L 3.5-10.5 RED BLOOD CELL COUNT (BEAKER) (test dbwb=588) 3.67 M/ L 3.93-5.22 HEMOGLOBIN (BEAKER) (test oaqd=750) 10.4 GM/DL 11.2-15.7 HEMATOCRIT (BEAKER) (test sxqh=686) 30.8 % 34.1-44.9 MEAN CORPUSCULAR VOLUME (BEAKER) (test muqr=457) 83.9 fL 79.4-94.8 MEAN CORPUSCULAR HEMOGLOBIN (BEAKER) (test vdcp=829) 28.3 pg 25.6-32.2 MEAN CORPUSCULAR HEMOGLOBIN CONC (BEAKER) (test rrpi=021) 33.8 GM/DL 32.2-35.5 RED CELL DISTRIBUTION WIDTH (BEAKER) (test elqu=247) 15.9 % 11.7-14.4 PLATELET COUNT (BEAKER) (test yvtw=226) 152 K/CU MM 150-450 MEAN PLATELET VOLUME (BEAKER) (test jspr=646) 11.0 fL 9.4-12.3 NUCLEATED RED BLOOD CELLS (BEAKER) (test gmpv=236) 0 /100 WBC 0-0 POCT-GLUCOSE [id number] 04:41:00* Test Item Value Reference Range Comments POC-GLUCOSE METER (BEAKER) (test mxbu=2884) 105 mg/dL 70-110 TESTED AT [address] [address] POCT-GLUCOSE [id number] 03:27:00* Test Item Value Reference Range Comments POC-GLUCOSE METER (BEAKER) (test rjoq=8712) 105 mg/dL 70-110 TESTED AT [address] [address] POCT-GLUCOSE [id number] 01:47:00* Test Item Value Reference Range Comments POC-GLUCOSE METER (BEAKER) (test sjni=5682) 140 mg/dL 70-110 TESTED AT [address] [address] POCT-GLUCOSE [id number] 23:33:00* Test Item Value Reference Range Comments POC-GLUCOSE METER (BEAKER) (test ocfm=4984) 157 mg/dL 70-110 TESTED AT [address] [address] POCT-GLUCOSE [id number] 22:31:00* Test Item Value Reference Range Comments POC-GLUCOSE METER (BEAKER) (test llxl=3793) 184 mg/dL 70-110 TESTED AT [address] [address] POCT-GLUCOSE [id number] 21:21:00* Test Item Value Reference Range Comments POC-GLUCOSE METER (BEAKER) (test zips=4014) 189 mg/dL 70-110 TESTED AT [address] [address] POCT-GLUCOSE [id number] 20:10:00* Test Item Value Reference Range Comments POC-GLUCOSE METER (BEAKER) (test uptg=0250) 212 mg/dL 70-110 TESTED AT [address] [address] THROMBOELASTOGRAPH (TEG)2017-09-26 18:25:00* Test Item Value Reference Range Comments TEG ACTIVATED CLOTTING TIME (BEAKER) (test iitf=4328) 5.2 minutes 4.0-7.0 TEG FIBRINOGEN ACTIVITY (BEAKER) (test eklh=0625) 72.1 degrees 61.0-73.0 TEG PLT. AGGREGATION (BEAKER) (test wvah=0278) 69.6 MM 55.0-65.0 TEG FIBRINOLYSIS (BEAKER) (test oeto=9834) 0.3 % 0.0-5.0 TGH ACTIVATED CLOTTING TIME (BEAKER) (test kdzr=4612) 4.4 minutes 4.0-7.0 TGH FIBRINOGEN ACTIVITY (BEAKER) (test zpjv=5471) 73.2 degrees 61.0-73.0 TGH PLT. AGGREGATION (BEAKER) (test mtoj=8350) 66.0 MM 55.0-65.0 TGH FIBRINOLYSIS (BEAKER) (test rwjb=4480) 0.0 % 0.0-5.0 POCT-GLUCOSE [id number] 18:20:00* Test Item Value Reference Range Comments POC-GLUCOSE METER (BEAKER) (test favk=1944) 245 mg/dL 70-110 TESTED AT [address] [address] BASIC METABOLIC [id number] 17:19:00* Test Item Value Reference Range Comments SODIUM (BEAKER) (test rcnb=821) 139 meq/L 136-145 POTASSIUM (BEAKER) (test ltwr=329) 4.3 meq/L 3.5-5.1 CHLORIDE (BEAKER) (test vslv=784) 107 meq/L 98-107 CO2 (BEAKER) (test jvcw=681) 23 meq/L 22-29 BLOOD UREA NITROGEN (BEAKER) (test kopl=559) 21 mg/dL 7-21 CREATININE (BEAKER) (test xzeb=694) 0.94 mg/dL 0.57-1.25 GLUCOSE RANDOM (BEAKER) (test hypn=409) 241 mg/dL 70-105 CALCIUM (BEAKER) (test noxu=712) 10.7 mg/dL 8.4-10.2 EGFR (BEAKER) (test hgvz=2584) 61 mL/min/1.73 sq m ESTIMATED GFR IS NOT ACCURATE CREATININE CLEARANCE IN PREDICTING GLOMERULAR FILTRATION RATE. ESTIMATED GFR IS NOT APPLICABLE FOR DIALYSIS PATIENTS. Specimen slightly [id number] 16:55:00* Test Item Value Reference Range Comments FIBRINOGEN LEVEL (BEAKER) (test hkvm=300) 340 mg/dl 225-434 [id number] 16:55:00* Test Item Value Reference Range Comments PARTIAL THROMBOPLASTIN TIME (BEAKER) (test sgiw=478) 31.3 seconds 22.5-36.0 PROTHROMBIN TIME/[id number] 16:54:00* Test Item Value Reference Range Comments PROTIME (BEAKER) (test mpic=805) 18.5 seconds 11.7-14.7 INR (BEAKER) (test rgkg=559) 1.5 <=5.9 RECOMMENDED COUMADIN/WARFARIN INR THERAPY RANGESSTANDARD DOSE: 2.0 - 3.0 Inclu gloria: PROPHYLAXIS for venous thrombosis, systemic embolization; TREATMENT for gilbert ous thrombosis and/or pulmonary embolus.HIGH RISK: Target INR is 2.5-3.5 for pat ients with mechanical heart valves.RAD, CHEST, 1 VIEW, NON [id number] 16:44:00Reason for exam:->Post-opShould this be performed at the bedside?->Yes FINAL REPORT CHEST ONE VIEW HISTORY: Postoperative examin ation COMPARISON: 09/14/2017 FINDINGS: Single portable AP examination of the ches t was performed. An endotracheal tube is present, with its tip 4 cm proximal to the christy. Right jugular pulmonary arterial catheter tip is in the right pulmo nary artery region. Nasogastric tube tip is in the region of the stomach. Lungs clear. No pleural effusions or pneumothorax. Cardiac shadow and thoracic aorta a re normal in caliber. Mild degenerative changes are noted in the spine. Surgical clips are present in the abdomen. Signed: Merlin Hoffeport Verified Date/T sierra: 09/26/2017 16:44:38 Reading Location: [facility] C0X Ortho Consult Reading R oom W/PLT COUNT & AUTO [id number] 16:38:00* Test Item Value Reference Range Comments WHITE BLOOD CELL COUNT (BEAKER) (test alru=827) 9.1 K/ L 3.5-10.5 RED BLOOD CELL COUNT (BEAKER) (test gbcj=868) 3.84 M/ L 3.93-5.22 HEMOGLOBIN (BEAKER) (test noqd=231) 11.2 GM/DL 11.2-15.7 HEMATOCRIT (BEAKER) (test brwq=906) 33.0 % 34.1-44.9 MEAN CORPUSCULAR VOLUME (BEAKER) (test rvld=931) 85.9 fL 79.4-94.8 MEAN CORPUSCULAR HEMOGLOBIN (BEAKER) (test lkdd=812) 29.2 pg 25.6-32.2 MEAN CORPUSCULAR HEMOGLOBIN CONC (BEAKER) (test saxw=197) 33.9 GM/DL 32.2-35.5 RED CELL DISTRIBUTION WIDTH (BEAKER) (test jmkv=672) 15.6 % 11.7-14.4 PLATELET COUNT (BEAKER) (test ohvm=094) 163 K/CU MM 150-450 MEAN PLATELET VOLUME (BEAKER) (test ljvh=796) 10.6 fL 9.4-12.3 NUCLEATED RED BLOOD CELLS (BEAKER) (test quym=243) 0 /100 WBC 0-0 NEUTROPHILS RELATIVE PERCENT (BEAKER) (test jcqz=529) 90 % LYMPHOCYTES RELATIVE PERCENT (BEAKER) (test zyjc=977) 5 % MONOCYTES RELATIVE PERCENT (BEAKER) (test rhep=083) 5 % EOSINOPHILS RELATIVE PERCENT (BEAKER) (test ddrs=483) 0 % BASOPHILS RELATIVE PERCENT (BEAKER) (test jmiz=700) 0 % NEUTROPHILS ABSOLUTE COUNT (BEAKER) (test yxtc=046) 8.19 K/ L 1.56-6.13 LYMPHOCYTES ABSOLUTE COUNT (BEAKER) (test vfwn=606) 0.43 K/ L 1.18-3.74 MONOCYTES ABSOLUTE COUNT (BEAKER) (test urfv=613) 0.45 K/ L 0.24-0.36 EOSINOPHILS ABSOLUTE COUNT (BEAKER) (test ntat=958) 0.00 K/ L 0.04-0.36 BASOPHILS ABSOLUTE COUNT (BEAKER) (test glqs=500) 0.01 K/ L 0.01-0.08 IMMATURE GRANULOCYTES-RELATIVE PERCENT (BEAKER) (test ptcq=0069) 0 % 0-1 CALCIUM, [id number] 16:36:00* Test Item Value Reference Range Comments CALCIUM IONIZED (BEAKER) (test wmgi=812) 1.40 mmol/L 1.12-1.27 PH, BLOOD (BEAKER) (test xirp=7061) 7.48 POTASSIUM-STAT [id number] 16:35:00* Test Item Value Reference Range Comments POTASSIUM (BEAKER) (test kqzn=202) 4.1 meq/L 3.6-5.5 OXYGEN SATURATION, [id number] 16:35:00* Test Item Value Reference Range Comments O2 SATURATION (MEASURED) (BEAKER) (test fvgz=8247) 79.9 % BLOOD GAS, [id number] 16:35:00* Test Item Value Reference Range Comments PH ARTERIAL (BEAKER) (test ulql=585) 7.48 7.35-7.45 PCO2 ARTERIAL (BEAKER) (test txtt=808) 31 mmHg 35-45 PO2 ARTERIAL (BEAKER) (test llty=972) 261 mmHg 80-90 O2 SATURATION ARTERIAL (BEAKER) (test eprs=948) 99.7 % 96.0-97.0 HCO3 ARTERIAL (BEAKER) (test kpwp=387) 24 mmol/L 21-29 BASE EXCESS ARTERIAL (BEAKER) (test pnhh=224) -0.3 mmol/L -2.0-3.0 PATIENT TEMPERATURE (BEAKER) (test iltl=2926) 34.2 C FIO2 (BEAKER) (test ansu=6915) 60.0 % SODIUM NA-STAT [id number] 16:35:00* Test Item Value Reference Range Comments SODIUM (BEAKER) (test wtfe=340) 134 meq/L 135-148 GLUCOSE-STAT [id number] 16:35:00* Test Item Value Reference Range Comments GLUCOSE RANDOM (BEAKER) (test ojwt=886) 233 mg/dL 70-110 HGB/HCT (H&H) - STAT [id number] 16:35:00* Test Item Value Reference Range Comments HEMOGLOBIN (BEAKER) (test gzwh=451) 11.8 g/dL 12.0-15.0 HEMATOCRIT (BEAKER) (test nzjr=362) 35.0 % 36.0-45.0 THROMBOELASTOGRAPH (TEG)[id number] 15:35:00* Test Item Value Reference Range Comments TEG ACTIVATED CLOTTING TIME (BEAKER) (test wfbk=6677) 3.7 minutes 4.0-7.0 TEG FIBRINOGEN ACTIVITY (BEAKER) (test omnl=8081) 74.3 degrees 61.0-73.0 TEG PLT. AGGREGATION (BEAKER) (test csef=6085) 67.6 MM 55.0-65.0 TGH ACTIVATED CLOTTING TIME (BEAKER) (test dbhe=4447) 3.8 minutes 4.0-7.0 TGH FIBRINOGEN ACTIVITY (BEAKER) (test hdef=0247) 73.6 degrees 61.0-73.0 TGH PLT. AGGREGATION (BEAKER) (test fqzy=5134) 65.5 MM 55.0-65.0 PROTHROMBIN TIME/[id number] 15:03:00* Test Item Value Reference Range Comments PROTIME (BEAKER) (test rfpn=060) 19.5 seconds 11.7-14.7 INR (BEAKER) (test pchv=714) 1.7 <=5.9 RECOMMENDED COUMADIN/WARFARIN INR THERAPY RANGESSTANDARD DOSE: 2.0 - 3.0 Inclu gloria: PROPHYLAXIS for venous thrombosis, systemic embolization; TREATMENT for gilbert ous thrombosis and/or pulmonary embolus.HIGH RISK: Target INR is 2.5-3.5 for pat ients with mechanical heart valves.[id number] 15:03:00* Test Item Value Reference Range Comments FIBRINOGEN LEVEL (BEAKER) (test ljxa=915) 273 mg/dl 225-434 [id number] 15:03:00* Test Item Value Reference Range Comments PARTIAL THROMBOPLASTIN TIME (BEAKER) (test wapa=680) 34.7 seconds 22.5-36.0 PLATELET [id number] 14:56:00* Test Item Value Reference Range Comments PLATELET COUNT (BEAKER) (test uqnt=450) 151 K/CU MM 150-450 Discordant result compared to previous result; clinical correlation required. CALCIUM, [id number] 14:46:00* Test Item Value Reference Range Comments CALCIUM IONIZED (BEAKER) (test ggdp=513) 1.36 mmol/L 1.12-1.27 PH, BLOOD (BEAKER) (test doff=4128) 7.39 GLUCOSE-STAT [id number] 14:46:00* Test Item Value Reference Range Comments GLUCOSE RANDOM (BEAKER) (test ekrk=176) 248 mg/dL 70-110 SODIUM NA-STAT [id number] 14:46:00* Test Item Value Reference Range Comments SODIUM (BEAKER) (test rmxo=363) 134 meq/L 135-148 HGB/HCT (H&H) - STAT [id number] 14:46:00* Test Item Value Reference Range Comments HEMOGLOBIN (BEAKER) (test mvnt=719) 10.4 g/dL 12.0-15.0 HEMATOCRIT (BEAKER) (test masl=670) 31.0 % 36.0-45.0 BLOOD GAS, [id number] 14:45:00* Test Item Value Reference Range Comments PH ARTERIAL (BEAKER) (test shtz=365) 7.43 7.35-7.45 PCO2 ARTERIAL (BEAKER) (test inat=592) 36 mmHg 35-45 PO2 ARTERIAL (BEAKER) (test qqgd=507) 207 mmHg 80-90 O2 SATURATION ARTERIAL (BEAKER) (test dabn=823) 99.5 % 96.0-97.0 HCO3 ARTERIAL (BEAKER) (test kxwg=658) 24 mmol/L 21-29 BASE EXCESS ARTERIAL (BEAKER) (test kdvz=583) -0.8 mmol/L -2.0-3.0 PATIENT TEMPERATURE (BEAKER) (test pjzq=6339) 34.3 C FIO2 (BEAKER) (test bmsi=8193) 40.0 % POTASSIUM-STAT [id number] 14:44:00* Test Item Value Reference Range Comments POTASSIUM (BEAKER) (test behm=059) 4.4 meq/L 3.6-5.5 POTASSIUM-STAT [id number] 13:55:00* Test Item Value Reference Range Comments POTASSIUM (BEAKER) (test ungh=959) 4.6 meq/L 3.6-5.5 CALCIUM, [id number] 13:55:00* Test Item Value Reference Range Comments CALCIUM IONIZED (BEAKER) (test zgcl=702) 1.19 mmol/L 1.12-1.27 PH, BLOOD (BEAKER) (test ghqt=3896) 7.32 BLOOD GAS, [id number] 13:55:00* Test Item Value Reference Range Comments PH ARTERIAL (BEAKER) (test qark=929) 7.36 7.35-7.45 PCO2 ARTERIAL (BEAKER) (test ucmx=947) 40 mmHg 35-45 PO2 ARTERIAL (BEAKER) (test vpoq=836) 222 mmHg 80-90 O2 SATURATION ARTERIAL (BEAKER) (test unnt=993) 99.5 % 96.0-97.0 HCO3 ARTERIAL (BEAKER) (test gycp=591) 23 mmol/L 21-29 BASE EXCESS ARTERIAL (BEAKER) (test kqew=006) -3.2 mmol/L -2.0-3.0 PATIENT TEMPERATURE (BEAKER) (test dakw=2088) 34.3 C FIO2 (BEAKER) (test nwou=7870) 40.0 % SODIUM NA-STAT [id number] 13:55:00* Test Item Value Reference Range Comments SODIUM (BEAKER) (test khqk=228) 131 meq/L 135-148 GLUCOSE-STAT [id number] 13:55:00* Test Item Value Reference Range Comments GLUCOSE RANDOM (BEAKER) (test puam=581) 256 mg/dL 70-110 HGB/HCT (H&H) - STAT [id number] 13:55:00* Test Item Value Reference Range Comments HEMOGLOBIN (BEAKER) (test icaj=677) 8.9 g/dL 12.0-15.0 HEMATOCRIT (BEAKER) (test jwfz=227) 26.0 % 36.0-45.0 BLOOD GAS, [id number] 13:22:00* Test Item Value Reference Range Comments PH ARTERIAL (BEAKER) (test lfnu=752) 7.39 7.35-7.45 PCO2 ARTERIAL (BEAKER) (test dhlc=325) 40 mmHg 35-45 PO2 ARTERIAL (BEAKER) (test fvop=370) 215 mmHg 80-90 O2 SATURATION ARTERIAL (BEAKER) (test sipx=108) 99.4 % 96.0-97.0 HCO3 ARTERIAL (BEAKER) (test vmpf=284) 24 mmol/L 21-29 BASE EXCESS ARTERIAL (BEAKER) (test gufz=802) -1.6 mmol/L -2.0-3.0 PATIENT TEMPERATURE (BEAKER) (test ygjv=0652) 34.6 C FIO2 (BEAKER) (test cvyf=5469) 40.0 % GLUCOSE-STAT [id number] 13:22:00* Test Item Value Reference Range Comments GLUCOSE RANDOM (BEAKER) (test syyp=354) 200 mg/dL 70-110 SODIUM NA-STAT [id number] 13:22:00* Test Item Value Reference Range Comments SODIUM (BEAKER) (test atid=477) 131 meq/L 135-148 HGB/HCT (H&H) - STAT [id number] 13:22:00* Test Item Value Reference Range Comments HEMOGLOBIN (BEAKER) (test rofl=320) 8.7 g/dL 12.0-15.0 HEMATOCRIT (BEAKER) (test ijkt=039) 26.0 % 36.0-45.0 POTASSIUM-STAT [id number] 13:20:00* Test Item Value Reference Range Comments POTASSIUM (BEAKER) (test qtse=242) 4.4 meq/L 3.6-5.5 GLUCOSE-STAT [id number] 12:08:00* Test Item Value Reference Range Comments GLUCOSE RANDOM (BEAKER) (test kuuq=202) 171 mg/dL 70-110 SODIUM NA-STAT [id number] 12:08:00* Test Item Value Reference Range Comments SODIUM (BEAKER) (test blqt=457) 134 meq/L 135-148 HGB/HCT (H&H) - STAT [id number] 12:08:00* Test Item Value Reference Range Comments HEMOGLOBIN (BEAKER) (test rvmr=837) 9.3 g/dL 12.0-15.0 HEMATOCRIT (BEAKER) (test kurw=675) 27.0 % 36.0-45.0 CALCIUM, [id number] 12:08:00* Test Item Value Reference Range Comments CALCIUM IONIZED (BEAKER) (test jwsj=474) 1.28 mmol/L 1.12-1.27 PH, BLOOD (BEAKER) (test qtfj=4508) 7.34 POTASSIUM-STAT [id number] 12:07:00* Test Item Value Reference Range Comments POTASSIUM (BEAKER) (test lerl=166) 4.2 meq/L 3.6-5.5 BLOOD GAS, [id number] 12:07:00* Test Item Value Reference Range Comments PH ARTERIAL (BEAKER) (test qhpr=184) 7.37 7.35-7.45 PCO2 ARTERIAL (BEAKER) (test ygnf=389) 44 mmHg 35-45 PO2 ARTERIAL (BEAKER) (test spoc=369) 154 mmHg 80-90 O2 SATURATION ARTERIAL (BEAKER) (test fryf=501) 99.0 % 96.0-97.0 HCO3 ARTERIAL (BEAKER) (test grsr=410) 25 mmol/L 21-29 BASE EXCESS ARTERIAL (BEAKER) (test stcf=346) -0.6 mmol/L -2.0-3.0 PATIENT TEMPERATURE (BEAKER) (test fvoy=1240) 34.9 C FIO2 (BEAKER) (test hosn=3268) 40.0 % BLOOD GAS, [id number] 11:28:00* Test Item Value Reference Range Comments PH ARTERIAL (BEAKER) (test vpag=544) 7.38 7.35-7.45 PCO2 ARTERIAL (BEAKER) (test zsoi=959) 39 mmHg 35-45 PO2 ARTERIAL (BEAKER) (test xdue=812) 172 mmHg 80-90 O2 SATURATION ARTERIAL (BEAKER) (test mcmj=330) 99.2 % 96.0-97.0 HCO3 ARTERIAL (BEAKER) (test tsop=684) 23 mmol/L 21-29 BASE EXCESS ARTERIAL (BEAKER) (test mhfk=707) -3.0 mmol/L -2.0-3.0 PATIENT TEMPERATURE (BEAKER) (test yjwc=5692) 35.0 C FIO2 (BEAKER) (test qxdk=5572) 40.0 % GLUCOSE-STAT [id number] 11:28:00* Test Item Value Reference Range Comments GLUCOSE RANDOM (BEAKER) (test wfcv=271) 145 mg/dL 70-110 SODIUM NA-STAT [id number] 11:28:00* Test Item Value Reference Range Comments SODIUM (BEAKER) (test sltt=112) 132 meq/L 135-148 HGB/HCT (H&H) - STAT [id number] 11:28:00* Test Item Value Reference Range Comments HEMOGLOBIN (BEAKER) (test hxel=418) 9.3 g/dL 12.0-15.0 HEMATOCRIT (BEAKER) (test ywkh=324) 27.0 % 36.0-45.0 CALCIUM, [id number] 11:28:00* Test Item Value Reference Range Comments CALCIUM IONIZED (BEAKER) (test snrt=017) 1.48 mmol/L 1.12-1.27 PH, BLOOD (BEAKER) (test msil=8704) 7.35 POTASSIUM-STAT [id number] 11:27:00* Test Item Value Reference Range Comments POTASSIUM (BEAKER) (test ahaa=969) 4.0 meq/L 3.6-5.5 CALCIUM, [id number] 10:03:00* Test Item Value Reference Range Comments CALCIUM IONIZED (BEAKER) (test qnwp=171) 1.59 mmol/L 1.12-1.27 PH, BLOOD (BEAKER) (test tlac=5080) 7.38 BLOOD GAS, [id number] 10:02:00* Test Item Value Reference Range Comments PH ARTERIAL (BEAKER) (test kxrl=312) 7.40 7.35-7.45 PCO2 ARTERIAL (BEAKER) (test sria=645) 38 mmHg 35-45 PO2 ARTERIAL (BEAKER) (test zitv=402) 430 mmHg 80-90 O2 SATURATION ARTERIAL (BEAKER) (test vjwl=723) 99.8 % 96.0-97.0 HCO3 ARTERIAL (BEAKER) (test vgld=861) 23 mmol/L 21-29 BASE EXCESS ARTERIAL (BEAKER) (test csoq=128) -1.9 mmol/L -2.0-3.0 PATIENT TEMPERATURE (BEAKER) (test xmaf=5881) 35.6 C FIO2 (BEAKER) (test oigk=6360) 100.0 % SODIUM NA-STAT [id number] 10:02:00* Test Item Value Reference Range Comments SODIUM (BEAKER) (test hdxv=262) 132 meq/L 135-148 GLUCOSE-STAT [id number] 10:02:00* Test Item Value Reference Range Comments GLUCOSE RANDOM (BEAKER) (test crkb=997) 122 mg/dL 70-110 HGB/HCT (H&H) - STAT [id number] 10:02:00* Test Item Value Reference Range Comments HEMOGLOBIN (BEAKER) (test cbwt=501) 9.2 g/dL 12.0-15.0 HEMATOCRIT (BEAKER) (test zooq=323) 27.0 % 36.0-45.0 POTASSIUM-STAT [id number] 10:01:00* Test Item Value Reference Range Comments POTASSIUM (BEAKER) (test lcio=812) 3.7 meq/L 3.6-5.5 POTASSIUM-STAT [id number] 08:48:00* Test Item Value Reference Range Comments POTASSIUM (BEAKER) (test pelh=858) 3.9 meq/L 3.6-5.5 BLOOD GAS, [id number] 08:48:00* Test Item Value Reference Range Comments PH ARTERIAL (BEAKER) (test sqkl=377) 7.49 7.35-7.45 PCO2 ARTERIAL (BEAKER) (test odev=670) 29 mmHg 35-45 PO2 ARTERIAL (BEAKER) (test suxt=675) 292 mmHg 80-90 O2 SATURATION ARTERIAL (BEAKER) (test rebs=295) 99.7 % 96.0-97.0 HCO3 ARTERIAL (BEAKER) (test lahs=738) 22 mmol/L 21-29 BASE EXCESS ARTERIAL (BEAKER) (test hqkt=211) -0.9 mmol/L -2.0-3.0 PATIENT TEMPERATURE (BEAKER) (test pvwp=0971) 36.0 C FIO2 (BEAKER) (test vjug=6275) 100.0 % GLUCOSE-STAT [id number] 08:48:00* Test Item Value Reference Range Comments GLUCOSE RANDOM (BEAKER) (test ocmu=473) 113 mg/dL 70-110 SODIUM NA-STAT [id number] 08:48:00* Test Item Value Reference Range Comments SODIUM (BEAKER) (test aahg=814) 132 meq/L 135-148 HGB/HCT (H&H) - STAT [id number] 08:48:00* Test Item Value Reference Range Comments HEMOGLOBIN (BEAKER) (test wprq=818) 9.6 g/dL 12.0-15.0 HEMATOCRIT (BEAKER) (test clep=755) 28.0 % 36.0-45.0 [id number] 08:05:00* Test Item Value Reference Range Comments PHOSPHORUS (BEAKER) (test liif=206) 3.0 mg/dL 2.3-4.7 [id number] 08:05:00* Test Item Value Reference Range Comments MAGNESIUM (BEAKER) (test qbur=664) 2.2 mg/dL 1.6-2.6 POCT-GLUCOSE [id number] 07:51:00* Test Item Value Reference Range Comments POC-GLUCOSE METER (BEAKER) (test pqjr=9560) 108 mg/dL 70-110 TESTED AT [facility] [address] [facility] [address] BASIC METABOLIC [id number] 07:35:00* Test Item Value Reference Range Comments SODIUM (BEAKER) (test crfj=350) 135 meq/L 136-145 POTASSIUM (BEAKER) (test acmu=782) 4.3 meq/L 3.5-5.1 CHLORIDE (BEAKER) (test iexp=272) 102 meq/L 98-107 CO2 (BEAKER) (test clni=021) 23 meq/L 22-29 BLOOD UREA NITROGEN (BEAKER) (test ywke=992) 24 mg/dL 7-21 CREATININE (BEAKER) (test aypd=591) 0.93 mg/dL 0.57-1.25 GLUCOSE RANDOM (BEAKER) (test gcav=885) 87 mg/dL 70-105 CALCIUM (BEAKER) (test xpcf=770) 9.9 mg/dL 8.4-10.2 EGFR (BEAKER) (test lyrp=2787) 62 mL/min/1.73 sq m ESTIMATED GFR IS NOT ACCURATE CREATININE CLEARANCE IN PREDICTING GLOMERULAR FILTRATION RATE. ESTIMATED GFR IS NOT APPLICABLE FOR DIALYSIS PATIENTS. [id number] 07:15:00* Test Item Value Reference Range Comments PARTIAL THROMBOPLASTIN TIME (BEAKER) (test adfg=218) 32.7 seconds 22.5-36.0 PROTHROMBIN TIME/[id number] 07:14:00* Test Item Value Reference Range Comments PROTIME (BEAKER) (test uyhb=994) 16.5 seconds 11.7-14.7 INR (BEAKER) (test nble=439) 1.3 <=5.9 RECOMMENDED COUMADIN/WARFARIN INR THERAPY RANGESSTANDARD DOSE: 2.0 - 3.0 Inclu gloria: PROPHYLAXIS for venous thrombosis, systemic embolization; TREATMENT for gilbert ous thrombosis and/or pulmonary embolus.HIGH RISK: Target INR is 2.5-3.5 for pat ients with mechanical heart valves.CBC W/PLT COUNT & AUTO [id number] 06:23:00* Test Item Value Reference Range Comments WHITE BLOOD CELL COUNT (BEAKER) (test bhue=286) 8.7 K/ L 3.5-10.5 RED BLOOD CELL COUNT (BEAKER) (test bxer=157) 3.46 M/ L 3.93-5.22 HEMOGLOBIN (BEAKER) (test hhoy=547) 8.9 GM/DL 11.2-15.7 HEMATOCRIT (BEAKER) (test dnev=373) 28.7 % 34.1-44.9 MEAN CORPUSCULAR VOLUME (BEAKER) (test ehxy=365) 82.9 fL 79.4-94.8 MEAN CORPUSCULAR HEMOGLOBIN (BEAKER) (test ppdf=003) 25.7 pg 25.6-32.2 MEAN CORPUSCULAR HEMOGLOBIN CONC (BEAKER) (test sons=699) 31.0 GM/DL 32.2-35.5 RED CELL DISTRIBUTION WIDTH (BEAKER) (test ilnk=271) 18.2 % 11.7-14.4 PLATELET COUNT (BEAKER) (test zlxq=087) 338 K/CU MM 150-450 MEAN PLATELET VOLUME (BEAKER) (test ngrt=806) 10.8 fL 9.4-12.3 NUCLEATED RED BLOOD CELLS (BEAKER) (test upxi=455) 0 /100 WBC 0-0 NEUTROPHILS RELATIVE PERCENT (BEAKER) (test lhuw=237) 70 % LYMPHOCYTES RELATIVE PERCENT (BEAKER) (test rsmz=160) 21 % MONOCYTES RELATIVE PERCENT (BEAKER) (test dzrl=958) 7 % EOSINOPHILS RELATIVE PERCENT (BEAKER) (test nroi=932) 1 % BASOPHILS RELATIVE PERCENT (BEAKER) (test xchy=894) 1 % NEUTROPHILS ABSOLUTE COUNT (BEAKER) (test vslt=131) 6.10 K/ L 1.56-6.13 LYMPHOCYTES ABSOLUTE COUNT (BEAKER) (test bvte=780) 1.82 K/ L 1.18-3.74 MONOCYTES ABSOLUTE COUNT (BEAKER) (test nhkq=771) 0.59 K/ L 0.24-0.36 EOSINOPHILS ABSOLUTE COUNT (BEAKER) (test csyt=360) 0.12 K/ L 0.04-0.36 BASOPHILS ABSOLUTE COUNT (BEAKER) (test lhhy=230) 0.05 K/ L 0.01-0.08 IMMATURE GRANULOCYTES-RELATIVE PERCENT (BEAKER) (test mnoy=6283) 1 % 0-1 POCT-GLUCOSE [id number] 21:21:00* Test Item Value Reference Range Comments POC-GLUCOSE METER (BEAKER) (test ldzo=6022) 134 mg/dL 70-110 TESTED AT [address] [address] POCT-GLUCOSE [id number] 16:56:00* Test Item Value Reference Range Comments POC-GLUCOSE METER (BEAKER) (test wawz=3866) 149 mg/dL 70-110 TESTED AT [address] [address] POCT-GLUCOSE [id number] 13:31:00* Test Item Value Reference Range Comments POC-GLUCOSE METER (BEAKER) (test ykdv=6845) 185 mg/dL 70-110 TESTED AT [address] [address] POCT-GLUCOSE [id number] 09:39:00* Test Item Value Reference Range Comments POC-GLUCOSE METER (BEAKER) (test irbf=1952) 91 mg/dL 70-110 TESTED AT [address] [address] BASIC METABOLIC [id number] 06:03:00* Test Item Value Reference Range Comments SODIUM (BEAKER) (test dnrv=153) 136 meq/L 136-145 POTASSIUM (BEAKER) (test lonr=815) 4.4 meq/L 3.5-5.1 CHLORIDE (BEAKER) (test eita=864) 103 meq/L 98-107 CO2 (BEAKER) (test djjt=248) 22 meq/L 22-29 BLOOD UREA NITROGEN (BEAKER) (test niom=803) 21 mg/dL 7-21 CREATININE (BEAKER) (test cfdu=831) 0.96 mg/dL 0.57-1.25 GLUCOSE RANDOM (BEAKER) (test lyne=047) 89 mg/dL 70-105 CALCIUM (BEAKER) (test ihyq=694) 9.9 mg/dL 8.4-10.2 EGFR (BEAKER) (test mswf=9827) 59 mL/min/1.73 sq m ESTIMATED GFR IS NOT ACCURATE CREATININE CLEARANCE IN PREDICTING GLOMERULAR FILTRATION RATE. ESTIMATED GFR IS NOT APPLICABLE FOR DIALYSIS PATIENTS. CBC W/PLT COUNT & AUTO [id number] 05:17:00* Test Item Value Reference Range Comments WHITE BLOOD CELL COUNT (BEAKER) (test tety=880) 8.0 K/ L 3.5-10.5 RED BLOOD CELL COUNT (BEAKER) (test uwii=593) 2.82 M/ L 3.93-5.22 HEMOGLOBIN (BEAKER) (test puav=102) 7.1 GM/DL 11.2-15.7 HEMATOCRIT (BEAKER) (test mygh=381) 23.2 % 34.1-44.9 MEAN CORPUSCULAR VOLUME (BEAKER) (test ujnp=244) 82.3 fL 79.4-94.8 MEAN CORPUSCULAR HEMOGLOBIN (BEAKER) (test zjff=014) 25.2 pg 25.6-32.2 MEAN CORPUSCULAR HEMOGLOBIN CONC (BEAKER) (test qaex=926) 30.6 GM/DL 32.2-35.5 RED CELL DISTRIBUTION WIDTH (BEAKER) (test ayxz=356) 19.5 % 11.7-14.4 PLATELET COUNT (BEAKER) (test kezl=791) 385 K/CU MM 150-450 MEAN PLATELET VOLUME (BEAKER) (test unvm=304) 10.3 fL 9.4-12.3 NUCLEATED RED BLOOD CELLS (BEAKER) (test bzwq=316) 0 /100 WBC 0-0 NEUTROPHILS RELATIVE PERCENT (BEAKER) (test uzsc=488) 73 % LYMPHOCYTES RELATIVE PERCENT (BEAKER) (test myie=462) 19 % MONOCYTES RELATIVE PERCENT (BEAKER) (test nyrh=677) 7 % EOSINOPHILS RELATIVE PERCENT (BEAKER) (test rsqo=503) 1 % BASOPHILS RELATIVE PERCENT (BEAKER) (test jpmr=000) 1 % NEUTROPHILS ABSOLUTE COUNT (BEAKER) (test hvlx=592) 5.80 K/ L 1.56-6.13 LYMPHOCYTES ABSOLUTE COUNT (BEAKER) (test uuxx=807) 1.54 K/ L 1.18-3.74 MONOCYTES ABSOLUTE COUNT (BEAKER) (test cril=513) 0.52 K/ L 0.24-0.36 EOSINOPHILS ABSOLUTE COUNT (BEAKER) (test jnvz=799) 0.06 K/ L 0.04-0.36 BASOPHILS ABSOLUTE COUNT (BEAKER) (test gzhw=598) 0.04 K/ L 0.01-0.08 IMMATURE GRANULOCYTES-RELATIVE PERCENT (BEAKER) (test jmsg=7935) 0 % 0-1 POCT-GLUCOSE [id number] 21:08:00* Test Item Value Reference Range Comments POC-GLUCOSE METER (BEAKER) (test tciy=5868) 100 mg/dL 70-110 TESTED AT [facility] [address] [facility] [address] BASIC METABOLIC [id number] 09:32:00* Test Item Value Reference Range Comments SODIUM (BEAKER) (test dcwv=710) 136 meq/L 136-145 POTASSIUM (BEAKER) (test mqsx=146) 4.0 meq/L 3.5-5.1 CHLORIDE (BEAKER) (test szji=492) 102 meq/L 98-107 CO2 (BEAKER) (test lbjw=996) 20 meq/L 22-29 BLOOD UREA NITROGEN (BEAKER) (test vrrs=834) 23 mg/dL 7-21 CREATININE (BEAKER) (test vrub=557) 1.23 mg/dL 0.57-1.25 GLUCOSE RANDOM (BEAKER) (test xksz=503) 95 mg/dL 70-105 CALCIUM (BEAKER) (test kyus=745) 10.0 mg/dL 8.4-10.2 EGFR (BEAKER) (test kcib=0797) 45 mL/min/1.73 sq m ESTIMATED GFR IS NOT ACCURATE CREATININE CLEARANCE IN PREDICTING GLOMERULAR FILTRATION RATE. ESTIMATED GFR IS NOT APPLICABLE FOR DIALYSIS PATIENTS. CBC W/PLT COUNT & AUTO [id number] 09:10:00* Test Item Value Reference Range Comments WHITE BLOOD CELL COUNT (BEAKER) (test naok=733) 8.7 K/ L 3.5-10.5 RED BLOOD CELL COUNT (BEAKER) (test fref=337) 3.09 M/ L 3.93-5.22 HEMOGLOBIN (BEAKER) (test ncwp=585) 7.7 GM/DL 11.2-15.7 HEMATOCRIT (BEAKER) (test dmpx=199) 25.1 % 34.1-44.9 MEAN CORPUSCULAR VOLUME (BEAKER) (test fcdf=870) 81.2 fL 79.4-94.8 MEAN CORPUSCULAR HEMOGLOBIN (BEAKER) (test hspp=595) 24.9 pg 25.6-32.2 MEAN CORPUSCULAR HEMOGLOBIN CONC (BEAKER) (test kjdv=253) 30.7 GM/DL 32.2-35.5 RED CELL DISTRIBUTION WIDTH (BEAKER) (test fybz=188) 19.7 % 11.7-14.4 PLATELET COUNT (BEAKER) (test bsdv=987) 382 K/CU MM 150-450 MEAN PLATELET VOLUME (BEAKER) (test zhwa=079) 11.5 fL 9.4-12.3 NUCLEATED RED BLOOD CELLS (BEAKER) (test qgtf=245) 0 /100 WBC 0-0 NEUTROPHILS RELATIVE PERCENT (BEAKER) (test yjuv=151) 81 % LYMPHOCYTES RELATIVE PERCENT (BEAKER) (test pqyq=490) 13 % MONOCYTES RELATIVE PERCENT (BEAKER) (test omwn=070) 4 % EOSINOPHILS RELATIVE PERCENT (BEAKER) (test snqo=644) 0 % BASOPHILS RELATIVE PERCENT (BEAKER) (test lcsi=999) 1 % NEUTROPHILS ABSOLUTE COUNT (BEAKER) (test brar=039) 7.06 K/ L 1.56-6.13 LYMPHOCYTES ABSOLUTE COUNT (BEAKER) (test dsfe=342) 1.14 K/ L 1.18-3.74 MONOCYTES ABSOLUTE COUNT (BEAKER) (test gbei=066) 0.38 K/ L 0.24-0.36 EOSINOPHILS ABSOLUTE COUNT (BEAKER) (test eoqh=938) 0.03 K/ L 0.04-0.36 BASOPHILS ABSOLUTE COUNT (BEAKER) (test uhnu=515) 0.05 K/ L 0.01-0.08 IMMATURE GRANULOCYTES-RELATIVE PERCENT (BEAKER) (test dqys=5352) 0 % 0-1 [id number] 08:57:00* Test Item Value Reference Range Comments PARTIAL THROMBOPLASTIN TIME (BEAKER) (test tizb=643) 35.0 seconds 22.5-36.0 PROTHROMBIN TIME/[id number] 08:56:00* Test Item Value Reference Range Comments PROTIME (BEAKER) (test dyib=578) 15.6 seconds 11.7-14.7 INR ([place]) (test dlkg=769) 1.2 <=5.9 RECOMMENDED COUMADIN/WARFARIN INR THERAPY RANGESSTANDARD DOSE: 2.0 - 3.0 Inclu gloria: PROPHYLAXIS for venous thrombosis, systemic embolization; TREATMENT for gilbert ous thrombosis and/or pulmonary embolus.HIGH RISK: Target INR is 2.5-3.5 for pat ients with mechanical heart valves.CT, BIOPSY, [id number] 11:14:00Reason for exam:->biopsy RIGHT LUNG for metastatic RCCAddendum BeginsREPORT STATUS:A 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 This is concordant with imaging findings. Follow-up noncontrast chest CT in six months to one year is recommended for further evaluation. Signed: Chris Sarah MDReport Verified Date/Time: 09/19/2017 11:14:09 Reading Location: [address] Ortho Consult Reading RoomAddendum EndsFINAL REPORT INDICATION:61-year-old female with right middle lobe nodule and recent diagnosis (July 2017) of renal cell carcinoma. Image guided percutaneous biopsy of the right middle lobe nodule requested. COMPARISON: Outside facility chest CT exam August 17, 2017 TECHNIQUE:CT-guided core biopsy of 10 mm solid nodule in the right middle lobe. The exam was performed according to our department dose-optimization protocol, which includes automated exposure control, adjustments of mA and kV according to patient size. Iterative reconstructions are also sometimes employed. FINDINGS: The procedure was explained to the patient and informed consent was signed. Timeout was p erformed. The patient was positioned supine on the table and preliminary images confirmed a 10 mm solid nodule in the right middle lobe. Also noted is a large h eterogeneous mass of the right kidney, partially imaged, and in keeping with his tory of renal cell carcinoma. Procedural sedation was used for a total of fentan yl 100 mcg IV and Versed 2.0 mg IV. The department of radiology nurse was presen t at the time of procedure. Monitored cardiorespiratory function during consciou s sedation was performed under the radiologist's supervision. Total monitoring t sierra was approximately 80 minutes. The patient's skin was prepped and draped in s tandard sterile fashion. 1% lidocaine was used for local anesthesia. Using a rig ht anterior intercostal approach and CT guidance a 19-gauge introducer needle wa s advanced toward the nodule. The nodule was difficult to reach because of an ov erlying rib. Gantry angle was used and several needle repositions, ultimately wi th the introducer needle within the medial margin of the nodule. Core biopsies w ere obtained using a 20-gauge biopsy needle directed laterally. One good core sa mple was obtained followed by a incomplete core. The patient began to cough and CT fluoroscopy showed pulmonary hemorrhage. Two additional core biopsies were ob tained one of which yielded no tissue and the other yielding an incomplete core. No additional core biopsies were acquired because of the patient's coughing and pulmonary hemorrhage. Post procedure image showed moderate pulmonary hemorrhage and no pneumothorax. IMPRESSION: CT-guided core biopsy of right middle lobe nod ule, complicated by pulmonary hemorrhage. Four core biopsies attempted, with onl y one solid core and two partial cores. Additional cores could not be obtained b ecause of pulmonary hemorrhage and resulting cough. Signed: Chris Sarah [facility] eport Verified Date/Time: 09/14/2017 13:51:32 Reading Location: [facility] B1 C013Y CT Body Reading Room Electronically signed by: CHRIS SARAH M.D. on 11:14 AM TISSUE [id number] 18:05:00Surgical Pathology Report Case: [id number] Authorizing Provider: Violetta Perez MD Collected: 09/14/2017 1304 Ordering Location: [facility] Radiology Main Received: 09/14/2017 1429 Pathologist: Chelo Azar MD Specimen: Lung, Right A. LUNG, RIGHT, SITE NOT SPECIFIED, CT GUIDED BIOPSY: - CHRONIC FIBRINOUS PNEUMONITIS (SEE COMMENT) - NEGATIVE FOR MALIGNANCY Signing Pathologist Direct Phone Line: [phone] signed by Chelo Azar MD on 09/15/2017 at 6:05 PMClinical and radiologic correlation is recommended to determine if the tissue sampled is equal opportunity representative of the lesion.[id number] givenRight lung biopsyThe specimen is received in a formalin-filled container and labeled with the patient's information and labeled "right lung biopsy" and consists of four smalls-red core biopsies ranging in length from 0.2 to 0.4 cm, submitted A1. CG/pl Sections show multiple fragmented pieces of lung parenchyma, one of which shows intra-alveolar fibrin admixed with scant neutrophils. The other fragments are unremarkable. There is no evidence of malignancy in the sampled tis darcy.Immunostain for PAX-8 is negative.The following special studies were perform ed on this case and the interpretation is incorporated in the diagnostic report above:The immunohistochemistry test was developed and its performance characteri stics determined by [facility], Pathology Laboratory. It has n ot been cleared or approved by the U.S. Food and Drug Administration. The FDA batista s determined that such clearance or approval is not necessary. The test is used for clinical purposes. It should not be regarded as investigational or for [facility]. This laboratory is certified under the Clinical Laboratory Improvement Amen dments of 1988 (CLIA-88) as qualified to perform high complexity clinical labora tory testing.RAD, CHEST, PA OR AP, 1 [id number] 17:28:00Reason for exam:-> s/p right lung nodule biopsyShould this be performed at the bedside?->NoFINAL REPORT TECHNIQUE: Frontal chest radiograph dated . CLINICAL HISTORY: S/P right lung nodule COMPARISON STUDY: Chest radiog raph performed earlier the same day. IMPRESSION: Right lung base opacity has dec reased. Left lung is clear. No pleural effusion or pneumothorax. Cardiomediastin al silhouette is normal in size. No pulmonary edema. No fracture. Degenerative c hanges are seen in the spine. Signed: Cynthia Redmondeport Verified Date/ Time: 09/14/2017 17:28:45 Reading Location: [facility] Radiology Reading Room Elec tronically signed by: CYNTIHA REDMOND on 09/14/2017 05:28 PM RAD, CHEST, PA OR AP, 1 [id number] 14:15:00Reason for exam:->s/p right lung nodule biopsyShould this be performed at the bedside?->NoFINAL REPORT INDICATION:Status post right lung nodule biopsy approximately one hour ago. COMPARISON: None. TECHNIQUE: Chest radiograph one view. FINDINGS / IMPRESSION:Nodular opacity in the right midlung represents pulmonary hemorrhage after right middle lobe nodule biopsy. There is no pneumothorax. Cardiac and mediastinal contours and osseous structures unremarkable. Signed: Chris Sarah MDReport Verified Date/Time: 09/14/2017 14:15:19 Reading Location: [facility] B1 C013Y CT Body Reading Room -GLUCOSE [id number] 09:33:00* Test Item Value Reference Range Comments POC-GLUCOSE METER (BEAKER) (test tufm=3756) 100 mg/dL 70-110 TESTED AT [facility] [address] [place] [id number] PT/[id number] 08:41:00* Test Item Value Reference Range Comments PROTIME (BEAKER) (test wfrr=460) 14.7 seconds 11.7-14.7 INR (BEAKER) (test qdaw=196) 1.2 <=5.9 PARTIAL THROMBOPLASTIN TIME (BEAKER) (test enur=754) 32.6 seconds 22.5-36.0 RECOMMENDED COUMADIN/WARFARIN INR THERAPY RANGESSTANDARD DOSE: 2.0 - 3.0 Inclu gloria: PROPHYLAXIS for venous thrombosis, systemic embolization; TREATMENT for gilbert ous thrombosis and/or pulmonary embolus.HIGH RISK: Target INR is 2.5-3.5 for pat ients with mechanical heart valves.PLATELET [id number] 08:29:00* Test Item Value Reference Range Comments PLATELET COUNT (BEAKER) (test jzex=141) 338 K/CU MM 150-450
== END 2018-11-20 07:36 | disposition left against medical advice (07) ==
LOC: ER 06:31
DX: R05 Cough (principal)